=== PATIENT | female | born 1945 | race Caucasian/White ===

== ENCOUNTER → 2016-10-08 | Outpatient (CLI) | payer MEDICARE, BC, OTHER ==
[~2016-10-08] MED LIST: ALEV220C2 PO; CALC600T21 PO; HYDR25TAB PO; TRAM50TA2 PO
[2016-10-08 10:45] LABS: MEAN CORPUSCULAR HEMOGLOBIN 29.4 pg (27.0-33.0); MEAN CORPUSCULAR HGB CONC 33.4 g/dl (32.0-36.5); MEAN CORPUSCULAR VOLUME 88.1 fl (80.0-96.0); WHITE BLOOD COUNT 6.8 K/mm3 (4.0-10.0)
[2016-10-08 10:51] LABS: INR 0.98
[2016-10-08 11:16] LABS: ALBUMIN 4.1 GM/DL (3.2-5.2); ALBUMIN/GLOBULIN RATIO 1.41 (1.00-1.93); ALKALINE PHOSPHATASE 97 U/L (45-117); ALT/SGPT 26 U/L (12-78); ANION GAP 10 MEQ/L (8-16); AST/SGOT 20 U/L (15-37); BILIRUBIN,TOTAL 0.6 MG/DL (0.2-1.0); BLOOD UREA NITROGEN 15 MG/DL (7-18); CALCIUM LEVEL 8.7 MG/DL (8.8-10.2); CARBON DIOXIDE LEVEL 29 MEQ/L (21-32); CHLORIDE LEVEL 101 MEQ/L (98-107); CREATININE FOR GFR 0.82 MG/DL (0.55-1.02); GLOMERULAR FILTRATION RATE > 60.0 (>45); GLUCOSE, FASTING 112 MG/DL (80-110); POTASSIUM SERUM 4.1 MEQ/L (3.5-5.1); SODIUM LEVEL 140 MEQ/L (136-145)
--- NOTE | 2016-10-08 12:27 | REP ---
Chest two views HISTORY: Preop Comparison: None The lungs are clear. The heart is normal in size. The pulmonary vasculature is normal in appearance. The bony structure is intact. IMPRESSION: No acute disease. Signed by Shaun Khoury MD 10/08/2016 12:18 P
--- NOTE | 2016-10-08 22:31 | ECGEPIP ---
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
== END ==
LOC: M ADMPAT 09:24
PROVIDERS: ATTEND Orthopaedic Surgery
DX: Z01.818 Encounter for other preprocedural examination (principal); M17.9 Osteoarthritis of knee, unspecified; I48.91 Unspecified atrial fibrillation; Z79.01 Long term (current) use of anticoagulants; Z79.899 Other long term (current) drug therapy

== ENCOUNTER 2016-10-22 10:00 | Inpatient (IN) | payer MEDICARE, BC, OTHER ==
--- NOTE | 2016-10-15 17:56 | HPE ---
DATE OF ADMISSION: 10/22/2016 CHIEF COMPLAINT: Left knee pain. HISTORY OF PRESENT ILLNESS: This is a pleasant 71-year-old female with progressively worsening left knee pain and stiffness. She has failed to improve with conservative treatment. She has elected for surgery for her continued symptoms. She has pain with weightbearing activities and her activities of daily living. X-rays of her knee are notable for advanced osteoarthritis of the left knee joint. She has consented for a left total knee arthroplasty by Dr. Krzysztof Jones. Medical optimization was performed by Dr. Rodriguez. ALLERGIES: TETRACYCLINE. CURRENT MEDICATIONS: - Hydrochlorothiazide 25 mg a day - Aleve 220 mg as needed - calcium 600 mg every day - tramadol HCl 50 mg one every 4-6 hours as needed PAST MEDICAL HISTORY: Includes hypertension. PAST SURGICAL HISTORY: Includes cataract removal, both eyes, tubal ligation and a lump biopsy. 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 Quit smoking two years ago and does not drink alcohol. FAMILY HISTORY: Noncontributory. REVIEW OF SYSTEMS: This patient denies chest pain, heart palpitations, cough, wheezing, difficulty breathing and shortness of breath. She denies abdominal pain, nausea, vomiting, diarrhea or constipation. She denies recent upper respiratory infection or urinary tract infection symptoms. She does complain of persistent pain in the left knee and pain with weightbearing activities of her left knee. PHYSICAL EXAMINATION: GENERAL: She is well-nourished, well-developed in no acute distress, alert female patient. She walks with a moderate limp favoring her left lower extremity. She does not use assistive devices. VITAL SIGNS: She is 5 feet 3-1/2 inches, weighs 228.4 pounds with a temperature of 96.5, blood pressure 126/88, pulse of 68, respirations of 12. NECK: Supple without adenopathy or jugular venous distension. There were no carotid bruits appreciated upon auscultation. LUNGS: Clear to auscultation without rales or wheeze throughout. HEART: Irregular rate and rhythm. ABDOMEN: Bowel sounds were present. EXTREMITIES: Examination of the knee revealed intact skin. She had decreased range of motion secondary to pain and stiffness and the limb was neurovascularly intact. LABORATORY DATA: EKG showed atrial fibrillation at 68 beats per minute. Chest x-ray showed no acute cardiopulmonary disease processes. Nasal and sinus culture showed normal yves. UA showed 1+ bacteria, otherwise within normal limits with a specific gravity of 1.006. Urine culture showed no growth. Protime was 13.1, INR 0.98. CBC was within normal limits. Sed rate was 15, glucose 112, BUN 15, creatinine 0.82, sodium 140, potassium 4.1. IMPRESSION: 1. Symptomatic osteoarthritis of the left knee joint. 2. Previously undiagnosed atrial fibrillation. PLAN: She is consented for a left total knee arthroplasty by Dr. Krzysztof Jones. That being said, she does have a final clearance appointment with cardiology today with Dr. Alvarez due to her atrial fibrillation. I do not anticipate any issues with that. I believe we will be able to proceed as planned on October 22 for her left total knee arthroplasty.
[~2016-10-22] VITALS: Ht 162.6 cm; Wt 101.0 kg
[~2016-10-22 10:00] MED LIST changes: +BUPIVACAINE HCL 0.5% 10 ML VIAL As Ordered ONE; +EPINEPHrine INJ 1 MG/ML 1ML VIAL/AMP As Ordered ONE; +ROPIvacaine 0.5% 30 ML INJECTION (J2795) As Ordered ONE; +TRANEXAMIC ACID 100 MG/ML 10ML VIAL As Ordered ONE; +ceFAZolin 1GM INJ (J0690) As Ordered ONE
[2016-10-22] MEDS ORDERED: LR 1,000 ML IV SCH ×3 (11:00→16:30)
[2016-10-22] MEDS ORDERED: ACETAMINOPHEN 500 MG TAB PO ONE (11:15)
[2016-10-22] MEDS ORDERED: COUM1TAB17 PO (11:34)
[2016-10-22] MEDS ORDERED: LIDOCAINE 2% INJ 100 MG/5 ML SDV (FOR ANES.) As Ordered ONE (12:24)
[2016-10-22] MEDS ORDERED: MIDAZOLAM INJ 2 MG/2 ML VIAL (J2250) As Ordered ONE ×2 (12:24→12:25)
[2016-10-22] MEDS ORDERED: fentaNYL 100 MCG/2 ML INJECTION (J3010) As Ordered ONE ×3 (12:24→13:27)
[2016-10-22] MEDS ORDERED: PROPOFOL 200 MG/20 ML VIAL As Ordered ONE ×2 (12:24→14:48)
[2016-10-22] MEDS ORDERED: MIDAZOLAM INJ 5 MG/ML VIAL (J2250) IV ONE (13:30)
[2016-10-22] MEDS ORDERED: fentaNYL 100 MCG/2 ML INJECTION (J3010) IV ONE (13:30)
[2016-10-22] MEDS ORDERED: PHENYLephrine HCL 500 MCG/5 ML (100MCG/ML) SYRINGE (J2370) As Ordered ONE (14:27)
[2016-10-22] MEDS ORDERED: ePHEDrine SULFATE 25 MG/5 ML(5MG/ML) SYRINGE As Ordered ONE (14:27)
[2016-10-22] MEDS ORDERED: ONDANSETRON 4MG/2ML VIAL (J2405) As Ordered ONE (15:07)
[2016-10-22] MEDS ORDERED: MORPHINE PCA 1MG/ML 100ML CADD As Ordered ONE (15:42)
[2016-10-22] MEDS ORDERED: EPIDURAL/PCA KEYS XX PRN (16:30)
[2016-10-22] MEDS ORDERED: PATIENT IS CURRENTLY ON AN ON-Q PAIN BUSTER PAIN RELIEF SYSTEM XX SCH (16:30)
[2016-10-22] MEDS ORDERED: ACETAMINOPHEN TAB 650MG DOSE (2X325MG) PO PRN (16:30)
[2016-10-22] MEDS ORDERED: HYDROmorphone HCL 1 MG/ML SYRINGE (J1170) IV PRN (16:30)
[2016-10-22] MEDS ORDERED: NALOXONE INJ 0.4 MG/1 ML VIAL (J2310) IV PRN (16:30)
[2016-10-22] MEDS ORDERED: NALBUPHINE HCL 10 MG/ML AMP (J2300) IV PRN (16:30)
[2016-10-22] MEDS ORDERED: PERCOCET 5MG/325MG TAB PO PRN (16:30)
[2016-10-22] MEDS ORDERED: FLEET ENEMA PR PRN (16:30)
[2016-10-22] MEDS ORDERED: ONDANSETRON 4MG/2ML VIAL (J2405) IV PRN ×2 (16:30)
[2016-10-22] MEDS ORDERED: fentaNYL 100 MCG/2 ML INJECTION (J3010) IV PRN (16:30)
[2016-10-22] MEDS ORDERED: MORPHINE PCA 1MG/ML 100ML CADD IV PRN (16:30)
[2016-10-22] MEDS ORDERED: diphenhydrAMINE INJ 50MG/ML VIAL (J1200) IV PRN (16:30)
[2016-10-22 17:00] VITALS: BP 172/82
[2016-10-22] MEDS ORDERED: WARFARIN SOD 5 MG TAB PO ONE (17:00)
[2016-10-22 17:30] VITALS: BP 147/67
[2016-10-22 18:30] VITALS: BP 132/61
[2016-10-22] MEDS: hydroCHLOROthiazide 25 MG TAB PO SCH (18:44)
[2016-10-22] MEDS: LR 1,000 ML IV SCH (18:44)
--- NOTE | 2016-10-22 20:10 | CR ---
DATE OF CONSULTATION: 10/23/2015 REFERRING PHYSICIAN: Dr. Jones REASON FOR CONSULTATION: Medical management. HOSPITALIZATION COURSE: The patient is a 71-year-old female with a past medical history significant for osteoarthritis, bilateral lower extremity venous stasis, who presented to [facility] on 10/22/2016 for a total left knee replacement by Dr. Jones. The patient has been having chronic left knee pain due to osteoarthritis and the pain has been getting severe and starting to interfere with her activities of daily function. The patient visited Dr. Pan Rodriguez for preoperative clearance on 10/11/2016. Due to the history of abnormal EKG, the patient was referred to see Dr. Bentley on 10/15/2016. The patient was determined not to have any significant cardiac abnormalities and the patient was cleared and optimized for the surgery. PAST MEDICAL HISTORY: 1. Bilateral venous stasis changes of the bilateral lower extremities. 2. Osteoarthritis. PAST SURGICAL HISTORY: 1. Left breast biopsy in 2005 for benign mass. 2. Bilateral cataract surgery in 2004. 3. Tubal ligation in 1976. 4. Tonsillectomy. ALLERGIES: No known drug allergies. CURRENT HOME MEDICATIONS: - hydrochlorothiazide 12.5 mg by mouth daily - Tramadol 50 mg by mouth one daily as needed SOCIAL HISTORY: The patient used to smoke 1-1/2 packs daily for 50 years. She quit 2 years ago. Denies alcohol use. Denies recreational drug use. REVIEW OF SYSTEMS: GENERAL: No fever. No chills. HEENT: No vision changes. No auditory changes. No headaches. LUNGS: No shortness of breath. No cough. No sputum production. CARDIOVASCULAR: No chest pain. No palpitations. GASTROINTESTINAL: No nausea. No vomiting. No abdominal pain. MUSCULOSKELETAL: History of osteoarthritis. Just had a left knee replacement. Otherwise, denies any muscle pain or joint pain. NEUROLOGIC: No numbness or tingling. OBJECTIVE: VITAL SIGNS: Temperature is 97, pulse is 65, respiration rate 18, blood pressure is 103/56, pulse oximetry is 96% with 2 liters nasal cannula. GENERAL: Morbidly obese. No sign of acute distress. Alert and oriented times three. HEENT: Normocephalic, atraumatic. Extraocular motors grossly intact. CARDIOVASCULAR: Positive S1, S2. Regular rate with a heart rate running between 50s to 60s. LUNGS: Clear to auscultation bilaterally. ABDOMEN: Soft, nontender, nondistended. Bowel sounds present. No rebound. No guarding. EXTREMITIES: Wrapped with compression stockings. Bilateral lower extremity swelling. NEUROLOGIC: Sensation to fine touch is grossly intact. LABORATORY DATA: On 10/08/2016 showed WBC of 6.8, hemoglobin 14.3, hematocrit is 42.8, platelet count is 220. Sodium is 140, potassium 4.1, chloride 101, carbon dioxide 25, BUN 15, creatinine 0.82, GFR greater than 60, fasting glucose 112. ASSESSMENT AND PLAN: 1. Total left knee replacement. We will refer to pain management. Activity level, diet and anticoagulation per the primary team. 2. Bilateral lower extremity venous stasis changes. The patient will continue on hydrochlorothiazide. We will follow the patient's progression. 3. History of osteoarthritis. 4. History of glucose impairment. The patient had an A1/c of 6.5 on 04/08/2008; however, the patient's A1/c returned to normal range in 2008 and 2009. We will follow with A1/c tomorrow morning. 5. Deep vein thrombosis (DVT) prophylaxis. The patient has thromboembolic compression stockings (TEDS) and sequential compression device (SCD). We will defer anticoagulation to the primary team.
[2016-10-22 20:30] VITALS: BP 144/62
[2016-10-22 22:00] VITALS: BP 148/64
[2016-10-23 02:00] VITALS: BP 144/62
[2016-10-23] MEDS: LR 1,000 ML IV SCH (04:24)
[2016-10-23 06:00] VITALS: BP 138/72
[2016-10-23 07:09] LABS: MEAN CORPUSCULAR HEMOGLOBIN 27.9 pg (27.0-33.0); MEAN CORPUSCULAR HGB CONC 31.8 g/dl (32.0-36.5); MEAN CORPUSCULAR VOLUME 87.8 fl (80.0-96.0); RED CELL DISTRIBUTION WIDTH 12.8 % (11.5-14.5)
[2016-10-23 07:11] LABS: INR 1.28
[2016-10-23 07:35] LABS: ANION GAP 10 MEQ/L (8-16); BLOOD UREA NITROGEN 14 MG/DL (7-18); CALCIUM LEVEL 8.5 MG/DL (8.8-10.2); CARBON DIOXIDE LEVEL 30 MEQ/L (21-32); CHLORIDE LEVEL 99 MEQ/L (98-107); CREATININE FOR GFR 0.77 MG/DL (0.55-1.02); GLOMERULAR FILTRATION RATE > 60.0 (>45); GLUCOSE, FASTING 132 MG/DL (80-110); SODIUM LEVEL 139 MEQ/L (136-145)
--- NOTE | 2016-10-23 08:59 | RO ---
DATE OF PROCEDURE: 10/22/2016 PREOPERATIVE DIAGNOSIS: Severe varus arthritis left knee. POSTOPERATIVE DIAGNOSIS: Severe varus arthritis left knee. PROCEDURE: Left total knee arthroplasty using a size 4 cruciate retaining femoral component with a size 3 tibial tray with a 15 mm rotating platform polyethylene insert and a 38 mm polyethylene button. All components were cements. Prosthesis made by [employer]. It was a PFC knee. SURGEON: Dre Jones MD OIL HEATERMAN: Timbo Gibbs PA-C ANESTHESIA: Spinal. COMPLICATIONS: None. SPECIMENS: Joint surfaces. ESTIMATED BLOOD LOSS: 20 mL. DRAINS: There was a postoperative PainBuster catheter. DESCRIPTION OF PROCEDURE: Antibiotics were given intravenously preoperatively and a successful spinal anesthetic was induced. Tourniquet was placed left upper thigh and not inflated. Left lower extremity was prepped and draped in the usual sterile fashion and the leg was elevated. After appropriate time out, the tourniquet was inflated to 275 mm of mercury. A longitudinal incision was made for a medial parapatellar approach to the knee. Bovie cautery was used to coagulate crossing vessels. Subperiosteal dissection around the proximal medial portion of the tibia was performed as well as a posteromedial release, given the severe varus deformity using a umaña elevator. Subperiosteal dissection around the proximal portion of the lateral tibial plateau was performed just at the edge for visualization, then we everted the patella and flexed the knee. There was significant wear noted in the medial compartment. The drill was placed down the center of the femoral canal followed by the intramedullary avery and the distal femoral cutting jig set for a 5 degree valgus cut for a left knee at 10 mm resection level. It was pinned in position, then the distal femoral cut performed. The AP sizing jig measured for a size 4 prosthesis and the 30 degree external rotation block was pinned in position followed by the 4-in-1 block. Then we performed the anterior posterior chamfer cuts taking great care to protect the surrounding soft tissues. We then exposed the proximal tibia and used the extramedullary alignment jig to be sure we were parallel to the mechanical axis of the tibia. We referenced off the medial tibial condyle at 4 mm resection level. I did check on the lateral side and it looks as if we were taking 10 mm off the good side, so it seemed to be the appropriate placement. The block was pinned into position and then a secondary check with extramedullary avery confirmed that we appeared to be parallel to the mechanical axis. A proximal tibial osteotomy was then performed. We then placed a lamina dulite machine bluer laterally and performed a completion medial meniscectomy and debridement of the posteromedial osteophytes. We then placed the lamina dulite machine bluer medially and performed a completion lateral meniscectomy with debridement of the posterolateral osteophytes. The spacer block showed that size 15 fit the best. The 12.5 would fit, but she still had a bit of laxity to varus stress testing and a little laxity laterally, this I felt the 15 would be best with a bit of additional medial release. By digital release I performed some more medial release posteromedially and I also decided to size the tibial tray down to a 3 and move it laterally and take off an additional bit of bone along the medial aspect of the proximal tibial for better medial release. Thus the size 3 tibial tray was positioned and then the reamer and broach was applied followed by the trial polyethylene. The saw was used to remove the medial bone. We then placed the number 4 femoral component and brought the knee into extension and she had excellent stability to varus valgus stress testing in both flexion and extension with a 15 mm rotating platform polyethylene trial. The knee was then brought into extension and the patella everted. Patellar osteotomy performed, sized for a 38 button. The lug holes were drilled, patellofemoral tracking was anatomic. We then drilled the lug holes for the femur and removed all the trial components and then prepared the bony surfaces for cementing with pulsatile lavage irrigant solution and drying them thoroughly. As I did this, my veterinary technician assistant, Mr. Timbo Gibbs mixed the cement on the back table. He was also critical to the success of the procedure by helping to manipulate the knee, apply appropriate soft tissue retraction so I could perform the operation smoothly and efficiently, help to close the wound and prepare the patient for surgery as well as many other tasks to help the operation go smoothly and efficiently. I then cemented the tibial tray, removed excess cement and placed the polyethylene. I then cemented the femoral component, removed all the excess cement then brought the knee into extension and then cemented the patellar button, held it with a clamp until the cement hardened, and while I was waiting for that I copiously pulsatile lavage irrigated out the knee once again and then applied the tranexamic acid. I then began closing the arthrotomy at the apex with two #1 PDS sutures, then we closed the medial parapatellar arthrotomy with a single PDS suture, then we used a double armed STRATAFIX to close the capsule, and then allowed the tourniquet to be released. We copiously irrigated between layers, closed the deep subdermal tissues with interrupted #2-0 PDS sutures. Skin was closed with brionna, covered by Adaptic dry sterile bulky dressing. Prior to closing the skin I did place a PainBuster catheter. She was then transferred to the recovery room in stable condition. There were no intraoperative complications.
[2016-10-23] MEDS: hydroCHLOROthiazide 25 MG TAB PO SCH (09:54)
[2016-10-23] MEDS: MOM 30ML SUSPENSION UDC PO SCH (09:54)
[2016-10-23] MEDS: MIRALAX *UNIT DOSE* 17GM PACKET PO SCH (09:54)
[2016-10-23] MEDS: ONDANSETRON 4 MG TAB (S0181) PO PRN ×3 (09:54→18:40)
[2016-10-23] MEDS: SENOKOT S TAB PO SCH ×2 (09:54→21:27)
[2016-10-23] MEDS: PERCOCET 5MG/325MG TAB PO PRN ×4 (09:55→23:06)
--- NOTE | 2016-10-23 10:17 | REP ---
Left knee two views, post operative study: There is a total knee arthroplasty with the components tightly applied and in satisfactory positions alignment both projections. Skin brionna are incidentally noted. Signed by Grant Douglas MD 10/23/2016 10:08 A
[2016-10-23 14:00] VITALS: BP 133/69
[2016-10-23] MEDS ORDERED: GLUCAGON FOR INJ 1 MG VIAL (J1610) SC PRN (15:30)
[2016-10-23] MEDS ORDERED: GLUCOSE 4 GM CHEW TABLET PO PRN (15:30)
[2016-10-23] MEDS ORDERED: DEXTROSE 50% 50 ML SYRINGE IV PRN (15:30)
--- NOTE | 2016-10-23 15:39 | IPN ---
DATE: 10/23/2016 SUBJECTIVE: Patient seen and examined in the room today. Patient does not have any acute complaint or acute changes. No events overnight. Patient tolerated oral diet well. OBJECTIVE: VITAL SIGNS: Temperature 97.5, pulse 54, respirations 18, blood pressure 138/72, pulse ox 99% with 2 liters nasal cannula. GENERAL: No sign of acute distress. Alert and oriented times three. HEENT: Normocephalic, atraumatic. Extraocular motors grossly intact. CARDIOVASCULAR: Positive S1, S2. Regular rate. LUNGS: Clear to auscultation bilaterally. ABDOMEN: Soft, nontender, nondistended. Bowel sounds present. No rebound. No guarding. EXTREMITIES: Bilateral lower extremity edema. Compression stocking in place. LABORATORY DATA: WBC 14, hemoglobin 12.4, hematocrit 39, platelet count 199. Sodium 139, potassium 4, chloride 99, carbon dioxide 30, BUN 14, creatinine 0.77. Glomerular filtration rate (GFR) greater than 60. Fasting glucose is 132 A1c is 6.7, calcium 8.5. ASSESSMENT AND PLAN: 1. Newly diagnosed diabetes. Patient will be on consistent carbohydrate diet. Patient may benefit from starting oral diabetic medication. For now we will cover patient with sliding scale. 2. Bilateral venous stasis of bilateral lower extremities. Patient is taking hydrochlorothiazide. 3. History of osteoarthritis. 4. Total left knee replacement. Today is postoperative day #1. 5. Deep vein thrombosis prophylaxis per orthopedic surgical team.
[2016-10-23] MEDS ORDERED: WARFARIN SOD 5 MG TAB PO ONE (17:00)
[2016-10-23] MEDS: HumaLOG INSULIN (NovoLOG) PER UNIT SC SCH ×2 (17:30→21:00)
[2016-10-23 22:00] VITALS: BP 123/59
[2016-10-24] MEDS: PERCOCET 5MG/325MG TAB PO PRN ×4 (03:06→21:29)
[2016-10-24 06:00] VITALS: BP 137/69
[2016-10-24 07:23] LABS: MEAN CORPUSCULAR HEMOGLOBIN 28.6 pg (27.0-33.0); MEAN CORPUSCULAR HGB CONC 33.2 g/dl (32.0-36.5); MEAN CORPUSCULAR VOLUME 86.2 fl (80.0-96.0)
[2016-10-24 07:37] LABS: INR 1.67
[2016-10-24 07:38] LABS: ANION GAP 9 MEQ/L (8-16); BLOOD UREA NITROGEN 15 MG/DL (7-18); CALCIUM LEVEL 8.4 MG/DL (8.8-10.2); CARBON DIOXIDE LEVEL 29 MEQ/L (21-32); CHLORIDE LEVEL 97 MEQ/L (98-107); GLOMERULAR FILTRATION RATE > 60.0 (>45); GLUCOSE, FASTING 117 MG/DL (80-110); POTASSIUM SERUM 3.7 MEQ/L (3.5-5.1); SODIUM LEVEL 135 MEQ/L (136-145)
[2016-10-24] MEDS: HumaLOG INSULIN (NovoLOG) PER UNIT SC SCH ×4 (08:15→20:07)
[2016-10-24] MEDS: hydroCHLOROthiazide 25 MG TAB PO SCH (08:16)
[2016-10-24] MEDS: SENOKOT S TAB PO SCH ×2 (08:16→20:06)
[2016-10-24] MEDS: MIRALAX *UNIT DOSE* 17GM PACKET PO SCH (08:16)
[2016-10-24] MEDS: MOM 30ML SUSPENSION UDC PO SCH (08:16)
[2016-10-24 14:00] VITALS: BP 125/77
[2016-10-24] MEDS ORDERED: WARFARIN SOD 5 MG TAB PO ONE (17:00)
--- NOTE | 2016-10-24 17:12 | IPN ---
DATE: 10/24/2016 SUBJECTIVE: Patient is seen and examined in the room today. Patient has questions regarding her new diagnosis of diabetes. All of her questions were answered. No overnight events reported. Denies any acute complaints or changes. OBJECTIVE: VITAL SIGNS: Temperature is 98.5, pulse is 79, respirations 18, blood pressure is 137/69, pulse oximetry is 97% in room air. GENERAL: No sign of acute distress, alert and oriented times three, morbidly obese. HEENT: Normocephalic, atraumatic. Extraocular motor grossly intact. CARDIOVASCULAR: Positive S1, S2, regular rate. LUNGS: Clear to auscultation bilaterally. ABDOMEN: Soft, nontender, nondistended. Bowel sounds present. No rebound. No guarding. EXTREMITIES: Mild bilateral lower extremity edema. Compression stocking in place. LABORATORY DATA: WBC 11, hemoglobin 11.5, hematocrit is 34.6, platelet count is 163. Sodium is 135, potassium 3,7, chloride is 97, carbon dioxide 29, BUN is 15, creatinine 0.7. GFR greater than 60. Fasting glucose is 117, calcium is 8.4. PT is 19.8, INR is 1.67. ASSESSMENT AND PLAN: 1. Newly diagnosed diabetes. Patient's A1c is 6.7. Patient will be on consistent-carbohydrate diet. Patient will be on insulin sliding scale. 2. Bilateral venous stasis of lower extremities. Patient is taking hydrochlorothiazide. 3. History of osteoarthritis. 4. Total left knee replacement. Today is postoperative day number two. We will refer the exercise level, diet, pain control, and anticoagulation per the primary orthopedic team. 5. Deep vein thrombosis prophylaxis, per orthopedic surgical team.
[2016-10-24 22:00] VITALS: BP 138/69
[2016-10-25 06:00] VITALS: BP 133/63
[2016-10-25] MEDS: PERCOCET 5MG/325MG TAB PO PRN (06:40)
[2016-10-25 07:18] LABS: MEAN CORPUSCULAR HEMOGLOBIN 28.1 pg (27.0-33.0); MEAN CORPUSCULAR HGB CONC 32.3 g/dl (32.0-36.5); MEAN CORPUSCULAR VOLUME 86.7 fl (80.0-96.0); RED CELL DISTRIBUTION WIDTH 12.9 % (11.5-14.5); WHITE BLOOD COUNT 11.1 K/mm3 (4.0-10.0)
[2016-10-25 07:20] LABS: INR 1.7
[2016-10-25 07:30] LABS: ANION GAP 10 MEQ/L (8-16); BLOOD UREA NITROGEN 16 MG/DL (7-18); CALCIUM LEVEL 8.8 MG/DL (8.8-10.2); CARBON DIOXIDE LEVEL 29 MEQ/L (21-32); CHLORIDE LEVEL 97 MEQ/L (98-107); CREATININE FOR GFR 0.65 MG/DL (0.55-1.02); GLOMERULAR FILTRATION RATE > 60.0 (>45); GLUCOSE, FASTING 126 MG/DL (80-110); POTASSIUM SERUM 3.5 MEQ/L (3.5-5.1); SODIUM LEVEL 136 MEQ/L (136-145)
[2016-10-25] MEDS: HumaLOG INSULIN (NovoLOG) PER UNIT SC SCH ×2 (07:43→12:07)
[2016-10-25] MEDS ORDERED: MAGNESIUM CITRATE 300 ML BTL PO ONE (08:00)
[2016-10-25] MEDS: hydroCHLOROthiazide 25 MG TAB PO SCH (08:30)
[2016-10-25] MEDS: MOM 30ML SUSPENSION UDC PO SCH (08:31)
[2016-10-25] MEDS: MIRALAX *UNIT DOSE* 17GM PACKET PO SCH (08:31)
[2016-10-25] MEDS: SENOKOT S TAB PO SCH (08:31)
[2016-10-25] MEDS ORDERED: PERC5TAB6 PO (08:38)
[2016-10-25] MEDS ORDERED: COUM2.5T11 PO (08:38)
--- NOTE | 2016-10-25 15:55 | IPN ---
DATE: 10/25/2016 SUBJECTIVE: Patient seen and examined in the room today. Patient is determined medically stable for discharge by the primary orthopedic team. Before patient was discharged, I had a length talk about the patient's new diagnosis of diabetes. Patient has a hemoglobin A1c of 6.7. Repeat of morning lab showing patient has a persistent hyperglycemia. I offered patient to start oral diabetes medication; however, patient refused. She would like to discuss the issue with the primary care provider. She will decide whether she wants to start on any type of diabetes medications at that time. OBJECTIVE: VITAL SIGNS: Temperature 97.2, pulse is 101, respirations 16, blood pressure is 133/63, pulse oximetry 91% in room air. GENERAL: No sign of acute distress, alert and oriented times three. HEENT: Normocephalic, atraumatic. Extraocular motor grossly intact. CARDIOVASCULAR: Positive S1, S2, regular rate. LUNGS: Clear to auscultation bilaterally. ABDOMEN: Soft, nontender, nondistended. Bowel sounds present. No rebound. No guarding. EXTREMITIES: Mild bilateral lower extremity swelling. Compression stockings daily in place. No sign of cyanosis. LABORATORY DATA: WBC 11.1, hemoglobin 11.5, hematocrit 35.4, platelet count is 187. Sodium is 136, potassium 3.5, chloride is 97, carbon dioxide 29, BUN is 16, creatinine 0.65, GFR greater than 60, fasting glucose 126, calcium 8.8. ASSESSMENT AND PLAN: 1. Newly diagnosed diabetes. Unfortunately, patient does not want to start on any type of oral diabetic medication. While patient is in the hospital the patient has been covered with sliding scale, and patient has been on consistent-carbohydrate diet. I have discussed with the patient, and patient will discuss the issue with primary care provider in the outpatient followup. 2. Bilateral venostasis of the lower extremities, on hydrochlorothiazide. 3. Total left hip replacement. Today patient is postoperative day 3. Patient determined medically stable for discharge by the orthopedic team. 4. Deep vein thrombosis (DVT) prophylaxis. Patient has thromboembolic deterrents (TEDs) and sequential compression devices.
--- NOTE | 2016-10-28 15:20 | DSES ---
DATE OF ADMISSION: 10/22/2016 DATE OF DISCHARGE: 10/25/2016 ATTENDING PHYSICIAN: Dre Jones MD ADMISSION DIAGNOSIS: Osteoarthritis left knee. OTHER DIAGNOSIS: Bilateral lower extremity venous stasis. DISCHARGE DIAGNOSIS: Osteoarthritis left knee, status post left total knee arthroplasty. HISTORY: This is a pleasant 71-year-old female with progressively worsening left knee pain and stiffness. She failed to improve with conservative management. She was admitted for elective knee replacement on the left side. OPERATION PERFORMED: Left total knee arthroplasty. HOSPITAL COURSE: The patient was admitted on day of surgery and underwent a left total knee arthroplasty which was uneventful. She did well in the postoperative period and her hospital course. She was diagnosed with type 2 diabetes due to her persistent elevated glucose, and elevated A1c. She was treated with sliding scale insulin while in the hospital and was recommended to start oral diabetic medications, but declined that and preferred to see her primary director of primary care on discharge to discuss the newly diagnosed diabetes. On day of discharge she was doing well, weightbearing as tolerated on the left lower extremity. She will move her left knee to prevent stiffness. She will use adjusted dose of Coumadin and TRUONG stockings for 30 days postoperative for deep venous thrombosis (DVT) prophylaxis. She will resume her preoperative medications and diet. She was given instructions to include but not limited to wound monitoring activity limitations. She will use oral pain medications for pain control. She will follow up in our office in 10-14 days for surgical followup. Also encouraged the patient to followup with their primary for a new diagnosis of diabetes. She did once again decline medications while in the hospital. Please refer to the medical record for further details.
== END 2016-10-25 13:19 | disposition home health service (06) | DRG 470 ==
LOC: M OR 10:53 → M MS5PR 17:05
PROVIDERS: ADMIT Orthopaedic Surgery; ATTEND Orthopaedic Surgery
PROC: 0SRD0J9 Replacement of Left Knee Joint with Synthetic Substitute, Cemented, Open Approach (ICD-10-PCS; principal; 2016-10-22 12:20)
DX: M17.12 Unilateral primary osteoarthritis, left knee (principal); R26.89 Other abnormalities of gait and mobility; E11.9 Type 2 diabetes mellitus without complications; I87.2 Venous insufficiency (chronic) (peripheral); Z87.891 Personal history of nicotine dependence; Z79.1 Long term (current) use of non-steroidal anti-inflammatories (NSAID); Z79.891 Long term (current) use of opiate analgesic; Z79.899 Other long term (current) drug therapy

== ENCOUNTER → 2016-10-29 | Outpatient (REF) | payer MEDICARE, OTHER ==
[~2016-10-29] MED LIST changes: -BUPIVACAINE HCL 0.5% 10 ML VIAL As Ordered ONE; +COUM1TAB17 PO; +COUM2.5T11 PO; -EPINEPHrine INJ 1 MG/ML 1ML VIAL/AMP As Ordered ONE; +PERC5TAB6 PO; -ROPIvacaine 0.5% 30 ML INJECTION (J2795) As Ordered ONE; -TRANEXAMIC ACID 100 MG/ML 10ML VIAL As Ordered ONE; -ceFAZolin 1GM INJ (J0690) As Ordered ONE
[2016-10-29 14:58] LABS: INR 1.88
== END ==
LOC: M LAB REF 14:29
PROVIDERS: ATTEND Nurse Practitioner Family
DX: Z79.01 Long term (current) use of anticoagulants (principal)

== ENCOUNTER → 2016-10-31 | Outpatient (REF) | payer MEDICARE, OTHER ==
[2016-10-31 10:24] LABS: INR 1.88
== END ==
LOC: M LAB REF 10:04
PROVIDERS: ATTEND Nurse Practitioner Family
DX: Z51.81 Encounter for therapeutic drug level monitoring (principal); Z79.01 Long term (current) use of anticoagulants

== ENCOUNTER → 2016-11-04 | Outpatient (REF) | payer MEDICARE, OTHER ==
[2016-11-04 12:40] LABS: INR 2.13
== END ==
LOC: M LAB REF 11:44 → M SHH 11:44
PROVIDERS: ATTEND Nurse Practitioner Family
DX: Z79.01 Long term (current) use of anticoagulants (principal)

== ENCOUNTER → 2016-11-07 | Outpatient (REF) | payer MEDICARE, OTHER ==
[2016-11-07 12:33] LABS: INR 1.67
== END ==
LOC: M LAB REF 11:56
PROVIDERS: ATTEND Nurse Practitioner Family
DX: Z79.01 Long term (current) use of anticoagulants (principal); Z47.1 Aftercare following joint replacement surgery

== ENCOUNTER → 2016-11-11 | Outpatient (REF) | payer MEDICARE, OTHER ==
[2016-11-11 15:52] LABS: INR 1.2
== END ==
LOC: M SHH 14:52
PROVIDERS: ATTEND Nurse Practitioner Family
DX: Z79.01 Long term (current) use of anticoagulants (principal)

== ENCOUNTER → 2016-11-14 | Outpatient (REF) | payer MEDICARE, OTHER | LOC: M SHH 13:03 | PROVIDERS: ATTEND Nurse Practitioner Family | DX: Z79.01 Long term (current) use of anticoagulants (principal) ==

== ENCOUNTER → 2016-11-18 | Outpatient (REF) | payer MEDICARE, OTHER ==
[2016-11-18 12:26] LABS: INR 1.77
== END ==
LOC: M LAB REF 11:51 → M SHH 11:51
PROVIDERS: ATTEND Internal Medicine
DX: Z79.01 Long term (current) use of anticoagulants (principal)

== ENCOUNTER → 2017-07-01 | Outpatient (CLI) | payer MEDICARE, BC, OTHER ==
[~2017-07-01] MED LIST changes: -CALC600T21 PO; +CALC600T60 PO; -COUM2.5T11 PO; +COUM2.5T17 PO; +PERC5TAB12 PO; -PERC5TAB6 PO
[2017-07-01 11:51] LABS: MEAN CORPUSCULAR HEMOGLOBIN 27.7 pg (27.0-33.0); MEAN CORPUSCULAR HGB CONC 31.8 g/dl (32.0-36.5); MEAN CORPUSCULAR VOLUME 87.1 fl (80.0-96.0); PLATELET COUNT, AUTOMATED 217 10^3/uL (150-450); RED CELL DISTRIBUTION WIDTH 13.5 % (11.5-14.5); WHITE BLOOD COUNT 5.8 10^3/uL (4.0-10.0)
[2017-07-01 12:00] LABS: INR 0.97
[2017-07-01 12:01] LABS: ALBUMIN 4.3 GM/DL (3.2-5.2); ALBUMIN/GLOBULIN RATIO 1.39 (1.00-1.93); ALKALINE PHOSPHATASE 96 U/L (45-117); ALT/SGPT 28 U/L (12-78); ANION GAP 6 MEQ/L (8-16); AST/SGOT 18 U/L (7-37); BILIRUBIN,TOTAL 0.7 MG/DL (0.2-1.0); BLOOD UREA NITROGEN 18 MG/DL (7-18); CALCIUM LEVEL 9.8 MG/DL (8.8-10.2); CARBON DIOXIDE LEVEL 33 MEQ/L (21-32); CHLORIDE LEVEL 102 MEQ/L (98-107); CREATININE FOR GFR 0.71 MG/DL (0.55-1.02); GLOMERULAR FILTRATION RATE > 60.0 (>39); GLUCOSE, FASTING 118 MG/DL (83-110); POTASSIUM SERUM 4.6 MEQ/L (3.5-5.1); SODIUM LEVEL 141 MEQ/L (136-145); TOTAL PROTEIN 7.4 GM/DL (6.4-8.2)
[2017-07-01 12:17] LABS: ERYTHROCYTE SEDIMENTATION RATE 8 mm/hr (0-30)
--- NOTE | 2017-07-01 13:49 | REP ---
CHEST, TWO VIEWS: COMPARISON: 10/08/2016. There is no evidence of acute infiltrate. No pleural effusion is seen. The heart is normal in size. The mediastinal silhouette is unremarkable. The visualized osseous structures are intact. IMPRESSION: No acute pulmonary disease. Signed by Grant Lowery MD 07/01/2017 04:57 P
--- NOTE | 2017-07-01 21:58 | ECGEPIP ---
Stationary ECG Study [facility] Test Date: 2017-07-01 Pat Name: JOAQUIM BERG Department: Room: - Gender: F Plate Conditioner: : 1945 Requested By: Dre Blankenship Order Number: [id number] Reading MD: Jason Patel Measurements Intervals [place] Rate: 80 P: 85 [place]: 160 QRS: 12 QRSD: 90 T: 67 QT: 368 QTc: 425 Interpretive Statements Normal sinus rhythm Right atrial enlargement Low QRS complex voltage in the limb leads Nonspecific T wave abnormality Probable pulmonary disease No significant change when compared to prior tracing of 10/08/2016 Electronically Signed On 07-01-2017 21:57:46 EST by Jason Patel
== END ==
LOC: M ADMPAT 09:28
PROVIDERS: ATTEND Orthopaedic Surgery
DX: Z01.818 Encounter for other preprocedural examination (principal); M17.11 Unilateral primary osteoarthritis, right knee; Z79.899 Other long term (current) drug therapy

== ENCOUNTER 2017-07-15 07:27 | Inpatient (IN) | payer MEDICARE, BC, OTHER ==
[2017-07-01 10:20] VITALS: BP 140/84
--- NOTE | 2017-07-11 10:45 | HPE ---
DATE OF ADMISSION: 07/15/2017 ATTENDING PHYSICIAN: Dre Jones MD CHIEF COMPLAINT: Right knee pain and stiffness. HISTORY: Patient is a pleasant 72-year-old female with progressively worsening right knee pain and stiffness. She failed to improve with conservative measures. She continues to have symptoms with weightbearing activities and activities of daily living (ADL). The patient has consented for an elective right total knee arthroplasty with Dr. Jones. Medical optimization received from Dr. Rodriguez's office and was reviewed at the time of visit. CURRENT MEDICATIONS: - hydrochlorothiazide 12.5 mg daily - calcium 600 mg daily - Aleve 220 mg twice daily as needed ALLERGIES: 1. BACTRIM. PAST MEDICAL HISTORY: Peripheral edema with venous stasis. Diastolic dysfunction. Impaired fasting glucose. PAST SURGICAL HISTORY: Left breast biopsy. Bilateral cataract removal. Tubal ligation. Tonsillectomy. Left total knee arthroplasty. TOBACCO USE: Patient is a former smoker and quit within the past year. ALCOHOL USE: Rarely. REVIEW OF SYSTEMS: Patient denies fevers, chills, nausea, vomiting or diarrhea. She denies chest pain, shortness of breath, headache, cough or abdominal pain. She does have right knee pain with weightbearing activities and activities of daily living (ADL). PHYSICAL EXAMINATION: VITAL SIGNS: Height 64.5 inches, weight 228 pounds, temperature 97.8, blood pressure 112/62, heart rate 70, respirations 16. NECK: Supple without lymphadenopathy. HEART: Regular rate and rhythm. LUNGS: Clear to auscultation bilaterally. ABDOMEN: Bowel sounds present. Soft, nontender to palpation. MUSCULOSKELETAL: Inspection of the right knee does show a mild amount of diffuse edema. There was tenderness along the medial and lateral joint lines. There is a significant amount of venous stasis, but that is compatible with that on the left lower extremity. The patient can extend knee to almost 0 degrees and flex to approximately 100 degrees. Right lower extremity strength is normal. There was no hip irritability elicited with range of motion. Her calf is soft, nontender to palpation with no palpable cords noted. LABORATORY DATA: Chest x-ray shows no acute cardiopulmonary disease. EKG normal sinus rhythm. Right atrial enlargement. Low QRS complex voltage in the limb leads. Nonspecific T wave abnormality. Probable pulmonary disease. Urinalysis positive for 1+ blood. Urine culture positive for Streptococcus agalactiae group B. Nasal and sinus culture heavy growth of staphylococcus Aureus. Prothrombin time 13, INR 0.97. Comprehensive metabolic profile: Fasting glucose elevated at 118, BUN 18, creatinine for GFR 0.71, GFR greater than 60, sodium 141, potassium 4.6, chloride 102, carbon dioxide decreased at 33, anion gap decreased at 6, calcium 9.8, AST 18, ALT 28, alkaline phosphatase 96, total bilirubin 0.7, total protein 7.4, albumin 4.3, albumin globulin ration 1.39. Complete blood count: WBC is 5.8, RBC 5.17, hemoglobin 14.2, hematocrit 44.6, platelets 217, erythrocyte sedimentation rate 8. IMPRESSION: 1. Right knee osteoarthritis (OA). 2. Nasal and sinus culture positive for heavy growth of Staphylococcus Aureus. 3. Urinary tract infection. PLAN: 1. Patient has consented for an elective right total knee arthroplasty with Dr. Jones. Medical optimization complete with Dr. Rodriguez and was available for review. 2. Treated per protocol with Hibiclens and Bactroban. 3. Patient treated with ciprofloxacin 500 mg twice daily. MTDD
[2017-07-15] VITALS (8 sets, daily range): BP systolic 138–191; BP diastolic 73–87
[~2017-07-15] VITALS: Ht 162.6 cm; Wt 102.5 kg
[~2017-07-15 07:27] MED LIST changes: +BUPIVACAINE HCL 0.25% 30 ML VIAL As Ordered ONE; +BUPIVACAINE LIPOSOME/PF 1.3% 20 ML VIAL (13.3MG/ML)(EXPAREL) As Ordered ONE; +EPINEPHrine INJ 1 MG/ML 1ML AMP As Ordered ONE; +TRANEXAMIC ACID 100 MG/ML 10ML VIAL As Ordered ONE; +ceFAZolin 1GM INJ (J0690 PER 500MG) As Ordered ONE
[2017-07-15] MEDS ORDERED: LR 1,000 ML IV ONE (07:30)
[2017-07-15] MEDS ORDERED: ACETAMINOPHEN 500 MG TAB PO ONE (07:45)
[2017-07-15] MEDS ORDERED: LIDOCAINE 1% MDV 20ML VIAL SQ PRN (07:45)
[2017-07-15] MEDS ORDERED: fentaNYL 100 MCG/2 ML INJECTION (J3010) As Ordered ONE (08:07)
[2017-07-15] MEDS ORDERED: MIDAZOLAM INJ 2 MG/2 ML VIAL (J2250) As Ordered ONE ×3 (08:07→10:49)
[2017-07-15] MEDS ORDERED: MIDAZOLAM INJ 2 MG/2 ML VIAL (J2250) IV ONE (09:15)
[2017-07-15] MEDS ORDERED: fentaNYL 100 MCG/2 ML INJECTION (J3010) IV ONE (09:15)
[2017-07-15] MEDS ORDERED: ONDANSETRON 4MG/2ML VIAL (J2405) As Ordered ONE (09:46)
[2017-07-15] MEDS ORDERED: PROPOFOL 200 MG/20 ML VIAL As Ordered ONE (09:46)
[2017-07-15] MEDS ORDERED: LIDOCAINE 2% INJ 100 MG/5 ML SDV (FOR ANES.) As Ordered ONE (09:46)
[2017-07-15] MEDS ORDERED: levETIRAcetam 250MG TABLET (KEPPRA) PO ONE (10:00)
[2017-07-15] MEDS ORDERED: ePHEDrine SULFATE 25 MG/5 ML(5MG/ML) SYRINGE As Ordered ONE (10:22)
[2017-07-15] MEDS ORDERED: MORPHINE 1MG/ML IN 0.9% NACL 100ML IV BAG As Ordered ONE (10:59)
[2017-07-15] MEDS ORDERED: DEXTROSE 50% 50 ML SYRINGE IV PRN (11:45)
[2017-07-15] MEDS ORDERED: GLUCOSE 4 GM CHEW TABLET PO PRN (11:45)
[2017-07-15] MEDS ORDERED: GLUCAGON FOR INJ 1 MG VIAL (J1610) SC PRN (11:45)
[2017-07-15] MEDS ORDERED: fentaNYL 100 MCG/2 ML INJECTION (J3010) IV PRN (12:00)
[2017-07-15] MEDS ORDERED: NALOXONE INJ 0.4 MG/1 ML VIAL (J2310) IV PRN (12:00)
[2017-07-15] MEDS ORDERED: FLEET ENEMA PR PRN (12:00)
[2017-07-15] MEDS ORDERED: ONDANSETRON 4MG/2ML VIAL (J2405) IV PRN ×2 (12:00)
[2017-07-15] MEDS ORDERED: diphenhydrAMINE INJ 50MG/ML VIAL (J1200) IV PRN (12:00)
[2017-07-15] MEDS ORDERED: EPIDURAL/PCA KEYS XX PRN (12:00)
[2017-07-15] MEDS ORDERED: MORPHINE 1MG/ML IN 0.9% NACL 100ML IV BAG IV PRN (12:00)
[2017-07-15] MEDS ORDERED: NALBUPHINE HCL 10 MG/ML AMP (J2300) IV PRN (12:00)
[2017-07-15] MEDS ORDERED: PERCOCET 5MG/325MG TAB PO PRN (12:00)
[2017-07-15] MEDS ORDERED: LR 1,000 ML IV SCH (12:00)
[2017-07-15] MEDS ORDERED: ACETAMINOPHEN TAB 650MG DOSE (2X325MG) PO PRN (12:00)
[2017-07-15] MEDS: HumaLOG INSULIN (NovoLOG) PER UNIT SC SCH ×3 (12:00→20:25)
--- NOTE | 2017-07-15 12:38 | RO ---
DATE OF PROCEDURE: 07/15/2017 PREOPERATIVE DIAGNOSIS: Valgus tricompartmental degenerative arthritis of the right knee. POSTOPERATIVE DIAGNOSIS: Valgus tricompartmental degenerative arthritis of the right knee. PROCEDURE: Right total knee arthroplasty using a size 4 cruciate retaining narrow femoral component with a size 4 tibial tray with a 15 mm rotating platform polyethylene insert and a 35 mm polyethylene button. All components were cemented. Prosthesis was made by [employer]. It was a PFC knee. SURGEON: Dre Jones MD DIAGNOSTICS SALES DEVELOPER: ELIOT Prado ANESTHESIA: Spinal with right femoral nerve block. COMPLICATIONS: None. ESTIMATED BLOOD LOSS: Less than 20 mL. SPECIMENS: Joint surface. PROCEDURE: Antibiotics were given intravenously preoperatively. Then a successful right femoral nerve block then spinal anesthetic was induced. Tourniquet placed right thigh, not inflated. A Luu catheter was placed. The right lower extremity was then carefully prepped and draped in the usual sterile fashion, then the leg was elevated. Then, after appropriate time out, the tourniquet was inflated then a longitudinal incision was made for a medial parapatellar approach to the knee. Bovie cautery was used to coagulate the crossing vessels. There were several large varicose veins noted in the crossing down to the deep fascia. The arthrotomy was performed, limited subperiosteal dissection from the proximal medial tibia was performed because of the valgus knee. Then we released along the proximal lateral tibial plateau. Then we everted the patella and flexed the knee. Some of the bony prominences medially were flattened with the saw. Then the drill was placed down the center of the femoral canal. Then an intramedullary avery placed followed by distal femoral cutting jig set at 5 degree valgus cut for a right knee at 10 mm resection level. Block was pinned into position and distal femoral cut was then performed. AP sizing jig measured for a size 4. The 3 degree external rotation block was pinned into position followed by the 4-in-1 block, then attached to the distal femur. Then taking great care to protect the surrounding soft tissues, the anterior/posterior chamfer cuts were performed. We then exposed the proximal tibia and we used the extramedullary alignment jig to estimate being parallel to the mechanical axis of the tibia referencing off the lateral tibial condyle. We set the jig at about the 4 mm level and it corresponded to about 8 mm on the good side. The block was then pinned into position and the extramedullary avery was used as a secondary check to be sure that we appear to be parallel to the mechanical axis. The proximal tibial osteotomy was then performed and then placed the lamina television schedule coordinator medially and performed a completion lateral meniscectomy and debridement of the posterolateral osteophytes. She had a very large posterior osteophyte that was unable to be removed in one piece and thus I had to basically shell it out with a combination of the small and large rongeurs and curettes. Just a thin remnant of some bony membrane remained on the posterolateral capsule. Large osteophytes laterally were also debrided with a rongeur all the way back to the posterior aspect of the femoral condyle. The lamina television schedule coordinator was then placed laterally and we performed a completion medial meniscectomy and debridement of the posterior medial osteophytes. Spacer blocks were then trialed starting with a 10. There was some asymmetric tightness both in flexion and extension laterally, and thus I went all the way up tot he 12.5 and it was still a bit snug laterally and a little bit loose medially. I thought a 15 would fit best if we could loosen it up a bit laterally. Thus with the knee in extension and using the lamina television schedule coordinator, I did a piecrust technique to the lateral collateral ligament nicely opening it up laterally and this allowed the 15 mm space block to fit allowing good stability to varus valgus stress testing both in flexion and in extension and she had full extension and flexion. I then removed the spacer block, exposed the proximal tibia, sized for a #4 tray, which was pinned into position followed by the reamer and broach. Trial polyethylene was then placed followed by the trial femoral component, brought the knee into extension, everted the patellar, performed patellar osteotomy, sized for a 35 button. The lug holes were drilled. The trial patellar component was placed and the patellofemoral tracking was anatomic. We then drilled the lug holes for the femur, removed all the trial components, copiously pulsatile lavage irrigated out the knee and instilled Exparel into the periosteum with the femur and the tibia and the posterior capsule as well as along the capsular edges. Then my assistant passenger locomotive engineer Mr. Anthony mixed the cement on the back table as I prepared the bony surfaces for cementing with a copious amount of pulsatile lavage irrigant solution. Mr. Anthony was also critical to the success of the procedure by helping to manipulate the knee, help apply appropriate soft tissue retraction, help to mix the cement, help to close the wound, and help prepare the patient otherwise so I could perform the operation smoothly and efficiently. Once all the bony surfaces were thoroughly dried, I cemented the tibial tray, removed excess cement, placed the polyethylene, cemented the femoral component, removed excess cement and then brought the knee into extension and cemented the patellar button and held it with a clamp in extension until the cement had hardened and as we were waiting for that, we copiously irrigated out the knee joint once again throughout and then instilled tranexamic acid. We then closed the apex of the wound with interrupted #2-0 PDS suture and then the medial parapatellar area was closed with a single #1 PDS suture and then a running #1 double arm STRATAFIX was used the close the capsule, then we released the tourniquet and irrigated again, and then closed the deep subdermal tissues with interrupted #2-0 PDS sutures. Skin was closed with brionna, covered by Adaptic dry sterile bulky dressing. She was then transferred to the recovery room in stable condition. There were no intraoperative complications.
[2017-07-15] MEDS ORDERED: dexameTHASONE 10 MG/1 ML VIAL PRES.FREE (J1100) ONE (14:15)
[2017-07-15] MEDS ORDERED: ROPIvacaine 0.5% 30 ML INJECTION (J2795 PER 1MG) ONE (14:15)
--- NOTE | 2017-07-15 14:32 | CR.PDOC ---
[facility] Consultation Consultation DATE OF CONSULTATION: 07/15/2017 PRIMARY CARE PHYSICIAN: Shelbi Harrington REFERRING PROVIDER: Krzysztof Fischer ATTENDING PHYSICIAN: Krzysztof Fischer REASON FOR CONSULTATION/CHIEF COMPLAINT: Presented to [facility] for an elective total right knee arthroplasty. HISTORY OF PRESENT ILLNESS: Patient is a 72-year-old female with a PMHx of Peripheral edema, Chronic venous stasis ulcers, Diastolic Dysfunction (No ECHO report), Impaired fasting glucose who presented to [facility] for an elective total right knee arthroplasty with Dr. Krzysztof Fischer. Patient received medical clearance as an outpatient with Dr. Shaun Rodriguez who evaluated the patient on June 08. Patient failed to improve with physical therapy or medications and was experiencing persistent right knee pain. She was having difficulty with ambulation and difficulty with her activities of daily living. She received joint injections that have provided her temporary relief. She had received a total left knee arthroplasty October 2016 has been tolerating that procedure well. Patient is currently seen postoperatively. She denies any nausea, vomiting, chest pain, shortness of breath, palpitations, cough, abdominal pain, constipation, diarrhea or dysuria. Patient was that she was recently treated for a urinary tract infection and received 5 day course of ciprofloxacin ALLERGIES: Please see below. HOME MEDICATIONS: Please see below. PAST MEDICAL HISTORY: Peripheral edema, Chronic venous stasis ulcers, Diastolic Dysfunction (No ECHO report), Impaired fasting glucose PAST SURGICAL HISTORY: Left breast biopsy greater than 10 years ago before to be benign Bilateral cataract removal Tubal ligation Tonsillectomy Left knee total arthroplasty October 2016 FAMILY HISTORY: - Mother with history of diabetes type 2 - Father with history of Alzheimers dementia - No history of malignancies SOCIAL HISTORY: - Denies the use of alcohol or illicit drugs; quit smoking 3 years prior, but a smoker of 60 years at one [facility] - Denies recent travel or sick contacts - Lives with - Occupation; currently works at [employer] REVIEW OF SYSTEMS: 10 point review of systems negative; otherwise stated in HPI PHYSICAL EXAMINATION: - Vitals: BP 129/63, HR 72, RR 16, Sat 100%NC2L, Temp 98.3F - General: Lying in bed, No acute distress, Speaking in full sentences, AAOx3 - HEENT: NC, AT, PERRLA, EOMI - CVS: RRR, +S1S2, - Lungs: Fair air entry bilaterally, Clear to auscultation, No wheezing / rales / rhonchi - Abdomen: Soft, Non-distended, Non-tender - Extremities: No lower extremity edema, No calf tenderness - Neuro: No focal motor or sensory deficit - Skin: Chronic venous skin changes noted bilaterally LABORATORY DATA: Please see below. ASSESSMENT/PLAN: Right knee pain, likely 2/2 osteoarthritis - s/p total right knee arthroplasty ( POD#0) - Presented for an elective procedure by Dr. Krzysztof Fischer - Pain management and anticoagulation as per primary team Peripheral edema with chronic venous stasis ulcers - No evidence of lurks from edema noted - Has been on hydrochlorothiazide as an outpatient - Will hold that medication at this point until lab work is available tomorrow morning Diastolic Dysfunction - No ECHO report Impaired fasting glucose - Will check A1c tomorrow morning - Continue with insulin sliding scale and before meals at bedtime glucose monitoring DVT prophylaxis - As per primary team Vital Signs/I&O Vital Signs Date Time Temp Pulse Resp B/P (MAP) Pulse Ox O2 Delivery O2 Flow Rate FiO2 07/15/17 13:34 82 16 144/61 (88) 99 Nasal Cannula 2 07/15/17 13:19 98.2 I&O- Last 24 Hours up to 6 AM 07/16/17 06:00 Intake Total 1900 ml Output Total 175 ml Balance 1725 ml Allergies Coded Allergies: Sulfamethoxazole w/Trimethoprim (Unverified Allergy, Intermediate, rash hives, 07/15/17) Tetracycline (Verified Allergy, Intermediate, HIVES/ITCHING, 07/15/17) Home Medications Scheduled (Aleve) 220 Mg Cap, 440 MG PO QAM, (Reported) Hydrochlorothiazide (Hydrochlorothiazide) 25 Mg Tab, 12.5 MG PO DAILY, (Reported ) ROSAS DHILLON MD Jul 15, 2017 14:32
[2017-07-15] MEDS: LR 1,000 ML IV SCH (14:49)
[2017-07-15] MEDS ORDERED: WARFARIN SOD 5 MG TAB PO ONE (17:00)
[2017-07-16] MEDS: LR 1,000 ML IV SCH (00:16)
[2017-07-16 02:00] VITALS: BP 142/74
[2017-07-16 06:00] VITALS: BP_SYST 130; BP_SYST 132; BP_DIAS 61; BP_DIAS 65
[2017-07-16] MEDS ORDERED: PERCOCET 5MG/325MG TAB PO PRN (07:15)
[2017-07-16] MEDS ORDERED: ONDANSETRON 4 MG TAB (S0181) PO PRN (07:15)
[2017-07-16 07:29] LABS: BASO % 0.2 % (0.0-1.0); EOS % 0.1 % (0.0-3.0); IMMATURE GRANULOCYTE % 0.3 % (0-0); LYMPH # 1.6 10^3/uL (1.5-4.5); LYMPH % 13.7 % (24.0-44.0); MEAN CORPUSCULAR HEMOGLOBIN 27.6 pg (27.0-33.0); MEAN CORPUSCULAR VOLUME 86.2 fl (80.0-96.0); MONO # 1.4 10^3/uL (0.0-0.8); MONO % 12.3 % (0.0-5.0); NEUTROPHILS # 8.3 10^3/uL (1.8-7.7); NEUTROPHILS % 73.4 % (36.0-66.0); PLATELET COUNT, AUTOMATED 187 10^3/uL (150-450); RED CELL DISTRIBUTION WIDTH 13.8 % (11.5-14.5); WHITE BLOOD COUNT 11.3 10^3/uL (4.0-10.0)
[2017-07-16] MEDS: HumaLOG INSULIN (NovoLOG) PER UNIT SC SCH ×4 (07:30→21:00)
[2017-07-16 07:43] LABS: INR 1.25
[2017-07-16 07:47] LABS: ALBUMIN 3.2 GM/DL (3.2-5.2); ALBUMIN/GLOBULIN RATIO 1.07 (1.00-1.93); ALKALINE PHOSPHATASE 73 U/L (45-117); ALT/SGPT 21 U/L (12-78); ANION GAP 8 MEQ/L (8-16); AST/SGOT 11 U/L (7-37); BILIRUBIN,TOTAL 0.6 MG/DL (0.2-1.0); BLOOD UREA NITROGEN 18 MG/DL (7-18); CALCIUM LEVEL 8.4 MG/DL (8.8-10.2); CARBON DIOXIDE LEVEL 30 MEQ/L (21-32); CHLORIDE LEVEL 101 MEQ/L (98-107); CREATININE FOR GFR 0.71 MG/DL (0.55-1.02); GLOMERULAR FILTRATION RATE > 60.0 (>39); GLUCOSE, FASTING 134 MG/DL (83-110); MAGNESIUM LEVEL 1.8 MG/DL (1.8-2.4); POTASSIUM SERUM 4.2 MEQ/L (3.5-5.1); SODIUM LEVEL 139 MEQ/L (136-145); TOTAL PROTEIN 6.2 GM/DL (6.4-8.2)
[2017-07-16] MEDS: MIRALAX *UNIT DOSE* 17GM PACKET PO SCH (08:21)
[2017-07-16] MEDS: MOM 30ML SUSPENSION UDC PO SCH (08:27)
[2017-07-16] MEDS: SENOKOT S TAB PO SCH ×2 (08:27→19:50)
[2017-07-16] MEDS ORDERED: ENOXAPARIN 40 MG/0.4 ML SYRINGE (J1650) SC ONE (09:30)
[2017-07-16] MEDS ORDERED: PERC5TAB12 PO (09:52)
[2017-07-16] MEDS ORDERED: COUM2.5T17 PO (09:52)
[2017-07-16] MEDS: PERCOCET 5MG/325MG TAB PO PRN ×3 (10:40→19:49)
--- NOTE | 2017-07-16 10:46 | REP ---
RIGHT KNEE, TWO VIEWS: HISTORY: Knee replacement. The patient is status post right total knee replacement. There is no acute fracture or dislocation. Subcutaneous air and surgical brionna are present in the overlying soft tissue. IMPRESSION: The patient is status post right total knee replacement. There is anatomic alignment. Signed by Shaun Khoury MD 07/16/2017 10:53 A
--- NOTE | 2017-07-16 12:06 | IPNPDOC ---
Text Note Date of Service The patient was seen on 07/16/17. NOTE Subjective: Patient is a 72-year-old female with a PMHx of Peripheral edema, Chronic venous stasis ulcers, Diastolic Dysfunction (No ECHO report), Impaired fasting glucose who presented to [facility] for an elective total right knee arthroplasty with Dr. Krzysztof Fischer. Patient was seen and examined at the bedside. She denies any acute events overnight. Currently, he is not reporting any pain. Will continue physical therapy today likely will be discharged tomorrow. Objective: Vitals (See below) General: Lying in bed, no acute distress, comfortable, AAOx3 HEENT: NC, AT CVS: RRR, +S1S2 Lungs: Fair air entry b/l, -w/r/r Abdomen: Soft, ND, NT Extremities: - Edema, - Calf tenderness Assessment and plan: Right knee pain, likely 2/2 osteoarthritis - s/p total right knee arthroplasty ( POD#1) - Presented for an elective procedure by Dr. Krzysztof Fischer - Pain management and anticoagulation as per primary team Peripheral edema with chronic venous stasis ulcers - No evidence of lower extremity edema noted - Will restart HCTZ today Diastolic Dysfunction - No ECHO report DM2 - A1c of 7.0; patient does meet criteria for diagnosis (A1c >=6.5) - c/w insulin sliding scale and before meals at bedtime glucose monitoring - Will advise the patient about life style changes; possible consider starting metformin DVT prophylaxis - As per primary team VSCindy, I+O VS, Cindy, I+O Laboratory Tests 07/16/17 06:55 Red Blood Count 4.28, Mean Corpuscular Volume 86.2, Mean Corpuscular Hemoglobin 27.6, Mean Corpuscular Hemoglobin Concent 32.0, Red Cell Distribution Width 13.8 , Neutrophils (%) (Auto) 73.4 H, Lymphocytes (%) (Auto) 13.7 L, Monocytes (%) ( Auto) 12.3 H, Eosinophils (%) (Auto) 0.1, Basophils (%) (Auto) 0.2, Neutrophils # (Auto) 8.3 H, Lymphocytes # (Auto) 1.6, Monocytes # (Auto) 1.4 H, Eosinophils # (Auto) 0.0, Basophils # (Auto) 0.0, Calcium Level 8.4 L, Aspartate Amino Transf (AST/SGOT) 11, Alanine Aminotransferase (ALT/SGPT) 21, Alkaline Phosphatase 73, Total Bilirubin 0.6, Total Protein 6.2 L, Albumin 3.2 Vital Signs Date Time Temp Pulse Resp B/P (MAP) Pulse Ox O2 Delivery O2 Flow Rate FiO2 07/16/17 10:40 20 07/16/17 06:00 97.6 87 130/61 (84) 92 Room Air 07/15/17 21:00 2.0 I&O- Last 24 Hours up to 6 AM 07/17/17 06:00 Intake Total 960 ml Balance 960 ml ROSAS DHILLON MD Jul 16, 2017 12:06
[2017-07-16 12:51] VITALS: BP 140/70
[2017-07-16] MEDS: hydroCHLOROthiazide 12.5 MG CAPSULE PO SCH (12:51)
[2017-07-16] MEDS ORDERED: WARFARIN SOD 7.5 MG TAB PO ONE (17:00)
[2017-07-16] MEDS ORDERED: WARFARIN SOD 5 MG TAB PO ONE (17:00)
[2017-07-16 21:00] VITALS: O2SAT 95
[2017-07-16 22:00] VITALS: BP 141/65
[2017-07-17] MEDS: PERCOCET 5MG/325MG TAB PO PRN ×2 (03:30→08:40)
[2017-07-17 06:00] VITALS: BP 143/62
[2017-07-17 07:11] LABS: BASO % 0.3 % (0.0-1.0); EOS # 0.1 10^3/uL (0.0-0.50); EOS % 0.7 % (0.0-3.0); IMMATURE GRANULOCYTE % 0.5 % (0-0); LYMPH # 1.6 10^3/uL (1.5-4.5); LYMPH % 14.9 % (24.0-44.0); MEAN CORPUSCULAR HEMOGLOBIN 27.9 pg (27.0-33.0); MEAN CORPUSCULAR HGB CONC 32.4 g/dl (32.0-36.5); MONO # 1.3 10^3/uL (0.0-0.8); MONO % 12.5 % (0.0-5.0); NEUTROPHILS # 7.5 10^3/uL (1.8-7.7); NEUTROPHILS % 71.1 % (36.0-66.0); PLATELET COUNT, AUTOMATED 161 10^3/uL (150-450); RED CELL DISTRIBUTION WIDTH 13.8 % (11.5-14.5); WHITE BLOOD COUNT 10.5 10^3/uL (4.0-10.0)
[2017-07-17 07:22] LABS: INR 1.59
[2017-07-17] MEDS: HumaLOG INSULIN (NovoLOG) PER UNIT SC SCH (07:30)
[2017-07-17 07:36] LABS: ALBUMIN/GLOBULIN RATIO 0.81 (1.00-1.93); ALKALINE PHOSPHATASE 65 U/L (45-117); ALT/SGPT 16 U/L (12-78); ANION GAP 7 MEQ/L (8-16); AST/SGOT 8 U/L (7-37); BILIRUBIN,TOTAL 0.7 MG/DL (0.2-1.0); BLOOD UREA NITROGEN 17 MG/DL (7-18); CALCIUM LEVEL 8.3 MG/DL (8.8-10.2); CARBON DIOXIDE LEVEL 30 MEQ/L (21-32); CHLORIDE LEVEL 99 MEQ/L (98-107); CREATININE FOR GFR 0.67 MG/DL (0.55-1.02); GLOMERULAR FILTRATION RATE > 60.0 (>39); GLUCOSE, FASTING 136 MG/DL (83-110); MAGNESIUM LEVEL 1.8 MG/DL (1.8-2.4); POTASSIUM SERUM 3.8 MEQ/L (3.5-5.1); SODIUM LEVEL 136 MEQ/L (136-145); TOTAL PROTEIN 6.7 GM/DL (6.4-8.2)
[2017-07-17] MEDS: SENOKOT S TAB PO SCH (08:39)
[2017-07-17] MEDS: hydroCHLOROthiazide 12.5 MG CAPSULE PO SCH (08:39)
[2017-07-17 08:40] VITALS: O2SAT 96
[2017-07-17] MEDS: MOM 30ML SUSPENSION UDC PO SCH (08:42)
[2017-07-17] MEDS: MIRALAX *UNIT DOSE* 17GM PACKET PO SCH (08:43)
[2017-07-17] MEDS ORDERED: dexameTHASONE 10 MG/1 ML VIAL PRES.FREE (J1100) ONE (09:54)
[2017-07-17] MEDS ORDERED: ROPIvacaine 0.5% 30 ML INJECTION (J2795 PER 1MG) ONE (09:54)
--- NOTE | 2017-07-17 12:41 | IPNPDOC ---
Text Note Date of Service The patient was seen on 07/17/17. NOTE Subjective: Patient is a 72-year-old female with a PMHx of Peripheral edema, Chronic venous stasis ulcers, Diastolic Dysfunction (No ECHO report), Impaired fasting glucose who presented to [facility] for an elective total right knee arthroplasty with Dr. Krzysztof Fischer. Patient was seen and examined at the bedside. Reports she is working with physical therapy without any issues; is tolerating the pain. No events overnight. Objective: Vitals (See below) General: Lying in bed, no acute distress, comfortable, AAOx3 HEENT: NC, AT CVS: RRR, +S1S2 Lungs: Fair air entry b/l, -w/r/r Abdomen: Soft, ND, NT Extremities: - Edema, - Calf tenderness Assessment and plan: Right knee pain, likely 2/2 osteoarthritis - s/p total right knee arthroplasty ( POD#1) - Presented for an elective procedure by Dr. Krzysztof Fischer - Pain management and anticoagulation as per primary team - c/w Physical therapy Peripheral edema with chronic venous stasis ulcers - No visible signs of fluid overload - c/w HCTZ today Diastolic Dysfunction - No ECHO report DM2 - A1c of 7.0; patient does meet criteria for diagnosis (A1c >=6.5) - c/w insulin sliding scale and before meals at bedtime glucose monitoring - Patient does not want to be started on medications; advised lifestyle modifications and follow up with PCP DVT prophylaxis - As per primary team Cindy LEI, I+O VSCindy, I+O Laboratory Tests 07/17/17 06:50 Red Blood Count 3.87 L, Mean Corpuscular Volume 86.0, Mean Corpuscular Hemoglobin 27.9, Mean Corpuscular Hemoglobin Concent 32.4, Red Cell Distribution Width 13.8, Neutrophils (%) (Auto) 71.1 H, Lymphocytes (%) (Auto) 14.9 L, Monocytes (%) (Auto) 12.5 H, Eosinophils (%) (Auto) 0.7, Basophils (%) ( Auto) 0.3, Neutrophils # (Auto) 7.5, Lymphocytes # (Auto) 1.6, Monocytes # (Auto ) 1.3 H, Eosinophils # (Auto) 0.1, Basophils # (Auto) 0.0 07/17/17 06:51 Calcium Level 8.3 L, Aspartate Amino Transf (AST/SGOT) 8, Alanine Aminotransferase (ALT/SGPT) 16, Alkaline Phosphatase 65, Total Bilirubin 0.7, Total Protein 6.7, Albumin 3.0 L Vital Signs Date Time Temp Pulse Resp B/P (MAP) Pulse Ox O2 Delivery O2 Flow Rate FiO2 07/17/17 09:40 16 Room Air 07/17/17 08:40 96 07/17/17 06:00 96.7 86 143/62 (89) 07/15/17 21:00 2.0 ROSAS DHILLON MD Jul 17, 2017 12:41
--- NOTE | 2017-07-21 19:12 | DSES ---
DATE OF ADMISSION: 07/15/2017 DATE OF DISCHARGE: 07/17/2017 ATTENDING PHYSICIAN: Dr. Jones ADMITTING DIAGNOSIS: Right knee degenerative arthritis. OTHER DIAGNOSES: Peripheral edema with venous stasis. Diastolic dysfunction. Impaired fasting glucose. DISCHARGE DIAGNOSES: Right knee degenerative arthritis status post right total knee arthroplasty. HISTORY: The patient is a 72-year-old female with progressively worsening right knee pain and stiffness. She failed to improve with conservative measures, so she consented for an elective right total knee arthroplasty with Dr. Jones. OPERATION PERFORMED: Right total knee arthroplasty. HOSPITAL COURSE: The patient underwent a right total knee arthroplasty under spinal anesthesia with right femoral nerve block. Surgery was uneventful and her hospital course was without complication. She was up with physical therapy per their protocol, weightbearing as tolerated on the right lower extremity. She was discharged on oral pain medications and will resume her preoperative medications and diet. She will take her Coumadin and use her thromboembolic deterrent stockings for 30 days postoperatively to prevent deep venous thrombosis. The patient will followup in our office in 12-14 days for wound check and staple removal. She was encouraged to contact our office sooner if there is any increased pain, redness, drainage, numbness or tingling in the extremity, fever greater than 101 degrees or any other concerns. Please see medical record for additional details.
== END 2017-07-17 11:48 | disposition home health service (06) | DRG 470 ==
LOC: M OR 07:27 → M MS5PR 13:50
PROVIDERS: ADMIT Orthopaedic Surgery; ATTEND Orthopaedic Surgery
PROC: 0SRC0J9 Replacement of Right Knee Joint with Synthetic Substitute, Cemented, Open Approach (ICD-10-PCS; principal; 2017-07-15 09:30)
DX: M17.11 Unilateral primary osteoarthritis, right knee (principal); I87.2 Venous insufficiency (chronic) (peripheral); R60.0 Localized edema; E11.9 Type 2 diabetes mellitus without complications; Z96.652 Presence of left artificial knee joint; Z87.891 Personal history of nicotine dependence; Z79.899 Other long term (current) drug therapy

== ENCOUNTER → 2017-07-21 | Outpatient (REF) | payer MEDICARE, OTHER ==
[~2017-07-21] MED LIST changes: -BUPIVACAINE HCL 0.25% 30 ML VIAL As Ordered ONE; -BUPIVACAINE LIPOSOME/PF 1.3% 20 ML VIAL (13.3MG/ML)(EXPAREL) As Ordered ONE; -EPINEPHrine INJ 1 MG/ML 1ML AMP As Ordered ONE; -TRANEXAMIC ACID 100 MG/ML 10ML VIAL As Ordered ONE; -ceFAZolin 1GM INJ (J0690 PER 500MG) As Ordered ONE
[2017-07-21 14:57] LABS: INR 1.81
== END ==
LOC: M SHH 14:30
PROVIDERS: ATTEND Nurse Practitioner Family
DX: Z79.01 Long term (current) use of anticoagulants (principal)

== ENCOUNTER → 2017-07-24 | Outpatient (REF) | payer MEDICARE, OTHER ==
[2017-07-24 14:33] LABS: INR 2.57
== END ==
LOC: M SHH 13:38
PROVIDERS: ATTEND Nurse Practitioner Family
DX: Z79.01 Long term (current) use of anticoagulants (principal)

== ENCOUNTER → 2017-07-28 | Outpatient (REF) | payer MEDICARE, OTHER ==
[2017-07-28 15:43] LABS: INR 1.51
== END ==
LOC: M SHH 15:14
PROVIDERS: ATTEND Nurse Practitioner Family
DX: Z79.01 Long term (current) use of anticoagulants (principal)

== ENCOUNTER → 2017-07-31 | Outpatient (REF) | payer MEDICARE, OTHER ==
[2017-07-31 14:06] LABS: INR 1.35
== END ==
LOC: M SHH 13:25
PROVIDERS: ATTEND Nurse Practitioner Family
DX: Z79.01 Long term (current) use of anticoagulants (principal)

== ENCOUNTER → 2017-08-05 | Outpatient (REF) | payer MEDICARE, OTHER ==
[2017-08-05 14:23] LABS: INR 1.6
== END ==
LOC: M SHH 13:42
PROVIDERS: ATTEND Nurse Practitioner Family
DX: Z79.01 Long term (current) use of anticoagulants (principal)

== ENCOUNTER → 2017-08-07 | Outpatient (REF) | payer MEDICARE, OTHER ==
[2017-08-07 13:53] LABS: INR 1.86
== END ==
LOC: M SHH 13:14
DX: Z79.01 Long term (current) use of anticoagulants (principal)
CPT/HCPCS: 85610

== ENCOUNTER → 2017-08-12 | Outpatient (REF) | payer MEDICARE, OTHER ==
[2017-08-12 13:11] LABS: INR 2.45; PROTHROMBIN TIME 27.6 SECONDS (12.4-14.5)
== END ==
LOC: M SHH 12:36
DX: Z51.81 Encounter for therapeutic drug level monitoring (principal); Z79.01 Long term (current) use of anticoagulants
CPT/HCPCS: 85610

== ENCOUNTER → 2018-08-06 | Outpatient (CLI) | payer MEDICARE, BC, OTHER ==
--- NOTE | 2018-08-06 17:36 | REP ---
Duplex extremity venous ultrasound: The right lower extremity. History: Rule out DVT. Localized swelling. The patient is status post greater saphenous vein ablation in 2014. Findings: The deep veins are anechoic and fully compressible from the groin to the popliteal fossa in the right lower extremity. Color flow imaging is homogeneous. Spectral Doppler interrogation demonstrates intact respiratory variation in flow and normal manual augmentation of flow. There is no evidence of deep vein thrombosis. Incidental note is made of a large necrotic appearing hyperemic lymph node in the right groin measuring 7.3 x 3.9 x 4.5 cm. There is also a second enlarged lymph node measuring 5.0 x 2.0 x 2.2 cm in the right groin. Impression: Negative right lower extremity duplex venous ultrasound. No evidence of deep vein thrombosis. There is a right inguinal lymphadenopathy with two rather large inguinal lymph nodes the largest of which measures 7.3 x 4.5 x 3.9 cm. Reactive adenopathy versus neoplastic adenopathy. Electronically Signed by Bonifacio Hernandez MD 08/06/2018 05:27 P
== END ==
LOC: M RAD 16:37
PROVIDERS: ATTEND Family Medicine
DX: R59.0 Localized enlarged lymph nodes (principal); R60.0 Localized edema

== ENCOUNTER 2018-09-18 08:18 | Day surgery (SDC) | payer MEDICARE, BC, OTHER ==
[~2018-09-18] VITALS: Ht 160 cm; Wt 106.1 kg
[~2018-09-18 08:18] MED LIST changes: +ALEV220T26 PO; +LR 1,000 ML IV ONE; +ceFAZolin SOD 1 GM in D5W MINI-BAG PLUS 50 ML IV ONE
[2018-09-18] MEDS ORDERED: BUPIVACAINE/EPIN 0.25% 30 ML VIAL As Ordered ONE ×2 (09:32→10:11)
[2018-09-18] MEDS ORDERED: ISOSULFAN BLUE(LYMPHAZURIN) 1% 50MG/5ML VIAL (Q9968) As Ordered ONE (09:33)
[2018-09-18] MEDS ORDERED: fentaNYL 100 MCG/2 ML INJECTION (J3010) As Ordered ONE ×2 (09:37→10:38)
[2018-09-18] MEDS ORDERED: MIDAZOLAM INJ 2 MG/2 ML VIAL (J2250) As Ordered ONE (09:37)
[2018-09-18] MEDS ORDERED: PROPOFOL 200 MG/20 ML VIAL As Ordered ONE ×2 (09:37→10:33)
[2018-09-18] MEDS ORDERED: ONDANSETRON 4MG/2ML VIAL (J2405) As Ordered ONE (09:37)
[2018-09-18] MEDS ORDERED: LIDOCAINE 2% INJ 100 MG/5 ML SDV (FOR ANES.) As Ordered ONE (09:37)
[2018-09-18] MEDS ORDERED: KETOROLAC 60 MG/2 ML VIAL (J1885) As Ordered ONE (10:20)
--- NOTE | 2018-09-18 11:19 | RO ---
DATE OF PROCEDURE: 09/18/2018 PREOPERATIVE DIAGNOSIS: Enlarged right groin lymph node. POSTOPERATIVE DIAGNOSIS: Enlarged right groin lymph node. PROCEDURE: Excision of right groin lymph node. SURGEON: Dk Rosas MD CORPORATE TRAINER: ANESTHESIA: IV sedation plus local. ESTIMATED BLOOD LOSS (EBL): 25 mL. FLUIDS: Crystalloid. BRIEF PROCEDURE SUMMARY: The patient was brought to the operating room, was given general anesthesia. After adequate anesthesia and preoperative antibiotics were given, the patient was prepped and draped in the usual sterile fashion. Next, a right groin incision was made with skin knife overlying the palpable enlarged lymph node in the right side. Lateral to this there was a deeper but smaller lymph node. Preoperatively, I felt that possibly removing the smaller lymph node may be a reasonable option. However, it felt much deeper and I was not able to move it as well as the medial larger lymph node and I felt that it was much more attached to underlying structures, i.e., possibly vascular structures underlying this area. In any case, at this point, the larger lymph node was exposed with electrocautery over the top of this and once the enlarged lymph node was evaluated it was obvious that I needed to increase the incision to adequately mobilize around this. There were some enlarged lymphatics, very thickened lymphatics going into the lymph node, which were clipped, multiple clips going around it staying on the lymph node itself circumferentially is what I then performed. However, there was some thickened fascia on the lateral side and I was concerned that this may actually be nerves attached to the lymph node itself. Carefully dissecting this off I got to the top of the lymph node where clips were placed across the attachments and cutting on the lymph node itself. Once this was transected, there was some minimal oozing from a small vessel that was clipped with medium clip. Prior to this, hemostasis was achieved with just minimal pressure. Orlando was left in the bed of the dissection given the amount of dissection performed. No evidence of lymphatic leak was appreciated. No bleeding was appreciated. The Orlando was white revealing no active bleeding issues. Then, the specimen sent to the pathology. The area was reevaluated. Revealed no active bleeding, no evidence of abnormality and the deep subcutaneous tissue was closed with #2-0 Vicryl. #3-0 Vicryl was used to close the superficial subcutaneous tissue and running #4-0 Vicryl was used to approximate the skin. Steri-Strips and a dry sterile dressing was applied. The patient was awakened from her sedation, brought to the recovery room awake, alert and hemodynamically stable. Sponge and needle counts correct times two.
[2018-09-18 11:40] VITALS: BP 122/59
[2018-09-18] MEDS ORDERED: ONDANSETRON 4MG/2ML VIAL (J2405) IV PRN ×2 (11:45)
[2018-09-18] MEDS ORDERED: LR 1,000 ML IV SCH ×2 (11:45)
[2018-09-18] MEDS ORDERED: fentaNYL 100 MCG/2 ML INJECTION (J3010) IV PRN (11:45)
[2018-09-18] MEDS ORDERED: PERCOCET 5MG/325MG TAB PO PRN (11:45)
[2018-09-18] MEDS ORDERED: NORCO, ANEXSIA 5/325MG TABLET (HYDROcodone/ACETAMINOPHEN) PO PRN (11:45)
== END 2018-09-18 11:56 | disposition home or self-care (01) ==
LOC: M SDC 08:18
PROVIDERS: ATTEND Surgery
DX: C82.55 Diffuse follicle center lymphoma, lymph nodes of inguinal region and lower limb (principal); I48.91 Unspecified atrial fibrillation; I10 Essential (primary) hypertension; K21.9 Gastro-esophageal reflux disease without esophagitis; Z86.718 Personal history of other venous thrombosis and embolism; Z88.2 Allergy status to sulfonamides; Z79.899 Other long term (current) drug therapy; Z87.891 Personal history of nicotine dependence
CPT/HCPCS: 38500; 88305; J0690; J1885; J2250; J2405; J3010

== ENCOUNTER → 2018-09-29 | Outpatient (CLI) | payer MEDICARE, BC, OTHER ==
[~2018-09-29] MED LIST changes: +ACYC200C8 PO; +DAPS25TA PO; +ENOX40IN3 SC; +HYDR12CA PO; -LR 1,000 ML IV ONE; +ONDA8TAB8 PO; +PROC10TA4 PO; +VITA10002 PO; +ZYLO300T6 PO; -ceFAZolin SOD 1 GM in D5W MINI-BAG PLUS 50 ML IV ONE
--- NOTE | 2018-09-30 18:08 | RADONC ---
RADIATION ONCOLOGY NEW PATIENT CONSULTATION DATE OF CONSULTATION: 09/29/2018 REFERRING PHYSICIAN: Dr. Shaikh CHART NUMBER: [id number]. 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 STAGE: Clinical IIA. (Staging is underway but not yet entirely complete.) ECOG PERFORMANCE STATUS: 0. ICD-10 CODE: C77.5. HISTORY OF THE PRESENT ILLNESS: The patient is 73 years old and is referred by Dr. Shaikh for evaluation of a fairly large pelvic mass, which has been histopathologically diagnosed as a follicular lymphoma. She has significant swelling of her right lower extremity. Her staging is now being performed. Her history began shortly after she had a knee replacement on the right. Approximately 2 months ago, she developed swelling of her right lower extremity. The swelling was fairly slow and evolving, and the patient saw her primary care physician. A CT scan was obtained of the abdomen and pelvis, which revealed a large soft tissue mass in the right pelvis representing bulky lymphadenopathy. There was right inguinal lymphadenopathy, as well as a dominant soft tissue mass in the most inferior image portion of the right inguinal region. There was a mildly enlarged left inguinal lymph node, as well. The necrotic mass measured 7.3 x 3.9 x 4.5 cm with a second lymph node also measuring 5.0 x 2.0 x 2.2 cm in the right groin. Dr. 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 The patient saw Dr. Shaikh, who reviewed her situation and felt that she might benefit initially from local regional radiotherapy because of her rapidly swelling right lower extremity but that eventually chemotherapy would be her mainstay of treatment. She is yet to undergo a PET scan, which incidentally is scheduled for 10/06/2018 and perhaps a bone marrow biopsy and comes today to discuss the logistics of external beam radiotherapy. 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 The left was replaced approximately 1 year before the right knee, which may have been in July of 2017. She has also had bilateral cataractectomies and bilateral tubal ligation in 1976. She has had dental extractions. SOCIAL HISTORY She is with two children. WORK HISTORY: She has worked at [employer] for many years. FAMILY HISTORY: Of cancer. She has a grandmother and an uncle with mesothelioma. ALLERGIES: SULFAMETHOXAZOLE TRIMETHOPRIM CURRENT MEDICATIONS: - hydrochlorothiazide 12.5 mg - Aleve - allopurinol - vitamin B12 REVIEW OF SYSTEMS Head and neck. She denies any visual disturbances, nausea, vomiting, headaches, difficulty with speech, swallowing, or throat or mouth pain. She is edentulous. Neck: Denies any lymphadenopathy in the head and neck area. Lungs: Has no difficulty breathing, coughing, sputum production, or hemoptysis. Heart: Denies any rhythmic irregularities or previous heart murmurs or coronary artery disease that she is aware of. Abdomen: No evidence of intra-abdominal pain or difficulty with BMs. Pelvic area: She has not a great deal of pelvic pain but does have swelling in the pubic area, along with swelling of her right lower extremity, which is somewhat uncomfortable and certainly interferes with her ambulation. Neurological review of systems reveals no focal motor or neurologic history, seizures, headaches, or decrease in strength. EXAMINATION FINDINGS: BP 140/70, temperature 98, pulse 66, respirations 20, height feet 2-1/2 inches, weight 234, O2 saturation 98% on room air. HEENT: Normocephalic. EOMs intact. PERRLA. Fundi benign. Lymphatics: No palpable peripheral lymphadenopathy is appreciated. There is a right inguinal scar and some induration is located where the previous inguinal lymph node was surgically excised. Some fullness can be palpated in the lower pelvic region. The right lower extremity is grossly edematous. There is no hepatomegaly or deep abdominal tenderness. Neurological examination: Limited because of her right-sided lower extremity edema. Otherwise nonfocal. IMPRESSION: Most likely follicular lymphoma with involvement of the right pelvis and right inguinal lymph node, which has been surgically excised and shown to be consistent at this point with a follicular lymphoma. She has a PET scan to follow on 10/06/2018 and a bone marrow to follow, as well as other studies as per Dr. Shaikh. PLAN OF RADIOTHERAPY: Dr. Shaikh has referred this patient for evaluation of local regional radiotherapy because she has a significant amount of swelling which is bothersome to the patient located in the right lower extremity. I believe it is certainly reasonable to administer radiotherapy at this time to the right-sided pelvic mass to control the pressure this mass is placing upon her venous structures within the pelvis, such as the femoral vein. Hopefully, this will decrease the propensity to cause right lower extremity swelling and potential blood clots. We are planning a course of approximately 4000 cGy and reevaluate as to the overall response and tolerance. Prior to treatment delivery, localization will be accomplished upon our CT simulator and treatment portals defined by the use of multiple leaf collimators. We may utilize IMRT as our primary technique of radiotherapy delivery in order to minimize exposure of normal structures to radiotherapy and thereby minimize potential side effects. This becomes especially important in this particular case, as the patient will be receiving chemotherapy in the future. The indications, possible side effects, and alternatives to radiotherapy have been explained in detail to the patient. She understands and is willing to proceed as outlined. Thank you for allowing us the opportunity of participation in the management of this very rudi lady. cc: MD Chato Box MD
== END ==
LOC: M ONCR 10:31
PROVIDERS: ATTEND Radiology Radiation Oncology
DX: C82.96 Follicular lymphoma, unspecified, intrapelvic lymph nodes (principal)

== ENCOUNTER 2018-09-30 11:18 | Outpatient (RCR) | payer MEDICARE, BC, OTHER ==
[~2018-09-30 11:18] MED LIST changes: -ACYC200C8 PO; -DAPS25TA PO; -ENOX40IN3 SC; -ONDA8TAB8 PO; -PROC10TA4 PO; -VITA10002 PO
[2018-10-09] MEDS ORDERED: VITA10002 PO (13:08)
[2018-10-09] MEDS ORDERED: ENOX40IN3 SC (19:45)
[2018-10-15] MEDS ORDERED: ACYC200C8 PO (11:30)
[2018-10-15] MEDS ORDERED: ONDA8TAB8 PO (11:30)
[2018-10-15] MEDS ORDERED: PROC10TA4 PO (11:30)
[2018-10-15] MEDS ORDERED: DAPS25TA PO (12:02)
[2018-10-22] MEDS ORDERED: KLOR20TA42 PO (15:43)
== END 2018-10-08 ==
LOC: M ONCR 11:18
PROVIDERS: ATTEND Radiology Radiation Oncology
DX: C77.5 Secondary and unspecified malignant neoplasm of intrapelvic lymph nodes (principal)

== ENCOUNTER → 2018-10-06 | Outpatient (CLI) | payer MEDICARE, BC, OTHER ==
[~2018-10-06] MED LIST changes: +ENOX40IN3 SC; +VITA10002 PO
--- NOTE | 2018-10-06 16:56 | REP ---
PET/CT: History: Staging follicular lymphoma. Right pelvic and inguinal adenopathy. Status post excisional lymph node biopsy right groin September 18, 2018. Comparisons: Comparison CT study abdomen and pelvis September 01, 2018 from [facility]. TECHNIQUE: 72 minutes following the intravenous injection of a 8.0 mCi dose of F-18 FDG, three-dimensional PET scintigraphy is acquired from the skull base to the proximal thighs. Triplanar noncontrast CT scanning is acquired through the same anatomic range for attenuation correction, and image registration with scan parameters optimized to minimize radiation exposure to the patient. PET scintigraphy and CT datasets were fused and displayed on a workstation with multiplanar and projection display capability. PET/CT Findings: There are postoperative changes in the right inguinal and proximal thighs soft tissues anteriorly including multi locular fluid collection consistent with seroma, hematoma, or lymphocele. In the aggregate, this measures up to 12 cm in transverse dimension. There is some mildly hypermetabolic uptake along the medial aspect of this which may be postsurgical. Above the surgical site, there is hypermetabolic gordon uptake in a small lymph node in the right inguinal soft tissues anteriorly. Maximum standard uptake value 8.98. The large confluent gordon mass in the right pelvic sidewall and external iliac lymph node chain is hypermetabolic as well with maximum standard uptake value 11.9. There is a second small right inguinal lymph node with maximum standard uptake value of 4.5. Right common iliac artery hypermetabolic adenopathy is seen maximum standard uptake value 6.9. Above the diaphragm there are is a small mildly hypermetabolic epicardial lymph node with maximum standard uptake value 2.3. There is a larger right anterior mediastinal focus consistent with an epicardial gordon focus with maximum standard uptake value of 8.4. There is hypermetabolic subcarinal adenopathy with maximum standard uptake value 8.1. There is right hilar hypermetabolic adenopathy maximum standard uptake value 7.25. There is a right internal mammary hypermetabolic adenopathy with maximum standard uptake value 7.05. There is right superior mediastinal adenopathy and a small node with maximum standard uptake value 7.63. There are small single subclavicular lymph nodes which are hypermetabolic, on the left 4.5 and on the right 3.5 in maximum standard uptake value. Lastly in the neck there is an intraparotid lymph node on the right which is hypermetabolic. This has maximum standard uptake value 8.71. The spleen is not enlarged. No other abnormal hypermetabolic uptake is seen. Impression: Multiple gordon foci of hypermetabolic uptake in the inguinal, pelvic, retroperitoneal, epicardial, internal mammary, right hilar and subcarinal and superior mediastinal, bilateral sub- clavicular, and right intraparotid lymph node locations. Electronically Signed by Bonifacio Hernandez MD 10/06/2018 07:30 P
== END ==
LOC: M PLARAD 12:33
PROVIDERS: ATTEND Internal Medicine Hematology & Oncology
DX: C82.95 Follicular lymphoma, unspecified, lymph nodes of inguinal region and lower limb (principal)
CPT/HCPCS: 78815; A9552

== ENCOUNTER → 2018-10-12 | Outpatient (CLI) | payer MEDICARE, BC, OTHER ==
[~2018-10-12] MED LIST changes: +ACYC200C8 PO; +DAPS25TA PO; +ISOVUE-300 61% 50ML VIAL (Q9967) As Ordered ONE; +KLOR20TA42 PO; +LIDOCAINE 2% MDV 20 ML VIAL As Ordered ONE; +MAGO400T PO; +MAGO400T2 PO; +MIDAZOLAM INJ 2 MG/2 ML VIAL (J2250) As Ordered ONE; +ONDA8TAB8 PO; +PROC10TA4 PO; +SLOW160T8 PO; +VITA500C24 PO; +ceFAZolin 1GM INJ (J0690 PER 500MG) As Ordered ONE; +fentaNYL 100 MCG/2 ML INJECTION (J3010) As Ordered ONE
--- NOTE | 2018-11-11 07:08 | REPIR ---
DATE OF PROCEDURE: 10/12/2018 ATTENDING PHYSICIAN: Dr. Janusz Munoz LABORER [employer]ING: Elif Stone and Crystal Garza PREOPERATIVE DIAGNOSES: Follicular lymphoma. Pulmonary mass. Right lower extremity swelling. Right groin lymphadenopathy. POSTOPERATIVE DIAGNOSES: Follicular lymphoma. Pulmonary mass. Right lower extremity swelling. Right groin lymphadenopathy. PROCEDURE: Ultrasound-guided right internal jugular vein cannulation. Fluoroscopic guided right internal jugular vein 27 cm tunneled central venous catheter with subcutaneous port placement using a PowerPort. INDICATION: Patient is a 73-year-old female with follicular lymphoma who requires access for chemotherapy and blood draws and will undergo placement of a tunneled central venous catheter with subcutaneous port. Risks, benefits and alternative treatment options were discussed with the patient. ANESTHESIA: Local sedation with 2 mg Versed, 100 mcg of fentanyl and 20 mL of 2% lidocaine. FLUORO TIME: 0.1 minutes. CONTRAST: None. COMPLICATIONS: None. DRAINS: None. SPECIMENS: None. IMPLANTS: Tunneled central venous catheter with subcutaneous port using a Bard PowerPort with 23 cm length catheter. SEDATION TIME: Was from 8:37 a.m. to 8:59 a.m. for a total of 22 minutes. Sedation with and cardiopulmonary monitoring was performed under my direct supervision and I was present for and directed the entire case. PROCEDURE: The patient was taken to the angiography suite, placed supine on the angiography room table and prepped and draped in a standard surgical fashion. The right internal jugular vein was cannulated using ultrasound guidance with real-time concurrent visualization of the entry of the needle into the right internal jugular vein using a micropuncture needle after anesthetizing overlying skin with 2% lidocaine. A micropuncture wire was advanced through the micropuncture needle which was upsized to a micropuncture sheath. A wire was advanced through the micropuncture sheath which was upsized to an introducer sheath. An incision was made in the chest after anesthetizing the overlying skin with 2% lidocaine. The port was placed in a pocket which was created bluntly. The catheter was attached to the port, tunneled subcutaneously and then advanced through the introducer sheath. The introducer sheath was removed. The port was aspirated and noted to aspirate easily and then flushed with heparinized saline. The incisions in the chest and the right neck were closed using #3-0 Monocryl in an inverted interrupted fashion. Steri-Strips and dressings were applied. The patient tolerated the procedure well. All instrument, sponge and needle counts were correct at the end of the case. There were no complications. Dr. Munoz was present for and directed the entire case. The patient was transferred to holding area and subsequently discharged in stable condition. The tunneled central venous catheter with subcutaneous port was stable for use for access. RADIOLOGIC SUPERVISION INTERPRETATION: The ultrasound showed the right internal jugular vein to be widely patent, easily compressible and free of thrombus and ultrasound was used guide cannulation with real-time concurrent visualization of the entry of the needle into the right internal jugular vein with a hard copy image preserved. Fluoroscopy was used to guide dilatation of the right internal jugular vein with placement of the introducer sheath in the right internal jugular vein with the tip in the superior vena cava/right atrial junction. Final fluoroscopic image showed the catheter be in stable position with the tip in the superior vena cava/right atrial junction with no pneumothorax or hemothorax noted.
== END | disposition home or self-care (01) ==
LOC: M IRPRO 07:04
PROVIDERS: ATTEND Internal Medicine Hematology & Oncology
DX: C82.90 Follicular lymphoma, unspecified, unspecified site (principal); R91.8 Other nonspecific abnormal finding of lung field
CPT/HCPCS: 36561; 76937; 77001; 99152; C1788; C1894; J0690; J2250; J3010; Q9967

== ENCOUNTER → 2019-02-09 | Outpatient (CLI) | payer MEDICARE, BC, OTHER ==
[~2019-02-09] MED LIST changes: +CYAN100049 PO; +DAPS25TA2 PO; -ISOVUE-300 61% 50ML VIAL (Q9967) As Ordered ONE; -LIDOCAINE 2% MDV 20 ML VIAL As Ordered ONE; +MAGN400T PO; -MIDAZOLAM INJ 2 MG/2 ML VIAL (J2250) As Ordered ONE; +POTA1TAB14 PO; -VITA10002 PO; -ceFAZolin 1GM INJ (J0690 PER 500MG) As Ordered ONE; -fentaNYL 100 MCG/2 ML INJECTION (J3010) As Ordered ONE
--- NOTE | 2019-02-10 15:16 | REP ---
HISTORY: Non-Hodgkin lymphoma. COMPARISON: Prior PET/CT 10/06/2018 reviewed. After the intravenous administration of 8.04 mCi of FDG-18, triplane whole body PET/CT was performed from the skull base to the mid thigh. There is a focus of abnormal hypermetabolic activity seen in the right neck in a retromandibular location bordering the right parapharyngeal space and the parotid space. This has SUV values of 3.3. The marked right hemipelvic sidewall hypermetabolic lymphadenopathy seen on the prior examination has markedly improved. Lymphadenopathy persists, however, there is only one focal area of hypermetabolic activity seen with SUV values of 3.05, all other hypermetabolic activity has abated. The patient has undergone right inguinal lymph node biopsy and the CT component of today's examination shows surgical clips in the region with a persistent oval shaped 4.5 cm size cystic structure, possibly a postoperative seroma. This is not hypermetabolic. There is an additional 3.7 cm sized low density mass in the inner right thigh which is also nonhypermetabolic. This area was not imaged on prior CT scans, however, this area was present on the prior PET/CT and has decreased in size. IMPRESSION: Significant and rather marked improvement in findings as described above. Continued surveillance is recommended. Electronically Signed by Kristian Martines DO 02/10/2019 03:43 P
== END ==
LOC: M PLARAD 14:16
PROVIDERS: ATTEND Internal Medicine Hematology & Oncology
DX: C82.2 Follicular lymphoma grade III, unspecified (principal)
CPT/HCPCS: 78815; A9552

== ENCOUNTER → 2019-03-16 | Outpatient (CLI) | payer MEDICARE, BC, OTHER ==
[~2019-03-16] MED LIST changes: +DAPS10TA PO; +LEVA1TAB2 PO; +MAGN400T2 PO; +POTA20TA6 PO
--- NOTE | 2019-03-17 04:40 | REP ---
CHEST, TWO VIEWS: HISTORY: Pneumonia. COMPARISON: 03/09/2019 A minimal increase in interstitial markings is present in the lungs, consistent with chronic interstitial change. The heart is normal in size. The pulmonary vasculature is normal in appearance. The bony structure is intact. An Infusaport catheter is present. IMPRESSION: Chronic interstitial change. Electronically Signed by Shaun Khoury MD 03/17/2019 08:19 A
== END ==
LOC: M RAD 08:52
PROVIDERS: ATTEND Internal Medicine
DX: R91.8 Other nonspecific abnormal finding of lung field (principal); Z87.01 Personal history of pneumonia (recurrent)

== ENCOUNTER → 2019-03-23 | Outpatient (CLI) | payer MEDICARE, BC, OTHER ==
[~2019-03-23] MED LIST changes: -MAGN400T PO; +MAGN400T3 PO
--- NOTE | 2019-03-24 10:10 | REP ---
PET/CT: HISTORY: Staging follicular lymphoma. COMPARISONS: Comparison PET-CT studies are from February 09, 2019 and October 06, 2018. TECHNIQUE: 52 minutes following the intravenous injection of a 9.21 mCi dose of F-18 FDG, three-dimensional PET scintigraphy is acquired from the skull base to the proximal thighs. Triplanar noncontrast CT scanning is acquired through the same anatomic range for attenuation correction, and image registration with scan parameters optimized to minimize radiation exposure to the patient. PET scintigraphy and CT datasets were fused and displayed on a workstation with multiplanar and projection display capability. PET/CT FINDINGS: Hypermetabolic uptake persists in a small intraparotid gordon focus on the right with maximum standard uptake value 9.29. This intraparotid soft tissue nodule or lymph node measures 13 mm in greatest diameter. Previous maximum SUV value is 8.71 on October 06, 2018. On February 09, 2019, this focus was also present and maximum standard uptake value 7.92. It is felt to be unchanged in size and avidity. No other abnormal hypermetabolic uptake is currently visible in the head and neck region. There is a right-sided [id number] catheter. No abnormal hypermetabolic uptake is appreciated within the chest. There is a diffuse marrow stimulation pattern consistent with chemotherapy effect. There is no abnormal hypermetabolic uptake in the abdomen or pelvis. No abnormal hypermetabolic uptake is seen in either inguinal region. Previously noted hematoma seroma changes in the right groin and proximal thigh are again seen decreased in size since the original PET-CT study of September 2018. IMPRESSION: Persistent hypermetabolic uptake in an intraparotid lymph node in the right neck, unchanged from most recent prior PET-CT study. Diffuse chemo stimulation pattern in the marrow throughout the axial skeleton. Otherwise negative PET scintigraphy. Electronically Signed by Bonifacio Hernandez MD 03/24/2019 08:53 P
== END ==
LOC: M PLARAD 14:16
PROVIDERS: ATTEND Internal Medicine
DX: C82.95 Follicular lymphoma, unspecified, lymph nodes of inguinal region and lower limb (principal)
CPT/HCPCS: 78815; A9552

== ENCOUNTER → 2019-04-08 | Outpatient (CLI) | payer MEDICARE, BC, OTHER ==
[~2019-04-08] MED LIST changes: +MAGN400T PO; -MAGN400T3 PO
--- NOTE | 2019-04-10 08:25 | RADONC ---
RADIATION ONCOLOGY CONSULTATION NOTE DATE: 04/08/2019 CHART #: [id number] DIAGNOSIS: Follicular lymphoma. STAGE: III A. ECOG PERFORMANCE STATUS: 0. CONSULTATION NOTE: Ms. Davis is a very pleasant 74-year-old white female with the diagnosis of a grade 1 to 2 follicular lymphoma who has completed a course of systemic therapy with six cycles of Bendamustine and Rituximab. Following completion of therapy, a repeat PET scan was done on 03/23/2019 which revealed residual hypermetabolic uptake in the right intraparotid lymph node. The PET scan was otherwise negative for malignancy. The patient is now presenting for discussion of external beam radiation therapy to her residual site of disease. REVIEW OF SYSTEMS: The patient's review of systems is noncontributory. Denies nausea, vomiting, fevers, chills, night sweats, diplopia, headaches, anxiety or depression, anorexia, weight loss, visual disturbances, chest pain, urinary or bowel difficulties, bone pain, or neurological problems. PHYSICAL EXAMINATION: The patient is a well-developed, well-nourished, 74-year-old female in no acute distress. HEENT exam is normocephalic, atraumatic. Extraocular movements are intact. There is no palpable cervical, supraclavicular, infraclavicular, axillary, or inguinal lymphadenopathy present. Lungs are clear to auscultation and percussion. Heart has a regular rate and rhythm. Abdomen is benign with no hepatosplenomegaly, masses, or tenderness. Skeletal examination reveals no tenderness to pressure or percussion of the bony skeleton. Extremities reveal no clubbing, cyanosis, or edema. Neurologic exam is grossly intact, as is the remainder of the physical examination. ASSESSMENT: Clearly, the patient is a candidate for external beam radiation therapy and I have so informed her. I have discussed with the patient in detail the logistics of treatment planning, simulation and subsequent fractionated daily radiation treatment. I have scheduled the patient for the next available simulation slot and radiation treatments will begin subsequently. Thank you for allowing us to participate in the care of this very pleasant woman. If I could be of any further assistance or provide you with any information, please feel free to contact me at anytime. As always warm regards. cc: MD Pan Askew MD
== END ==
LOC: M ONCR 13:00
PROVIDERS: ATTEND Radiology Radiation Oncology
DX: C85.80 Other specified types of non-Hodgkin lymphoma, unspecified site (principal)

== ENCOUNTER 2019-04-15 13:42 | Outpatient (RCR) | payer MEDICARE, BC, OTHER ==
--- NOTE | 2019-04-15 22:45 | RADONC ---
RADIATION ONCOLOGY SIMULATION NOTE DATE: 04/15/2019. CHART NUMBER: [id number] Mrs. Davis with a diagnosis of a follicular lymphoma involving the lymph nodes of the head, face and neck, stage IIIA, was simulated today. She was placed in a supine position and an immobilization device was constructed to immobilize the patient for accurate day-to-day set up during her treatments. She tolerated the immobilization device construction quite well, and she was then scanned at [address] simulator. The images were captured and will be utilized to contour both planned treatment volume and surrounding structures which we wish to avoid utilizing IMRT/IGRT. I was present during the entire time of the simulation. She tolerated the entire process quite well with no significant untoward side effects. She will have contours of involved structures and immediate surrounding structures, and these contours will be utilized for the treatment planning process. She was discharged to her home in excellent condition awaiting our treatment plan.
== END 2019-05-10 ==
LOC: M ONCR 13:42
PROVIDERS: ATTEND Radiology Radiation Oncology
DX: C82.91 Follicular lymphoma, unspecified, lymph nodes of head, face, and neck (principal)

== ENCOUNTER → 2019-05-04 | Outpatient (CLI) | payer MEDICARE, BC, OTHER ==
[~2019-05-04] MED LIST changes: +LIDOCAINE 1% MDV 20ML VIAL As Ordered ONE
[2019-05-04 11:08] VITALS: BP 175/90
--- NOTE | 2019-05-04 16:04 | REP ---
Ultrasound-guided right parotid biopsy This procedure was performed by CHELSIE Alberto, under the direct supervision of Dr. Lowery. The patient has a history of persistent hypermetabolic intraparotid lymph node in the right neck on a PET CT dated 03/23/2019. The risks and the benefits of the procedure were explained to the patient and informed consent was obtained both verbally and written. Directly prior to the start of the procedure, a formal time out was completed in the procedure room. The right parotid lymph node was localized using ultrasound guidance. The skin was prepped and draped in a sterile fashion. 7 ml of 1% lidocaine was used as a local anesthetic. Using ultrasound guidance 8 fine-needle aspirations were obtained using 22 gauge needles of the right parotid lymph node. The patient tolerated the procedure well and there were no immediate complications. After the appropriate amount of monitored convalescence the patient was discharged from the department. Reviewed by CHELSIE Alberto 05/04/2019 12:33 P Electronically Signed by Grant Lowery MD 05/04/2019 03:56 P
== END ==
LOC: M IRPRO 09:11
PROVIDERS: ATTEND Internal Medicine Hematology & Oncology
DX: C82.90 Follicular lymphoma, unspecified, unspecified site (principal); K11.8 Other diseases of salivary glands

== ENCOUNTER 2019-06-02 14:04 | Outpatient (RCR) | payer MEDICARE, BC, OTHER ==
--- NOTE | 2019-05-18 12:05 | RADONC ---
RADIATION ONCOLOGY PROGRESS NOTE DATE: 05/17/2019 CHART #: [id number] Ms. Davis is presently at a dose of 600 cGy to her right parotid and is tolerating treatments quite well with no complaints related to her radiation therapy. She is having no difficulty swallowing at this point. She is complaining of a low grade fever and cough which is productive of sputum. She reports that she has had bronchitis on multiple occasions in the past and has an appointment to be seen by Dr. Rodriguez right after this visit. REVIEW OF SYSTEMS: The patient's review of systems is positive for productive cough and low grade fever, but is otherwise noncontributory. Denies nausea, vomiting, fevers, chills, night sweats, diplopia, headaches, anxiety or depression, anorexia, weight loss, visual disturbances, chest pain, urinary or bowel difficulties, bone pain, or neurological problems. PHYSICAL EXAMINATION: The patient's skin is in excellent condition with no evidence of radiation change present. There is no moist or dry desquamation. The remainder of her physical exam remains unchanged. Ms. Davis is tolerating treatments quite well and radiation will continue as scheduled.
--- NOTE | 2019-05-24 15:30 | RADONC ---
RADIATION ONCOLOGY PROGRESS NOTE DATE: 05/24/2019 CHART NUMBER: [id number] PROGRESS NOTE: Ms. Davis is presently at a dose of 1600 cGy to her right parotid gland and is tolerating treatments quite well at this point with no complaints related to her radiation therapy. She is having no skin or cheek pain. REVIEW OF SYSTEMS: The patient's review of systems is noncontributory. Denies nausea, vomiting, fevers, chills, night sweats, diplopia, headaches, anxiety or depression, anorexia, weight loss, visual disturbances, chest pain, urinary or bowel difficulties, bone pain, or neurological problems. PHYSICAL EXAMINATION: The patient's skin is in excellent condition with no evidence of radiation change present. There is no moist or dry desquamation. There is no evidence of mucositis present in the oral cavity. The remainder of her physical exam remains unchanged. Ms. Davis is tolerating treatments quite well and radiation will continue as scheduled.
--- NOTE | 2019-06-01 09:13 | RADONC ---
RADIATION ONCOLOGY PROGRESS NOTE DATE: 05/31/2019 CHART #: [id number] Birdie Davis with a diagnosis of follicular lymphoma, unspecified, lymph nodes involving the face, head and neck is currently undergoing radiotherapy. She is experiencing some irritation in the internal right buccal mucosa. REVIEW OF SYSTEMS: As stated, pain upon swallowing located in the right buccal mucosa. She has been using some Cepacol lozenges for this pain and I have instructed her to stop using this product as some Cepacol products have alcohol and phenol and it would be probably more beneficial to use a swish and swallow with Xylocaine viscous. We also instructed her to start eating fairly bland foods and fluids with a soft texture. Otherwise, she has no real complaints and no skin irritation. She denies any nausea, vomiting, coughing, sputum production or hemoptysis. EXAMINATION FINDINGS: The skin within the irradiated volume looks normal. There is no palpable peripheral lymphadenopathy. Lungs are clear. Heart regular. Abdomen negative. IMPRESSION: Tolerating therapy well. PLAN: Treatments to continue. MTDD
[~2019-06-02 14:04] MED LIST changes: -LIDOCAINE 1% MDV 20ML VIAL As Ordered ONE; -MAGN400T PO; +MAGN400T3 PO
--- NOTE | 2019-06-05 08:12 | RADONC ---
RADIATION ONCOLOGY TREATMENT SUMMARY DATE OF SERVICE: 06/04/2019 CHART NUMBER [id number] DIAGNOSIS: Follicular lymphoma. STAGE III A. ECOG performance status zero. PLAN OF RADIOTHERAPY: Local regional radiotherapy following systemic therapy for consolidation. DATE RADIOTHERAPY STARTED: 05/13/2019 DATE RADIOTHERAPY COMPLETED: 06/02/2019 DOSE: The patient received a total of 3000 cGy administered in 15 fractions over 20 elapsed days. Prior to treatment delivery, localization was accomplished upon our CT simulator and treatment portals were defined by the use of multiple leaf collimators. A 6MV photon beam was employed for treatment delivery via IMRT/IGRT. Again prior to treatment delivery, localization was accomplished upon our CT simulator and treatment portals defined by the use of multiple leaf collimators. STATUS OF TUMOR: There was no more palpable tumor at the conclusion of her external beam radiotherapy. No new areas of suspicious physical abnormalities were noted to suggest further distant metastatic spread of the tumor. TOLERANCE: In general, treatments were well tolerated, although she did experience some minimal bit of discomfort within the buccal mucosa but no significant mucositis. DISPOSITION: Return to clinic in approximately 1 month or p.r.n. and she was instructed to return to her referring physicians as per their directions and instructions. Thank you for allowing us the opportunity of participation in the management of this very rudi lady. Most sincerely, cc: MD Pan Askew MD
== END 2019-06-10 ==
LOC: M ONCR 14:04
PROVIDERS: ATTEND Radiology Radiation Oncology
DX: C77.5 Secondary and unspecified malignant neoplasm of intrapelvic lymph nodes (principal)

== ENCOUNTER → 2019-06-30 | Outpatient (CLI) | payer MEDICARE, BC, OTHER ==
--- NOTE | 2019-07-02 13:10 | RADONC ---
RADIATION ONCOLOGY FOLLOWUP NOTE DATE: 06/30/2019 CHART NUMBER: [id number] DIAGNOSIS: Follicular lymphoma. STAGE: III A. ECOG PERFORMANCE STATUS: 0 FOLLOWUP NOTE: Ms. Davis is a very pleasant 74-year-old white female with the diagnosis of a grade 1-2 follicular lymphoma who is presenting to us today for routine followup visit 1 month post completion of external beam radiation therapy to her head and neck region. The patient presents today reporting that she is doing quite well with no complaints at this time related to her radiation therapy or disease. She has no pain or discomfort. REVIEW OF SYSTEMS: The patient's review of systems is noncontributory. Denies nausea, vomiting, fevers, chills, night sweats, diplopia, headaches, anxiety or depression, anorexia, weight loss, visual disturbances, chest pain, urinary or bowel difficulties, bone pain, or neurological problems. PHYSICAL EXAMINATION: The patient is a well-developed, well-nourished 74-year-old white female in no acute distress. HEENT exam is normocephalic, atraumatic. Extraocular movements are intact. There is no palpable cervical, supraclavicular, infraclavicular, axillary, or inguinal lymphadenopathy present. Lungs are clear to auscultation and percussion. Heart has a regular rate and rhythm. Abdomen is benign with no hepatosplenomegaly, masses, or tenderness. Skeletal examination reveals no tenderness to pressure or percussion of the bony skeleton. Extremities reveal no clubbing, cyanosis, or edema. Neurologic exam is grossly intact, as is the remainder of the physical examination. ASSESSMENT: The patient is clinically ALVARO at this time. She is continuing her close followup and management with her medical oncologist doctor Swapnil Rangel MD and therefore is being discharged from my followup except on a p.r.n. basis. cc: MD Swapnil Box MD
== END ==
LOC: M ONCR 13:53
PROVIDERS: ATTEND Radiology Radiation Oncology
DX: C77.5 Secondary and unspecified malignant neoplasm of intrapelvic lymph nodes (principal)

== ENCOUNTER → 2019-08-31 | Outpatient (CLI) | payer MEDICARE, BC, OTHER ==
--- NOTE | 2019-09-01 08:55 | REP ---
PET/CT: History: Restaging follicular lymphoma of the lower limb. Right groin lymph node. The patient status post radiation therapy to the head and neck for a right parotid gland lesion Comparisons: Comparison is made with prior PET/CTs the most recent which is from March 23, 2019. February 09, 2019 and October 06, 2018 prior PET/CTs are also reviewed. TECHNIQUE: 64 minutes following the intravenous injection of a 8.45 mCi dose of F-18 FDG, three-dimensional PET scintigraphy is acquired from the skull base to the proximal thighs. Triplanar noncontrast CT scanning is acquired through the same anatomic range for attenuation correction, and image registration with scan parameters optimized to minimize radiation exposure to the patient. PET scintigraphy and CT datasets were fused and displayed on a workstation with multiplanar and projection display capability. PET/CT Findings: The previously noted right parotid lesion has a low density center today and much improved radiotracer uptake. Maximum standard uptake value today is 2.63. Previously 8.71. There is some prevertebral skeletal muscle uptake right greater than left consistent with normal variant/post radiation change. There is no hypermetabolic adenopathy in the neck. No new mass lesion is seen. Right-sided Cglumw-U-Epkf catheter is observed. There are stable normal-sized non hypermetabolic lymph nodes in the pretracheal region. There is no abnormal hypermetabolic uptake in the thorax on today's PET/CT. There is no abnormal pulmonary parenchymal hypermetabolic uptake. In the abdomen and pelvis, there is normal radiotracer distribution to the liver, spleen, gastrointestinal, and genitourinary systems. There is a residual cystic seroma at the lymphadenectomy site in the right groin. There is a 18 x 10 mm lymph node adjacent to the seroma in the right inguinal soft tissues which shows visible but non-hypermetabolic uptake. This is unchanged. Maximum SUV value 2.04. Cholelithiasis is noted. The previously noted marrow stimulation pattern has abated. Impression: No new focus of hypermetabolic uptake. Improvement in the morphologic appearance and uptake avidity in the right parotid node post radiation. Electronically Signed by Bonifacio Hernandez MD 09/01/2019 01:14 P
== END ==
LOC: M PLARAD 10:22
PROVIDERS: ATTEND Internal Medicine Hematology & Oncology
DX: C82.95 Follicular lymphoma, unspecified, lymph nodes of inguinal region and lower limb (principal)
CPT/HCPCS: 78815; A9552

== ENCOUNTER → 2020-01-07 | Outpatient (CLI) | payer MEDICARE, BC, OTHER ==
[~2020-01-07] MED LIST changes: +ISOVUE-370 76% 100ML VIAL As Ordered ONE; +PURE500C5 PO; +SLOWTAB2 PO
--- NOTE | 2020-01-07 11:23 | REP ---
REASON FOR EXAM: Dyspnea. PRIORS: None. CONTRAST: 100 mL Isovue 370. There is excellent visualization of the pulmonary arterial vasculature. There are no focal filling defects present that would be considered consistent with acute pulmonary emboli. The thoracic aorta is within normal limits. There are no pleural or pericardial effusions. The imaged upper abdomen shows cholelithiasis. There is a nodular surface to the hepatic parenchyma. The is no free fluid in the abdomen. The imaged osseous structures are within normal limits for the patient's age. There are spinal degenerative changes noted. Evaluation of the lung espinosa shows an asymmetric ground-glass opacity in the right lung apex measuring 1.6 cm. No other abnormal nodules, masses, or opacities are present. There is incidental tiny calcified granuloma of the left lower lobe. IMPRESSION: 1. There is no evidence of a pulmonary embolus. 2. There is a ground-glass opacity in the right lung apex as described above. According to the revised Fleischner Society criteria, a 3-month followup is recommended. This lesion represents category 4A lesion. Since there is no solid component to this opacity which measures greater than or equal to 8 mm, PET/CT is not warranted at this time as per that criteria. 3. There is cholelithiasis. 4. Mild modular hepatic surface possibly indicating early cirrhotic features. This should be correlated clinically with appropriate followup. 5. Other findings as described above. Electronically Signed by Kristian Martines DO 01/07/2020 11:52 A
== END ==
LOC: M RAD 09:38
PROVIDERS: ATTEND Family Medicine
DX: R06.02 Shortness of breath (principal); R91.8 Other nonspecific abnormal finding of lung field; K80.20 Calculus of gallbladder without cholecystitis without obstruction
CPT/HCPCS: 71275; Q9967

== ENCOUNTER → 2020-01-10 | Outpatient (CLI) | payer MEDICARE, BC, OTHER ==
[~2020-01-10] MED LIST changes: +ALBU8.5H INH; +ANOR1AER PO; +ASCO500T PO; +FURO20TA2 PO; +FURO40TA2 PO; -ISOVUE-370 76% 100ML VIAL As Ordered ONE; +LASI40TA9 PO; +LEVO750T13 PO; +PRED10PA PO; +VITA100018 PO
== END ==
LOC: M LABSMTC 12:39
PROVIDERS: ATTEND Family Medicine
DX: Z11.59 Encounter for screening for other viral diseases (principal); Z03.818 Encounter for observation for suspected exposure to other biological agents ruled out
CPT/HCPCS: C9803; U0003

== ENCOUNTER 2020-01-18 14:22 | Inpatient (IN) | payer MEDICARE, BC, OTHER ==
[~2020-01-18] VITALS: Ht 160 cm; Wt 89.7 kg
[~2020-01-18 14:22] MED LIST changes: -ALBU8.5H INH; -ANOR1AER PO; -ASCO500T PO; -FURO20TA2 PO; -FURO40TA2 PO; -LASI40TA9 PO; -LEVO750T13 PO; -PRED10PA PO; -VITA100018 PO
[2020-01-18] MEDS ORDERED: FURO40TA2 PO (14:29)
[2020-01-18] MEDS ORDERED: ALBU8.5H INH (14:51)
[2020-01-18 15:21] LABS: BASO % 0.5 % (0.0-1.0); EOS # 0.3 10^3/uL (0.0-0.5); HEMATOCRIT 38.6 % (36.0-47.0); HEMOGLOBIN 12.2 g/dl (12.0-15.5); LYMPH # 1.2 10^3/uL (1.5-5.0); LYMPH % 18.4 % (24.0-44.0); MEAN CORPUSCULAR HEMOGLOBIN 27.9 pg (27.0-33.0); MEAN CORPUSCULAR HGB CONC 31.6 g/dl (32.0-36.5); MEAN CORPUSCULAR VOLUME 88.3 fl (80.0-96.0); MONO # 0.8 10^3/uL (0.0-0.8); MONO % 12.6 % (0.0-5.0); NEUTROPHILS % 62.9 % (36.0-66.0); PLATELET COUNT, AUTOMATED 243 10^3/uL (150-450); RED BLOOD COUNT 4.37 10^6/uL (4.00-5.40); WHITE BLOOD COUNT 6.4 10^3/uL (4.0-10.0)
[2020-01-18] MEDS ORDERED: VITA100018 PO (15:50)
[2020-01-18] MEDS ORDERED: FURO20TA2 PO (15:50)
[2020-01-18] MEDS ORDERED: ASCO500T PO (15:50)
[2020-01-18 15:54] LABS: BLOOD UREA NITROGEN 11 MG/DL (7-18); CALCIUM LEVEL 8.7 MG/DL (8.8-10.2); CARBON DIOXIDE LEVEL 35 MEQ/L (21-32); CHLORIDE LEVEL 100 MEQ/L (98-107); CK-MB VALUE MASS 4.4 NG/ML (<3.6); CPK CREATINE PHOSPHOKINASE 282 U/L (26-192); GLOMERULAR FILTRATION RATE > 60.0 (>39); GLUCOSE, FASTING 109 MG/DL (70-100); MB/CK RELATIVE INDEX 1.56 (< OR =4); NT-PRO BNP 1647 PG/ML (<125); POTASSIUM SERUM 3.4 MEQ/L (3.5-5.1); SODIUM LEVEL 140 MEQ/L (136-145); TROPONIN I < 0.02 NG/ML (< 0.10)
--- NOTE | 2020-01-18 16:13 | REP ---
CHEST: Single view. There is no evidence of acute infiltrate. No pleural effusion is seen. The heart is normal in size. The mediastinal silhouette is unremarkable. The visualized osseous structures are intact. Right central venous catheter is seen with the tip in the superior vena cava. IMPRESSION: No acute pulmonary disease. Electronically Signed by Grant Lowery MD 01/20/2020 12:52 A
[2020-01-18] MEDS ORDERED: FUROSEMIDE 40MG/4ML VIAL (J1940) IV ONE (16:15)
--- NOTE | 2020-01-18 16:19 | IPNPDOC ---
Text Note Date of Service The patient was seen on 01/18/20. NOTE Time of service 4:50 PM is a 74 yr old with a past medical history of folicular LN in remission,Tubal ligation, Hypogammaglobulinemia, HTN, OA, BLE venous insufficie ncy, & B12 def who presented w c/o of dyspnea for several weeks. Her PCP had started her on albuterol for possible bronchitis and she's had testing for Covid which was negative, nevertheless, her dyspnea has persisted, therefore, she decided to come to the hospital for evaluation PE: Obese/ has difficulty speaking full sentences without having to stop to take a breath / breath sounds are diminished/she has +1 bilateral lower extremity pitting edema and stasis dermatitis changes on the legs 1. Dyspnea -possibly 2/2 unknown type of CHF will r/o silent TN as well - no need for d-dimer bc her well's score for PE is 1.5 points, which is low risk -. Her BNP is high in the chest x-ray shows cardiomegaly - Admit to medical floor/ f/u Is and Os, daily weights / IV Lasix/ trend troponins /follow-up Echo 2 . Hypokalemia w hypomagnesemia - replete lytes & f/u blood work in AM 3. Obesity with BMI of 36.4, complicates care -Follow-up A1c to rule out coexisting diabetes - Her PCP can refer her for sleep study and outpatient basis to rule out coexisting sleep apnea rest per 's H&P VS,Fishbone, I+O VS, Fishbone, I+O Laboratory Tests 01/18/20 15:11 Vital Signs Date Time Temp Pulse Resp B/P (MAP) Pulse Ox O2 Delivery O2 Flow Rate FiO2 01/18/20 14:42 Room Air 01/18/20 14:42 01/18/20 14:22 99.3 109 32 92 EUNICE TRAORE MD Jan 18, 2020 16:19
[2020-01-18] MEDS ORDERED: ACETAMINOPHEN TAB 650MG DOSE (2X325MG) PO PRN (16:45)
[2020-01-18] MEDS ORDERED: ALBUTEROL 90 MCG/ACT 8GM HFA INHALER INH PRN (17:00)
[2020-01-18] MEDS ORDERED: SPIRONOLACTONE 25 MG TAB PO SCH (17:00)
--- NOTE | 2020-01-18 17:01 | HPEPDOC ---
General Date of Admission Jan 18, 2020 at 16:20 Date of Service: Jan 18, 2020 Chief Complaint The patient is a 74-year-old female admitted with a reason for visit of CHF. Source: Patient Exam Limitations: No limitations Timing/Duration: Week(s) (2) Severity: Mild Associated Symptoms: Shortness of breath History of Present Illness Pt is a 74 yo female with PMH of stage 3A follicular lymphoma in remission presented to [facility] ER due to 2 weeks of worsening exertional dyspnea that started gradually. She reported that there is also orthopnea and that last night she needed to sleep with 4 pillows. Denies any cough, pleuritic pain, fever, chills, weight changes, diet changes. She reported that she does not limit her fluid or salt intake, and reported that recently there was a change of her med from HCTZ to lasix for breathing problem. She had chronic b/l leg swelling for 10-15 years with hyperpigmentation, and she reported currently the legs are her baseline. Denies any sick contact, travel hx, exposure to birds or reptiles. Last echo was done 2 yrs ago outpt in Dr. Bentley's office which pt reported she was told there was mild thickening of the heart but no major issue. Reported that her lymphoma is in remission with last tx in Apr 2019, s/p chemo and biological agents with radiation in right parotid gland Home Medications Scheduled Ascorbic Acid (Ascorbic Acid) 500 Mg Tablet, 500 MG PO DAILY, (Reported) Cyanocobalamin (Vitamin B-12) (Vitamin B-12) 1,000 Mcg Tablet, 1,000 MCG PO DAILY, (Reported) Furosemide (Furosemide) 20 Mg Tablet, 20 MG PO DAILY, (Reported) Scheduled PRN Albuterol Sulfate (Albuterol Sulfate Hfa) 8.5 Gm Hfa.aer.ad, 2 PUFFS INH Q6H PRN for SOB/WHEEZING, (Reported) Allergies Coded Allergies: sulfamethoxazole (Verified Allergy, Intermediate, rash/ hives, 11/04/18) tetracycline (Verified Allergy, Intermediate, hives/itching, 11/04/18) trimethoprim (Verified Allergy, Intermediate, rash/ hives, 11/04/18) Past Medical History Medical History Bilateral knee osteoarthritis s/p b/l knee arthroplasty Peripheral Edema with chronic Venous stasis Ulcers Diastolic dysfunction(without echo report) Impaired fasting glucose Bilateral cataract Stage IIIa Follicular lymphoma.both and below the diaphragm involving inguinal, pelvic, retroperitoneum, pericardial area, internal mammary, right hilum, subcarinal,superior mediastinum, bilateral supraclavicular and right intraparotid LN locations,s/p chemo with bendamustine and rituximab therapy 6 cycles from October to April 2019 followed by consolidative radiotherapy to her right parotid gland Surgical History Left breast biopsy greater than 10 years ago before to be benign Bilateral cataract removal Tubal ligation Tonsillectomy Left knee total arthroplasty October 2016 Right knee arthroplasty Jul 2017 Right groin lymph node excision Sep 2018 Right parotid biopsy Apr 2019 Family History Mother with history of diabetes type 2 Father with history of Alzheimers dementia Social History * Smoker: Denies Denies recent travel or sick contacts A-FIB/CHADSVASC A-FIB History Current/History of A-Fib/PAF?: No Review of Systems Constitutional: Denies: Chills, Fever, Fatigue Pulmonary: Reports: Dyspnea; Denies: Cough, Pleuritic Chest Pain Cardiovascular: Reports: Orthopnea, Edema (chronic); Denies: Chest Pain, Palpitations Gastrointestinal: Denies: Nausea, Vomiting, Abdominal Pain, Diarrhea, Constipation, Melena, Hematochezia Genitourinary: Denies: Retention Musculoskeletal: Denies: Leg Pain Neurological: Denies: Change in speech, Confusion Physical Examination General Exam: Positive: Alert, Cooperative, No Acute Distress Eye Exam: Positive: Conjunctiva & lids normal; Negative: Sclera icteric ENT Exam: Positive: Atraumatic, Mucous membr. moist/pink Neck Exam: Positive: Supple; Negative: JVD Chest Exam: Positive: Normal air movement, Rales (b/l, mild to mod), Wheezing (mild), Diminished; Negative: Rhonchi Heart Exam: Positive: Tachycardic, Regular Rhythm, Normal S1, Normal S2; Negative: Murmurs Abdomen Exam: Positive: Normal bowel sounds, Soft; Negative: Tenderness Extremity Exam: Positive: Edema; Negative: Tenderness Skin Exam: Positive: Nl turgor and temperature, Other skin issue (chronic hyperpigmentation changes); Negative: Breakdown Neuro Exam: Positive: Normal Speech, Normal Tone Psych Exam: Positive: Mental status NL, Mood NL, Memory Intact, Oriented x 3 Vital Signs Vital Signs Date Time Temp Pulse Resp B/P (MAP) Pulse Ox O2 Delivery O2 Flow Rate FiO2 01/18/20 14:42 Room Air 01/18/20 14:42 01/18/20 14:22 99.3 109 32 92 Laboratory Data Labs 24H Laboratory Tests 2 01/18/20 15:11: Immature Granulocyte % (Auto) 0.6, Neutrophils (%) (Auto) 62.9, Lymphocytes (%) (Auto) 18.4L, Monocytes (%) (Auto) 12.6H, Eosinophils (%) (Auto) 5.0H, Basophils (%) (Auto) 0.5, Neutrophils # (Auto) 4.0, Lymphocytes # (Auto) 1.2L, Monocytes # (Auto) 0.8, Eosinophils # (Auto) 0.3, Basophils # (Auto) 0.0, Nucleated Red Blood Cells % (auto) 0.0, Anion Gap 5L, Glomerular Filtration Rate > 60.0, Calcium Level 8.7L, Total Creatine Kinase 282H, Creatine Kinase MB 4.4H, Creatine Kinase MB Relative Index 1.56, Troponin I < 0.02, EU-Oou-J-Type Natriuretic Peptide 1647H, Thyroid Stimulating Hormone (TSH) 1.150 CBC/BMP Laboratory Tests 01/18/20 15:11 Assessment/Plan 1. Dyspnea likely 2/2 acute on chronic diastolic heart failure. Treat CHF exacerbation with diuresing. Oxygen therapy with resp treatment PRN. 2. Acute on chronic diastolic heart failure, uncompensated. Exertional dyspnea with orthopnea. BNP elevated. prior PMH of diastolic dysfunction documented without echo on file. Repeat echo. Pt repeat lasix 40mg IV in ER. As she is hypokalemic, will start her on spironolactone for diuresis. Repeat BMP, vitals, I&O, weigh daily. Elevated head of bed. 3. HTN. PMH of HTN on home med lasix. Hold home med lasix as pt will be started on spironolactone now. Vital signs standard of care. 4. Hypokalemia, mild, likely 2/2 home lasix use, r/o hypomagnesia. K 3.4 in ER. Pt received 40mg lasix IV after that, anticipate K to decrease after that thus will start pt on spironolactone for diuresis. Repeat BMP. Mg level ordered. May switch to lasix afterwards 5. Vitamin B12 deficiency. Hx of Vitamin B12 deficiency. Cont home med B12 6. 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 Pt reported to be in remission. Per oncology note 12/16/2019, recommend continued close ob with CT chest, abd/pelvis in 3 months with blood work and follow up in [address] Gifford. DVT prophylaxis: Heparin GI prophylaxis: not indicated. Plan / VTE VTE Prophylaxis Ordered?: Yes Plan Diagnostics: Check Labs Anticipated Discharge: Home GME ATTESTATION GME ATTESTATION My faculty preceptor for this patient encounter was physically present during the encounter and was fully available. All aspects of the patient interview, examination, medical decision making process, and medical care plan development were reviewed and approved by the faculty preceptor. The faculty preceptor is aware and concurs with the plan as stated in the body of this note and will attest to such by his/her cosignature. ATTENDING NOTE I agree with the findings as documented. Pls see my addendum. MAURY MELCHOR DO Jan 18, 2020 17:01 EUNICE TRAORE MD Jan 22, 2020 22:30
[2020-01-18 18:10] VITALS: BP 152/88
[2020-01-18 19:00] LABS: CK-MB VALUE MASS 5.4 NG/ML (<3.6); CPK CREATINE PHOSPHOKINASE 310 U/L (26-192); MB/CK RELATIVE INDEX 1.74 (< OR =4); TROPONIN I < 0.02 NG/ML (< 0.10)
--- NOTE | 2020-01-18 20:34 | ECHO ---
DATE OF PROCEDURE: 01/18/2020 INDICATION: Dyspnea. REFERRING PHYSICIAN: Dr. Tovar Height 160 cm, weight 93 kg. DIMENSIONS: IVS: 1.0 LV: 4.5 LVPW: 1.0 LA: 3.5 Aorta: 2.8 IVC: 2.5 Mitral E wave velocity: 85 A wave: 112 E prime septal: 3.5 E prime lateral: 10.1 FINDINGS: The study is of rather difficult technical quality with suboptimal visualization. The patient is in sinus rhythm with occasional atrial ectopy. Left ventricle is normal size and probably normal systolic function based on limited views. Subtle wall motion abnormalities cannot certainly be ruled out. Right ventricle was poorly seen. Left atrium is at least moderately enlarged, right atrium was poorly visualized. Aortic valve has three cusps, it is mildly sclerotic but mobility is preserved. There are very prominent degenerative abnormalities of mitral valve with very prominent mitral annular calcifications and thickening of mitral leaflets. Mobility is preserved. Tricuspid valve appears normal. Pulmonic valve was not well seen. No pericardial effusion is present. Inferior vena cava is dilated but appropriately collapses with inspiration indicative of likely mildly elevated central venous pressure. Aortic root is normal. Aortic arch and abdominal aorta were not visualized. Doppler interrogation of aortic valve reveals no stenosis or insufficiency. Surprisingly, there is also no significant mitral stenosis or insufficiency. Same applies for tricuspid valve. Mitral inflow pattern and tissue Doppler imaging of mitral annulus revealed grade 1 diastolic dysfunction. CONCLUSIONS: 1. Study is of markedly limited technical quality, the patient is in sinus rhythm. 2. Normal LV size with grossly preserved LV systolic function and grade 1 diastolic dysfunction. 3. Right ventricle was poorly visualized. 4. No significant aortic valvular disease. 5. Prominent degenerative abnormalities of mitral valve but without significant stenosis or insufficiency. 6. Likely at least mildly elevated central venous pressure. 7. Unable to estimate pulmonary artery pressure. COMMENT: Subacute bacterial endocarditis (SBE) prophylaxis is not recommended.
[2020-01-18] MEDS: POTASSIUM CHLORIDE 10% LIQ 20 MEQ/15 ML UDC PO SCH (20:43)
[2020-01-18] MEDS: HEPARIN SOD (PORCINE) 5000UNITS/ML VIAL (J1644 PER 1000UNITS) SC SCH (20:43)
[2020-01-18] MEDS: MAGNESIUM OXIDE 400 MG TAB (MAG-OX) PO SCH (20:43)
[2020-01-18] MEDS: FUROSEMIDE 40MG/4ML VIAL (J1940) IV SCH (20:46)
[2020-01-18 21:42] LABS: HEMOGLOBIN A1c 7.1 %
[2020-01-18 21:57] LABS: CK-MB VALUE MASS 5.7 NG/ML (<3.6); CPK CREATINE PHOSPHOKINASE 290 U/L (26-192); MB/CK RELATIVE INDEX 1.97 (< OR =4); TROPONIN I < 0.02 NG/ML (< 0.10)
[2020-01-18 22:00] VITALS: BP 132/59
[2020-01-19] MEDS: POTASSIUM CHLORIDE 10% LIQ 20 MEQ/15 ML UDC PO SCH ×3 (00:29→08:05)
[2020-01-19] MEDS: MAGNESIUM OXIDE 400 MG TAB (MAG-OX) PO SCH (00:29)
[2020-01-19] MEDS: FUROSEMIDE 40MG/4ML VIAL (J1940) IV SCH ×7 (00:30→20:00)
[2020-01-19] MEDS: HEPARIN SOD (PORCINE) 5000UNITS/ML VIAL (J1644 PER 1000UNITS) SC SCH ×3 (05:46→21:15)
[2020-01-19 06:00] VITALS: BP 105/54
[2020-01-19 07:26] LABS: HEMATOCRIT 41.5 % (36.0-47.0); HEMOGLOBIN 13.1 g/dl (12.0-15.5); MEAN CORPUSCULAR HEMOGLOBIN 27.8 pg (27.0-33.0); MEAN CORPUSCULAR HGB CONC 31.6 g/dl (32.0-36.5); MEAN CORPUSCULAR VOLUME 88.1 fl (80.0-96.0); PLATELET COUNT, AUTOMATED 265 10^3/uL (150-450); RED BLOOD COUNT 4.71 10^6/uL (4.00-5.40); WHITE BLOOD COUNT 6.2 10^3/uL (4.0-10.0)
--- NOTE | 2020-01-19 07:37 | ECGEPIP ---
[facility] - ED Test Date: 2020-01-18 Pat Name: JOAQUIM BERG Department: Room: - Gender: Female [employer]: andrew : 1945 Requested By: Santiago Atkins Order Number: [id number] Reading MD: Santiago Tovar Measurements Intervals Sneads Rate: 78 P: FL: 0 QRS: -50 QRSD: 95 T: 76 QT: 389 QTc: 446 Interpretive Statements SINUS RHYTHM WITH MULTIFOCAL PREMATURE ATRIAL COMPLEXES LEFT AXIS DEVIATION PATTERN CONSISTENT WITH PULMONARY DISEASE MINIMAL ST DEPRESSION SIMILAR TO 10/08/16 Electronically Signed on 01-19-2020 7:37:25 EDT by Santiago Tovar
[2020-01-19 07:53] LABS: BLOOD UREA NITROGEN 12 MG/DL (7-18); CALCIUM LEVEL 8.4 MG/DL (8.8-10.2); CARBON DIOXIDE LEVEL 37 MEQ/L (21-32); CHLORIDE LEVEL 101 MEQ/L (98-107); CREATININE FOR GFR 0.69 MG/DL (0.55-1.30); GLOMERULAR FILTRATION RATE > 60.0 (>39); GLUCOSE, FASTING 127 MG/DL (70-100); POTASSIUM SERUM 4.9 MEQ/L (3.5-5.1); SODIUM LEVEL 142 MEQ/L (136-145)
[2020-01-19] MEDS ORDERED: ALBUTEROL SULFATE 2.5 MG/0.5 ML INH NEB SOLN NEB SCH (08:00)
[2020-01-19] MEDS: ASCORBIC ACID 500 MG TAB PO SCH (08:05)
[2020-01-19] MEDS: CYANOCOBALAMIN 500 MCG TAB PO SCH (08:05)
[2020-01-19] MEDS ORDERED: ALBUTEROL 90 MCG/ACT 8GM HFA INHALER INH PRN (09:00)
[2020-01-19 14:00] VITALS: BP 107/58
--- NOTE | 2020-01-19 16:36 | IPNPDOC ---
Subjective Date Seen The patient was seen on 01/19/20. Subjective Chief Complaint/HPI Patient was examined at bedside. She reported mild improvement of exertional dyspnea. Denies dyspnea at rest, cough, fever, chills, chest pain, or chest congestion; reported b/l LE swelling still at baseline for the past decades. General: Denies: Chills Constitutional: Denies: Chills, Fever Pulmonary: Reports: Dyspnea (exertional); Denies: Cough Cardiovascular: Denies: Chest Pain, Palpitations Gastrointestinal: Denies: Nausea, Vomiting, Abdominal Pain, Diarrhea, Constipation, Hematochezia Genitourinary: Denies: Retention Objective Physical Examination General Exam: Positive: Alert, Cooperative, No Acute Distress Eye Exam: Positive: Conjunctiva & lids normal; Negative: Sclera icteric ENT Exam: Positive: Atraumatic, Mucous membr. moist/pink Neck Exam: Positive: Supple; Negative: JVD Chest Exam: Positive: Normal air movement, Wheezing (mild b/l, more prominent in upper lung espinosa), Diminished; Negative: Rhonchi Heart Exam: Positive: Rate Normal, Regular Rhythm, Normal S1, Normal S2; Negative: Murmurs Abdomen Exam: Positive: Normal bowel sounds, Soft; Negative: Tenderness Extremity Exam: Positive: Edema; Negative: Tenderness Skin Exam: Positive: Nl turgor and temperature, Other skin issue (chronic hyperpigmentation changes); Negative: Breakdown Neuro Exam: Positive: Normal Speech, Normal Tone Psych Exam: Positive: Mental status NL, Mood NL, Memory Intact, Oriented x 3; Negative: Anxiety Assessment /Plan Assessment 1. Dyspnea likely 2/2 acute on chronic diastolic heart failure. Treat CHF exacerbation with diuresing with IV lasix. Oxygen therapy with resp treatment PRN. Resume home albuterol PRN 2. Acute on chronic diastolic heart failure, uncompensated. Exertional dyspnea with orthopnea. BNP elevated. prior PMH of diastolic dysfunction documented without echo on file. Repeat echo showed grade I diastolic dysfunction. Pt repeat lasix 40mg IV in ER. Currently on IV lasix 40mg Q4H. Vitals, I&O, weigh daily. Elevate head of bed. 3. HTN. PMH of HTN on home med lasix. Pt now on IV lasix 40mg Q4H. Vital signs standard of care. 4. Hypokalemia, mild, likely 2/2 home lasix use and/or hypomagnesia, resolved. K 3.4 in ER upon admission; repeat BMP showed K of 4.9 with K ordered. Repeat BMP in AM 5. Hypomagnesemia, mild, likely 2/2 home lasix use. Mg 1.6 upon admission, received [id number] Mg repletion. Recheck Mg level. 5. Vitamin B12 deficiency. Hx of Vitamin B12 deficiency. Cont home med B12 6. 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 Pt reported to be in remission. Per oncology note 12/16/2019, recommend continued close ob with CT chest, abd/pelvis in 3 months with blood work and follow up in [address] Gifford. DVT prophylaxis: Heparin GI prophylaxis: not indicated. Plan/VTE VTE Prophylaxis Ordered?: Yes Plan Diet: Continue Current Activity: Continue Current Respiratory: Wean Oxygen Diagnostics: Check Labs, Repeat Labs in AM Anticipated Discharge: Home VS, I&O, 24H, [facility] Vital Signs/I&O Vital Signs Date Time Temp Pulse Resp B/P (MAP) Pulse Ox O2 Delivery O2 Flow Rate FiO2 01/19/20 14:00 98.1 80 15 107/58 (74) 95 Nasal Cannula 2.0 I&O- Last 24 Hours up to 6 AM 01/19/20 06:00 Intake Total 1170 ml Output Total 3450 ml Balance -2280 ml Laboratory Data 24H LABS Laboratory Tests 2 01/18/20 17:04: Magnesium Level 1.6L 01/18/20 18:20: Total Creatine Kinase 310H, Creatine Kinase MB 5.4H, Creatine Kinase MB Relative Index 1.74, Troponin I < 0.02 01/18/20 21:11: Total Creatine Kinase 290H, Creatine Kinase MB 5.7H, Creatine Kinase MB Relative Index 1.97, Troponin I < 0.02, Estimated Mean Plasma Glucose 157H, Hemoglobin A1c 7.1 01/19/20 06:51: Nucleated Red Blood Cells % (auto) 0.0, Anion Gap 4L, Glomerular Filtration Rate > 60.0, Calcium Level 8.4L CBC/BMP Laboratory Tests 01/19/20 06:51 GME ATTESTATION GME ATTESTATION My faculty preceptor for this patient encounter was physically present during the encounter and was fully available. All aspects of the patient interview, examination, medical decision making process, and medical care plan development were reviewed and approved by the faculty preceptor. The faculty preceptor is aware and concurs with the plan as stated in the body of this note and will attest to such by his/her cosignature. ATTENDING NOTE I have seen and examined the patient. I agree with the findings and plan or care as documented in the residents note. MAURY MELCHOR DO Jan 19, 2020 16:35 ALEJANDRO WOODY MD Jan 24, 2020 20:42
[2020-01-19 22:00] VITALS: BP 110/54
[2020-01-20] MEDS: FUROSEMIDE 40MG/4ML VIAL (J1940) IV SCH ×2 (00:52→04:51)
[2020-01-20 06:00] VITALS: BP 113/69
[2020-01-20] MEDS: HEPARIN SOD (PORCINE) 5000UNITS/ML VIAL (J1644 PER 1000UNITS) SC SCH ×3 (06:22→21:31)
[2020-01-20 07:13] LABS: HEMATOCRIT 43.7 % (36.0-47.0); HEMOGLOBIN 13.5 g/dl (12.0-15.5); MEAN CORPUSCULAR HEMOGLOBIN 27.6 pg (27.0-33.0); MEAN CORPUSCULAR HGB CONC 30.9 g/dl (32.0-36.5); MEAN CORPUSCULAR VOLUME 89.4 fl (80.0-96.0); PLATELET COUNT, AUTOMATED 288 10^3/uL (150-450); RED BLOOD COUNT 4.89 10^6/uL (4.00-5.40); WHITE BLOOD COUNT 7.1 10^3/uL (4.0-10.0)
[2020-01-20 07:42] LABS: BLOOD UREA NITROGEN 18 MG/DL (7-18); CALCIUM LEVEL 8.6 MG/DL (8.8-10.2); CARBON DIOXIDE LEVEL 38 MEQ/L (21-32); CHLORIDE LEVEL 96 MEQ/L (98-107); GLOMERULAR FILTRATION RATE > 60.0 (>39); GLUCOSE, FASTING 131 MG/DL (70-100); MAGNESIUM LEVEL 1.5 MG/DL (1.8-2.4); POTASSIUM SERUM 4.4 MEQ/L (3.5-5.1); SODIUM LEVEL 140 MEQ/L (136-145)
[2020-01-20] MEDS ORDERED: MAG SULF 1GM/100ML (MAG RUN) 1 GM in IV 1 EA IV ONE (09:30)
[2020-01-20] MEDS ORDERED: MAGNESIUM OXIDE 400 MG TAB (MAG-OX) PO ONE ×2 (09:30→15:00)
--- NOTE | 2020-01-20 10:32 | IPNPDOC ---
Subjective Date Seen The patient was seen on 01/20/20. Subjective Chief Complaint/HPI Pt is examined at bedside. She reported no dyspnea or exertional dyspnea. Still reported orthopnea with the need to sleep with 4 pillows. She was sat around 96% 2L NC in the exam room. Pt denies any chest pain, palpitation, fever, chills, abdominal pain. General: Denies: Chills Constitutional: Denies: Chills, Fever Pulmonary: Denies: Dyspnea Cardiovascular: Reports: Orthopnea; Denies: Chest Pain, Palpitations Gastrointestinal: Denies: Nausea, Vomiting, Abdominal Pain, Diarrhea, Hematochezia Objective Physical Examination General Exam: Positive: Alert, Cooperative, No Acute Distress Eye Exam: Positive: Conjunctiva & lids normal; Negative: Sclera icteric ENT Exam: Positive: Atraumatic, Mucous membr. moist/pink Neck Exam: Positive: Supple; Negative: JVD Chest Exam: Positive: Clear to auscultation, Normal air movement; Negative: Rales, Rhonchi, Wheezing Heart Exam: Positive: Rate Normal, Regular Rhythm, Normal S1, Normal S2; Negative: Murmurs Abdomen Exam: Positive: Normal bowel sounds, Soft; Negative: Tenderness Extremity Exam: Positive: Edema (improved); Negative: Tenderness Skin Exam: Positive: Nl turgor and temperature, Other skin issue (chronic hyperpigmentation changes); Negative: Breakdown Neuro Exam: Positive: Normal Speech, Normal Tone Psych Exam: Positive: Mental status NL, Mood NL, Memory Intact, Oriented x 3; Negative: Anxiety Assessment /Plan Assessment 1. Dyspnea likely 2/2 acute on chronic diastolic heart failure, resolved. Switch IV lasix to PO lasix. Oxygen therapy with resp treatment PRN. Resume home albuterol PRN 2. Acute on chronic diastolic heart failure, uncompensated, improving. Exertional dyspnea resolved; orthopnea still present. BNP elevated upon admission. prior PMH of diastolic dysfunction documented without echo on file. Repeat echo showed grade I diastolic dysfunction. Pt has been on IV lasix 40mg Q4H; and she received about 40mgX2 on 01/19/2020 with others held due to blood pressure. Vitals, I&O, weigh daily. Elevate head of bed. Switch to PO 40mg Lasix BID. 3. HTN. PMH of HTN on home med lasix 20mg daily. Pt now on PO 40mg lasix BID Vital signs standard of care. 5. Hypomagnesemia, mild, likely 2/2 home lasix use. Mg 1.5 on 01/20/2020, 1 Mg run with Mg Ox 400mg ordered. Recheck Mg in the afternoon 5. Vitamin B12 deficiency. Hx of Vitamin B12 deficiency. Cont home med B12 6. 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 Pt reported to be in remission. Per oncology note 12/16/2019, recommend continued close ob with CT chest, abd/pelvis in 3 months with blood work and follow up in [address] Gifford. DVT prophylaxis: Heparin GI prophylaxis: not indicated. As preceptor for this patient I was fully available. All aspects of the patient interview, examination, medical decision making process, and medical care plan development were reviewed and approved. Aware and concur with the plan as stated in the body of this note and will attest to such by my cosignature. Plan/VTE VTE Prophylaxis Ordered?: Yes Plan Diet: Continue Current Activity: Continue Current Medications: Change to PO Respiratory: Wean Oxygen Diagnostics: Check Labs, Repeat Labs in AM Anticipated Discharge: Home Disposition Diastolic CHF dyspnea resolved; orthopnea; switch to PO lasix VS, I&O, 24H, Fishbone Vital Signs/I&O Vital Signs Date Time Temp Pulse Resp B/P (MAP) Pulse Ox O2 Delivery O2 Flow Rate FiO2 01/20/20 06:00 98.7 75 20 113/69 (84) 92 Nasal Cannula 2.0 I&O- Last 24 Hours up to 6 AM 01/20/20 06:00 Intake Total 1430 ml Output Total 2525 ml Balance -1095 ml Laboratory Data 24H LABS Laboratory Tests 2 01/19/20 17:08: Magnesium Level 1.9 01/20/20 05:57: Magnesium Level 1.5L, Nucleated Red Blood Cells % (auto) 0.0, Anion Gap 6L, Glomerular Filtration Rate > 60.0, Calcium Level 8.6L CBC/BMP Laboratory Tests 01/20/20 05:57 MAURY MELCHOR DO Jan 20, 2020 10:32 STEFFI JJ MD Jan 24, 2020 14:11
[2020-01-20] MEDS: ASCORBIC ACID 500 MG TAB PO SCH (10:56)
[2020-01-20] MEDS: CYANOCOBALAMIN 500 MCG TAB PO SCH (10:57)
[2020-01-20 14:00] VITALS: BP 109/58
[2020-01-20] MEDS: FUROSEMIDE 40 MG TAB PO SCH (17:29)
[2020-01-20 22:00] VITALS: BP 121/57
[2020-01-21] MEDS: HEPARIN SOD (PORCINE) 5000UNITS/ML VIAL (J1644 PER 1000UNITS) SC SCH ×3 (05:30→21:37)
[2020-01-21 05:59] LABS: MEAN CORPUSCULAR HEMOGLOBIN 27.6 pg (27.0-33.0); MEAN CORPUSCULAR VOLUME 89.2 fl (80.0-96.0); PLATELET COUNT, AUTOMATED 248 10^3/uL (150-450); RED BLOOD COUNT 4.71 10^6/uL (4.00-5.40); WHITE BLOOD COUNT 6.7 10^3/uL (4.0-10.0)
[2020-01-21 06:00] VITALS: BP 128/61
[2020-01-21 06:12] LABS: BLOOD UREA NITROGEN 26 MG/DL (7-18); CALCIUM LEVEL 8.4 MG/DL (8.8-10.2); CARBON DIOXIDE LEVEL 39 MEQ/L (21-32); CHLORIDE LEVEL 97 MEQ/L (98-107); CREATININE FOR GFR 0.74 MG/DL (0.55-1.30); GLOMERULAR FILTRATION RATE > 60.0 (>39); GLUCOSE, FASTING 132 MG/DL (70-100); MAGNESIUM LEVEL 1.8 MG/DL (1.8-2.4); POTASSIUM SERUM 4.2 MEQ/L (3.5-5.1); SODIUM LEVEL 138 MEQ/L (136-145)
[2020-01-21] MEDS ORDERED: SALMETEROL DISKUS 50MCG INHALER (SEREVENT) INH SCH (08:00)
[2020-01-21 09:28] LABS: ALBUMIN 3.1 GM/DL (3.2-5.2); NT-PRO BNP 363 PG/ML (<125)
[2020-01-21] MEDS ORDERED: IPRATROPIUM 0.5MG/ALBUTEROL 2.5MG INH SOL UD 3ML (DUONEB) NEB PRN (10:30)
[2020-01-21] MEDS: CYANOCOBALAMIN 500 MCG TAB PO SCH (10:48)
[2020-01-21] MEDS: FUROSEMIDE 40 MG TAB PO SCH ×2 (10:48→17:35)
[2020-01-21] MEDS: ASCORBIC ACID 500 MG TAB PO SCH (10:48)
--- NOTE | 2020-01-21 10:50 | IPNPDOC ---
Subjective Date Seen The patient was seen on 01/21/20. Subjective Chief Complaint/HPI Pt is examined at bedside. She reported no dyspnea or exertional dyspnea. Still reported orthopnea. Pt reported that she is coughing with some mucous; denies fever or chills. COVID reported by pt prior to admission was neg. She was sat around 79% on RA. Pt denies any chest pain, palpitation, fever, chills, abdominal pain. General: Denies: Chills Constitutional: Denies: Chills, Fever Pulmonary: Reports: Cough; Denies: Dyspnea, Pleuritic Chest Pain Cardiovascular: Reports: Orthopnea; Denies: Chest Pain, Palpitations Gastrointestinal: Denies: Nausea, Vomiting, Abdominal Pain, Diarrhea, Constipation, Hematochezia Objective Physical Examination General Exam: Positive: Alert, Cooperative, No Acute Distress Eye Exam: Positive: Conjunctiva & lids normal; Negative: Sclera icteric ENT Exam: Positive: Atraumatic, Mucous membr. moist/pink Neck Exam: Positive: Supple; Negative: JVD Chest Exam: Positive: Normal air movement, Rales (b/l, mild to mod); Negative: Rhonchi, Wheezing Heart Exam: Positive: Rate Normal, Regular Rhythm, Normal S1, Normal S2; Negative: Murmurs Abdomen Exam: Positive: Normal bowel sounds, Soft; Negative: Tenderness Extremity Exam: Positive: Edema (trace); Negative: Tenderness Skin Exam: Positive: Nl turgor and temperature, Other skin issue (chronic hyperpigmentation changes); Negative: Breakdown Neuro Exam: Positive: Normal Speech, Normal Tone Psych Exam: Positive: Mental status NL, Mood NL, Memory Intact, Oriented x 3; Negative: Anxiety Assessment /Plan Assessment 1. Dyspnea likely 2/2 acute on chronic diastolic heart failure, resolved. Switch IV lasix to PO lasix. Oxygen therapy with resp treatment PRN. Cont home albuterol PRN 2. Acute on chronic diastolic heart failure, uncompensated, improving. Exertional dyspnea resolved; orthopnea still present. BNP elevated upon a dmission. prior PMH of diastolic dysfunction documented without echo on file. Repeat echo showed grade I diastolic dysfunction. Pt has been on IV lasix 40mg Q4H; and she received about 40mgX2 on 01/19/2020 with others held due to blood pressure. Vitals, I&O, weigh daily. Elevate head of bed. Switch to PO 40mg Lasix BID. 3. HTN. PMH of HTN on home med lasix 20mg daily. Pt now on PO 40mg lasix BID Vital signs standard of care. 5. Hypomagnesemia, mild, likely 2/2 home lasix use. Mg 1.5 on 01/20/2020, 1 Mg run with Mg Ox 400mg ordered. Recheck Mg in the afternoon 5. Vitamin B12 deficiency. Hx of Vitamin B12 deficiency. Cont home med B12 6. 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 Pt reported to be in remission. Per oncology note 12/16/2019, recommend continued close ob with CT chest, abd/pelvis in 3 months with blood work and follow up in [address] Gifford. 7. Hypoxia likely 2/2 undiagnosed CLARI and/or COPD. Pulse ox 79% on RA. Start Salmeterol, incentive spirometry, acapella with duoneb. As preceptor for this patient I was fully available. All aspects of the patient interview, examination, medical decision making process, and medical care plan development were reviewed and approved. Aware and concur with the plan as stated in the body of this note and will attest to such by my cosignature. Plan/VTE VTE Prophylaxis Ordered?: Yes Plan Diet: Continue Current Activity: Continue Current Medications: Change to PO Respiratory: Wean Oxygen Diagnostics: Check Labs, Repeat Labs in AM Anticipated Discharge: Home VS, I&O, [facility]H, [facility] Vital Signs/I&O Vital Signs Date Time Temp Pulse Resp B/P (MAP) Pulse Ox O2 Delivery O2 Flow Rate FiO2 01/21/20 07:19 82 89 Nasal Cannula 2.0 01/21/20 07:18 99 01/21/20 06:00 97.8 128/61 (83) I&O- Last 24 Hours up to 6 AM 01/21/20 05:59 Intake Total 1260 ml Output Total 1900 ml Balance -640 ml Laboratory Data 24H LABS Laboratory Tests 2 01/20/20 17:38: Magnesium Level 2.1 01/21/20 05:37: Magnesium Level 1.8, Nucleated Red Blood Cells % (auto) 0.0, Anion Gap 2L, Glomerular Filtration Rate > 60.0, Calcium Level 8.4L, GL-Qkw-D-Type Natriuretic Peptide 363H, Albumin 3.1L CBC/BMP Laboratory Tests 01/21/20 05:37 MAURY MELCHOR DO Jan 21, 2020 10:50 STEFFI JJ MD Jan 24, 2020 14:13
[2020-01-21 12:32] LABS: ABG HCO3 36.7 MEQ/L (22.0-26.0); ABG O2 SATURATION 94.5 % (95.0-99.0); ABG PARTIAL PRESSURE CO2 58.6 mmHg (35.0-45.0); ABG PARTIAL PRESSURE O2 69.5 mmHg (75.0-100.0); ABG STANDARD HCO3 33.7 MEQ/L (22.0-26.0); ABG TOTAL CO2 38.5 MEQ/L (23.0-31.0); ABG pH (ARTERIAL) 7.415 UNITS (7.350-7.450)
[2020-01-21] MEDS ORDERED: ISOVUE-370 76% 100ML VIAL As Ordered ONE (12:59)
[2020-01-21 14:00] VITALS: BP 118/58
--- NOTE | 2020-01-21 15:51 | REP ---
CT CHEST WITHOUT IV CONTRAST: CT chest performed without IV contrast. Sagittal and coronal reconstruction images are performed. Comparison is made with a prior study of 01/07/2020. Previously noted patchy atelectasis or infiltrate in the right apex has resolved. There is a tiny calcified granuloma in the left lower lobe. There is no acute infiltrate or pulmonary edema at this time. There is mild scattered interstitial fibrotic scarring, peribronchiolar thickening diffusely and bronchiectasis diffusely. A right central venous catheter is seen with the tip in the superior vena cava. There are a couple of subcentimeter superior mediastinal lymph nodes. There are also a couple of subcentimeter precarinal lymph nodes. No suspicious adenopathy is seen. Mild chronic oval opacity is seen in the right anterior medial hemithorax along the heart border has decreased since the prior studies. Visualized upper abdominal structures are unremarkable and unchanged. IMPRESSION: Mild diffuse chronic lung changes. Previously noted small area of atelectasis or infiltrate in the right upper lobe has resolved. No acute infiltrate or pulmonary edema at this time. No pleural or pericardial effusion. Electronically Signed by Grant Lowery MD 01/25/2020 06:38 P
[2020-01-21 22:00] VITALS: BP 136/78
[2020-01-22] MEDS: HEPARIN SOD (PORCINE) 5000UNITS/ML VIAL (J1644 PER 1000UNITS) SC SCH ×3 (05:21→22:35)
[2020-01-22 06:00] VITALS: BP 123/82
[2020-01-22 06:41] LABS: HEMATOCRIT 41.7 % (36.0-47.0); HEMOGLOBIN 12.9 g/dl (12.0-15.5); MEAN CORPUSCULAR HEMOGLOBIN 27.7 pg (27.0-33.0); MEAN CORPUSCULAR HGB CONC 30.9 g/dl (32.0-36.5); MEAN CORPUSCULAR VOLUME 89.7 fl (80.0-96.0); PLATELET COUNT, AUTOMATED 245 10^3/uL (150-450); RED BLOOD COUNT 4.65 10^6/uL (4.00-5.40); WHITE BLOOD COUNT 6.5 10^3/uL (4.0-10.0)
[2020-01-22 07:01] LABS: BLOOD UREA NITROGEN 20 MG/DL (7-18); CALCIUM LEVEL 8.6 MG/DL (8.8-10.2); CARBON DIOXIDE LEVEL 37 MEQ/L (21-32); CHLORIDE LEVEL 97 MEQ/L (98-107); GLOMERULAR FILTRATION RATE > 60.0 (>39); GLUCOSE, FASTING 142 MG/DL (70-100); POTASSIUM SERUM 4.1 MEQ/L (3.5-5.1); SODIUM LEVEL 140 MEQ/L (136-145)
[2020-01-22] MEDS: CYANOCOBALAMIN 500 MCG TAB PO SCH (08:00)
[2020-01-22] MEDS: FUROSEMIDE 40 MG TAB PO SCH ×2 (08:00→17:29)
[2020-01-22] MEDS: ASCORBIC ACID 500 MG TAB PO SCH (08:00)
[2020-01-22] MEDS: FORMOTEROL FUMARATE 20 MCG/2 ML INHALATION SOLUTION (PERFOROMIST) INH SCH ×3 (08:00→19:36)
[2020-01-22] MEDS: IPRATROPIUM 0.5MG/ALBUTEROL 2.5MG INH SOL UD 3ML (DUONEB) NEB SCH ×2 (08:49→15:17)
[2020-01-22 10:14] LABS: MAGNESIUM LEVEL 1.8 MG/DL (1.8-2.4)
[2020-01-22] MEDS ORDERED: FUROSEMIDE 40MG/4ML VIAL (J1940) IV ONE (12:00)
--- NOTE | 2020-01-22 13:09 | IPNPDOC ---
Subjective Date Seen The patient was seen on 01/22/20. Subjective Chief Complaint/HPI Pt was examined at bedside. She reported no resting dyspnea, exertional dyspnea, fever, chills, or chest pain. She reported still having some orthopnea which had improved. Pt reported her oxygen desats to 77% while on 2L NC after walking 4 steps of stairs. Pt voiced no other symptoms. Pt reported she thinks her leg swelling have continued to improve. Reported hx of tobacco use [id number] yrs, quit 6-7 years ago. Hx of bronchitis diagnosed about 6-8 times prior General: Denies: Chills Constitutional: Denies: Chills, Fever Pulmonary: Reports: Cough; Denies: Dyspnea, Pleuritic Chest Pain Cardiovascular: Reports: Orthopnea; Denies: Chest Pain, Palpitations Gastrointestinal: Denies: Abdominal Pain Other systems b/l LE edema improving Objective Physical Examination General Exam: Positive: Alert, Cooperative, No Acute Distress Eye Exam: Positive: Conjunctiva & lids normal; Negative: Sclera icteric ENT Exam: Positive: Atraumatic, Mucous membr. moist/pink Neck Exam: Positive: Supple; Negative: JVD Chest Exam: Positive: Normal air movement, Rales (b/l, mild to mod), D iminished; Negative: Rhonchi, Wheezing Heart Exam: Positive: Rate Normal, Regular Rhythm, Normal S1, Normal S2; Negative: Murmurs Abdomen Exam: Positive: Normal bowel sounds, Soft; Negative: Tenderness Extremity Exam: Negative: Edema, Tenderness Skin Exam: Positive: Nl turgor and temperature, Other skin issue (chronic hyperpigmentation changes); Negative: Breakdown Neuro Exam: Positive: Normal Speech, Normal Tone Psych Exam: Positive: Mental status NL, Mood NL, Memory Intact, Oriented x 3; Negative: Anxiety Assessment /Plan Assessment 1. Dyspnea likely 2/2 acute on chronic diastolic heart failure and/or bronchiectasis exacerbation, resolved. Cont PO lasix. Oxygen therapy with resp treatment PRN. Cont home albuterol PRN 2. Acute on chronic diastolic heart failure, uncompensated, improving. Exertional dyspnea resolved; orthopnea still present. BNP elevated upon admission. prior PMH of diastolic dysfunction documented without echo on file. Repeat echo showed grade I diastolic dysfunction. Pt has been on IV lasix 40mg Q4H; and she received about 40mgX2 on 01/19/2020 with others held due to blood pressure. Vitals, I&O, weigh daily. Elevate head of bed. Cont PO 40mg Lasix BID. Another dose of IV lasix 40mg ordered for today. 3. HTN. PMH of HTN on home med lasix 20mg daily. Pt now on PO 40mg lasix BID. Vital signs standard of care. 5. Hypomagnesemia, 2/2 home lasix use, resolved. Resolved after repletion. F/u with Mag level 5. Vitamin B12 deficiency. Hx of Vitamin B12 deficiency. Cont home med B12 6. 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 Pt reported to be in remission. Per oncology note 12/16/2019, recommend continued close ob with CT chest, abd/pelvis in 3 months with blood work and follow up in [address] Gifford. 7. Hypoxia 2/2 bronchiectasis. Pulse ox 77% on 2L with 4 steps of stairs. Started Salmeterol, incentive spirometry, acapella with duoneb ordered to start 01/22/2020 AM; Salmeterol was not given on 01/22/2020 due to reasons listed as medication not available with no day team provider notified. Start Formoterol scheduled, duoneb scheduled, chest PT, PT/OT. Per group discussion duplex b/l LE US ordered d/t hypoxia and hx of malignancy 8. Diffuse bronchiectasis, acute exacerbation.CT chest evidence of diffuse bronchiectasis. Temp 99.3F upon admission. Cough, mucous production with coughing, hypoxia requiring oxygen with pulse ox down to 77% on 2L oxygen with 4 steps of stairs. Smoking hx [id number]. Incentive spirometry, acapella with duoneb, chest PT, Formoterol, and neb saline. If no improvement of hypoxia, start augmentin for bronchiectasis exacerbation. Sputum cx ordered. Plan/VTE VTE Prophylaxis Ordered?: Yes Plan Diet: Continue Current Activity: Continue Current Therapy: PT, OT Medications: Change to PO Respiratory: Wean Oxygen, Pulse Ox on Room Air, Ambulatory Pulse Ox RA Diagnostics: Repeat Labs in AM Anticipated Discharge: Home VS, I&O, 24H, Fishbone Vital Signs/I&O Vital Signs Date Time Temp Pulse Resp B/P (MAP) Pulse Ox O2 Delivery O2 Flow Rate FiO2 01/22/20 09:00 2.0 01/22/20 06:00 98.0 76 19 123/82 (96) 96 Nasal Cannula I&O- Last 24 Hours up to 6 AM 01/22/20 06:00 Intake Total 780 ml Output Total 2600 ml Balance -1820 ml Laboratory Data 24H LABS Laboratory Tests 2 01/22/20 06:26: Nucleated Red Blood Cells % (auto) 0.0, Anion Gap 6L, Glomerular Filtration Rate > 60.0, Calcium Level 8.6L, Magnesium Level 1.8 CBC/BMP Laboratory Tests 01/22/20 06:26 GME ATTESTATION GME ATTESTATION My faculty preceptor for this patient encounter was physically present during the encounter and was fully available. All aspects of the patient interview, examination, medical decision making process, and medical care plan development were reviewed and approved by the faculty preceptor. The faculty preceptor is aware and concurs with the plan as stated in the body of this note and will attest to such by his/her cosignature. MAURY MELCHOR DO Jan 22, 2020 13:09
[2020-01-22] MEDS: SODIUM CHLORIDE 0.9% 3ML NEB SOLUTION FOR INHALATION INH SCH ×2 (15:17→19:37)
--- NOTE | 2020-01-22 18:10 | REPVR ---
PROCEDURE INFORMATION: Exam: US Duplex Lower Extremity Veins, Bilateral Exam date and time: 01/22/2020 5:21 PM Age: 75 years old Clinical indication: Condition or disease; Other: Hypoxia; Additional info: Hypoxia; R/O dvt, do after covid results are back TECHNIQUE: Imaging protocol: Real-time duplex ultrasound of the extremities with 2-D stratton scale, color Doppler flow and spectral waveform analysis with image documentation. Complete exam focused on the bilateral lower extremity veins. COMPARISON: US Duplex, Ext,LOWER veins,unilat RIGHT 08/06/2018 5:03 PM FINDINGS: Right deep veins: Unremarkable. The common femoral, femoral and popliteal veins are patent without thrombus. Normal Doppler waveforms. Normal compressibility and/or augmentation response. Right superficial veins: Saphenofemoral junction is patent without thrombus. Left deep veins: Unremarkable. The common femoral, femoral and popliteal veins are patent without thrombus. Normal Doppler waveforms. Normal compressibility and/or augmentation response. Left superficial veins: Saphenofemoral junction is patent without thrombus. Soft tissues: There is a large 7.5 x 3.4 x 4.6 cm cystic mass in the right superficial inguinal region. This shows no internal vascularity which is a new finding since the previous right groin ultrasound study from 08/06/2018 which showed intense vascularity in this probable malignant lymph node. The lymph node is likely now necrotic, post treatment. IMPRESSION: 1. No evidence of deep vein thrombosis in the major veins of both lower extremities. 2. There is a large 7.5 x 3.4 x 4.6 cm cystic mass in the right superficial inguinal region. This shows no internal vascularity which is a new finding since the previous right groin ultrasound study from 08/06/2018 which showed intense vascularity in this probable malignant lymph node. The lymph node is likely now necrotic, post treatment. Electronically signed by: Jeronimo Vela On 01/22/2020 18:10:08 PM
[2020-01-22] MEDS: IPRATROPIUM HFA INHALER 12.9 GRAMS (ATROVENT HFA) INH SCH (19:38)
[2020-01-22] MEDS: ALBUTEROL 90 MCG/ACT 8GM HFA INHALER INH SCH (20:00)
[2020-01-22 22:00] VITALS: BP 112/54
[2020-01-23 06:00] VITALS: BP 106/55
[2020-01-23 06:55] LABS: HEMATOCRIT 40.3 % (36.0-47.0); HEMOGLOBIN 12.7 g/dl (12.0-15.5); MEAN CORPUSCULAR HGB CONC 31.5 g/dl (32.0-36.5); PLATELET COUNT, AUTOMATED 233 10^3/uL (150-450); RED BLOOD COUNT 4.53 10^6/uL (4.00-5.40); WHITE BLOOD COUNT 6.1 10^3/uL (4.0-10.0)
[2020-01-23] MEDS: HEPARIN SOD (PORCINE) 5000UNITS/ML VIAL (J1644 PER 1000UNITS) SC SCH ×3 (06:57→21:54)
[2020-01-23 07:18] LABS: BLOOD UREA NITROGEN 22 MG/DL (7-18); CALCIUM LEVEL 9.1 MG/DL (8.8-10.2); CARBON DIOXIDE LEVEL 38 MEQ/L (21-32); CHLORIDE LEVEL 94 MEQ/L (98-107); CREATININE FOR GFR 0.63 MG/DL (0.55-1.30); GLOMERULAR FILTRATION RATE > 60.0 (>39); GLUCOSE, FASTING 124 MG/DL (70-100); POTASSIUM SERUM 3.6 MEQ/L (3.5-5.1); SODIUM LEVEL 136 MEQ/L (136-145)
[2020-01-23] MEDS: FORMOTEROL FUMARATE 20 MCG/2 ML INHALATION SOLUTION (PERFOROMIST) INH SCH ×2 (07:32→19:54)
[2020-01-23] MEDS: IPRATROPIUM HFA INHALER 12.9 GRAMS (ATROVENT HFA) INH SCH ×3 (07:34→19:55)
[2020-01-23] MEDS: ALBUTEROL 90 MCG/ACT 8GM HFA INHALER INH SCH ×3 (07:35→19:55)
[2020-01-23] MEDS: SODIUM CHLORIDE 0.9% 3ML NEB SOLUTION FOR INHALATION INH SCH ×5 (07:35→19:55)
[2020-01-23] MEDS: ASCORBIC ACID 500 MG TAB PO SCH (09:20)
[2020-01-23] MEDS: LevoFLOXacin 750 MG TABLET PO SCH (09:20)
[2020-01-23] MEDS: CYANOCOBALAMIN 500 MCG TAB PO SCH (09:20)
[2020-01-23] MEDS: methylPREDNISolone INJ 125 MG/2 ML VIAL (J2930) IV SCH ×2 (09:21→21:54)
[2020-01-23] MEDS: FUROSEMIDE 40 MG TAB PO SCH (09:21)
--- NOTE | 2020-01-23 10:49 | IPNPDOC ---
Text Note Date of Service The patient was seen on 01/23/20. NOTE Subjective: Patient seen and examined at bedside. No acute overnight events reported. States her breathing continues to improve. No new medical complaints. Objective: General; NAD, sitting comfortably at edge of bed HEENT: NC/AT, EOMI Lungs: mild rhonchi LILLY, scattered wheezes Heart: +S1S2, RRR Abd: soft, NT, +BS, obese Ext: trace edema A/P: 75 yo female with PMHx follicular lymphoma in remission, presents for SOB secondary to decompensated CHF, complicated with bronchiectasis/reactive airway disease. #SOB - acute hypoxic respiratory failure - continue to wean O2 - multifactorial etiology - tolerated additional lasix yesterday - will trial additional dose today 40 IV x 1 - start abx/steroids - very low suspicion for PE #HFpEF - as above, grossly compensated - perhaps can tolerate additional diuresis - continue lasix # HTN # Hypomagnesemia - resolved # Vitamin B12 deficiency. Hx of Vitamin B12 deficiency. 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 Pt reported to be in remission. Per oncology note 12/16/2019, recommend continued close ob with CT chest, abd/pelvis in 3 months with blood work and follow up in [address] Gifford. # bronchiectasis. Pulse ox 77% on 2L with 4 steps of stairs. Started Salmeterol, incentive spirometry, acapella with duoneb ordered to start 01/22/2020 AM; Salmeterol was not given on 01/22/2020 due to reasons listed as medication not available with no day team provider notified. Start Formoterol scheduled, duoneb scheduled, chest PT, PT/OT. Started oral steroid/abx VS,Fishbone, I+O VS, Fishbone, I+O Laboratory Tests 01/23/20 06:34 Vital Signs Date Time Temp Pulse Resp B/P (MAP) Pulse Ox O2 Delivery O2 Flow Rate FiO2 01/23/20 06:00 98.0 71 20 106/55 (72) 90 Nasal Cannula 0.5 I&O- Last 24 Hours up to 6 AM 01/23/20 05:59 Intake Total 1110 ml Output Total 0 ml Balance 1110 ml STEFFI JJ MD Jan 23, 2020 10:49
[2020-01-23 14:00] VITALS: BP 124/55
[2020-01-23] MEDS ORDERED: FUROSEMIDE 40MG/4ML VIAL (J1940) IV ONE (16:00)
[2020-01-23] MEDS ORDERED: FUROSEMIDE 20MG/2ML VIAL (J1940) IV ONE (16:30)
[2020-01-23 22:00] VITALS: BP 122/55
[2020-01-24 06:00] VITALS: BP 101/65
[2020-01-24] MEDS: HEPARIN SOD (PORCINE) 5000UNITS/ML VIAL (J1644 PER 1000UNITS) SC SCH ×2 (06:06→13:59)
[2020-01-24 06:24] LABS: HEMATOCRIT 43.1 % (36.0-47.0); HEMOGLOBIN 13.6 g/dl (12.0-15.5); MEAN CORPUSCULAR HEMOGLOBIN 27.6 pg (27.0-33.0); MEAN CORPUSCULAR HGB CONC 31.6 g/dl (32.0-36.5); MEAN CORPUSCULAR VOLUME 87.6 fl (80.0-96.0); PLATELET COUNT, AUTOMATED 279 10^3/uL (150-450); RED BLOOD COUNT 4.92 10^6/uL (4.00-5.40); WHITE BLOOD COUNT 5.7 10^3/uL (4.0-10.0)
[2020-01-24 06:43] LABS: CALCIUM LEVEL 9.6 MG/DL (8.8-10.2); CREATININE FOR GFR 1.12 MG/DL (0.55-1.30); GLOMERULAR FILTRATION RATE 50.8 (>39); POTASSIUM SERUM 3.9 MEQ/L (3.5-5.1)
[2020-01-24] MEDS: IPRATROPIUM HFA INHALER 12.9 GRAMS (ATROVENT HFA) INH SCH ×2 (07:43→12:09)
[2020-01-24] MEDS: FORMOTEROL FUMARATE 20 MCG/2 ML INHALATION SOLUTION (PERFOROMIST) INH SCH (07:43)
[2020-01-24] MEDS: ALBUTEROL 90 MCG/ACT 8GM HFA INHALER INH SCH ×2 (07:44→12:09)
[2020-01-24] MEDS: SODIUM CHLORIDE 0.9% 3ML NEB SOLUTION FOR INHALATION INH SCH ×2 (08:00→12:00)
[2020-01-24] MEDS ORDERED: predniSONE 20 MG TAB PO SCH (09:00)
[2020-01-24] MEDS: FUROSEMIDE 40 MG TAB PO SCH (09:00)
[2020-01-24] MEDS: CYANOCOBALAMIN 500 MCG TAB PO SCH (09:41)
[2020-01-24] MEDS: LevoFLOXacin 750 MG TABLET PO SCH (09:41)
[2020-01-24] MEDS: ASCORBIC ACID 500 MG TAB PO SCH (09:41)
[2020-01-24] MEDS ORDERED: ANOR1AER PO (10:45)
[2020-01-24] MEDS ORDERED: PRED10PA PO (10:51)
[2020-01-24] MEDS ORDERED: LEVO750T13 PO (10:51)
[2020-01-24] MEDS ORDERED: LASI40TA9 PO (10:52)
[2020-01-24 14:00] VITALS: BP 108/70
--- NOTE | 2020-01-24 16:34 | DS.PDOC ---
Discharge Summary General Date of Admission Jan 18, 2020 at 16:20 Date of Discharge 01/24/2020 Discharge Summary PROCEDURES PERFORMED DURING STAY: [None]. ADMITTING DIAGNOSES: 1. Dyspnea likely 2/2 acute on chronic diastolic heart failure 2. Acute on chronic diastolic heart failure, uncompensated 3. HTN 4. Hypokalemia, mild, likely 2/2 home lasix use, r/o hypomagnesia 5. Vitamin B12 deficiency 6. 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 Dyspnea likely 2/2 acute on chronic diastolic heart failure and/or bronchiectasis exacerbation, resolved 2. Acute on chronic diastolic heart failure, currently compensated 3. HTN 5. Hypomagnesemia, 2/2 home lasix use, resolved 5. Vitamin B12 deficiency, chronic 6. 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 Hypoxia 2/2 bronchiectasis, improved and stable 8. Diffuse bronchiectasis, acute exacerbation, improved COMPLICATIONS/CHIEF COMPLAINT: Exertional dyspnea HISTORY OF PRESENT ILLNESS: Pt is a 74 yo female with PMH of stage 3A follicular lymphoma in remission presented to [facility] ER due to 2 weeks of worsening exer tional dyspnea that started gradually. She reported that there is also orthopnea and that last night she needed to sleep with 4 pillows. Denies any cough, pleuritic pain, fever, chills, weight changes, diet changes. She reported that she does not limit her fluid or salt intake, and reported that recently there was a change of her med from HCTZ to lasix for breathing problem. She had chronic b/l leg swelling for 10-15 years with hyperpigmentation, and she reported currently the legs are her baseline. Denies any sick contact, travel hx, exposure to birds or reptiles. Last echo was done 2 yrs ago outpt in Dr. Bentley's office which pt reported she was told there was mild thickening of the heart but no major issue. Reported that her lymphoma is in remission with last tx in Apr 2019, s/p chemo and biological agents with radiation in right parotid gland HOSPITAL COURSE:Pt was noted to have elevated BNP with b/l LE edema and was diuresed with lasix IV and PO inpatient, and her b/l LE edema improved. She reported exertional dyspnea had improved however continues to have hypoxia requiring oxygen. Incentive spirometry, acapella, and chest PT was ordered. Pt's chest CT noted diffused bronchiectasis with resolving atelectasis. LABA was ordered, and oral steroids and levofloxacin was also ordered for bronchiectasis exacerbation. On the day of discharge, pt denies any orthopnea, dyspnea at rest, or exertional dyspnea. She was sat from 89%-95% on RA in the exam room. It was noted per PT that with ambulations 150ft, her pulse ox remained >90%. Pt was determined ready to be discharged with follow up PCP and recommended pulm establishment. DISCHARGE MEDICATIONS: Please see below. ALLERGIES: Please see below. PHYSICAL EXAMINATION ON DISCHARGE: VITAL SIGNS: Please see below. General Exam: Alert, Cooperative, No Acute Distress Eye Exam: Conjunctiva & lids normal. No sclera icterus ENT Exam: Atraumatic, Mucous membr. moist/pink Neck Exam: Supple. No JVD Chest Exam: Normal air movement, mild wheezing in left upper lobe region. Mildly diminished breath sounds. Heart Exam: Rate Normal, Regular Rhythm, Normal S1, Normal S2. No murmur Abdomen Exam: Normal bowel sounds, Soft, no guarding or distention. No tenderness in any quadrants Extremity Exam: No edema or swelling Skin Exam: Normal turgor and temperature, chronic hyperpigmentation changes in b/l LE Neuro Exam: Normal Speech, Normal Tone Psych Exam: Mental status NL, Mood NL, Memory Intact, Oriented x 3 LABORATORY DATA: Please see below. IMAGING: CXR showed no acute pulm process PROGNOSIS: Fair ACTIVITY: [As tolerated]. DIET: Low sodium diet; consistent carbohydrate diet. 1800ml fluid restriction per day. DISPOSITION: 01 Home, Self-Care. DISCHARGE PLAN AND INSTRUCTIONS: 1. Take medication as prescribed. Prednisone 40mgX4 days, followed by 30mgX3 days, followed by 20mgX2 days, followed by 10mgX1 day. 2. Follow up with PCP in 7 days 3. 2g Na with consistent carbohydrate diet; 1800ml fluid restriction per day ITEMS TO FOLLOWUP ON ON OUTPATIENT: 1. Bronchiectasis 2. Diastolic heart failure 3. Recommend pulmonary function test DISCHARGE CONDITION: [Improved]. TIME SPENT ON DISCHARGE: Greater than [38] minutes. Vital Signs/I&Os Vital Signs Date Time Temp Pulse Resp B/P (MAP) Pulse Ox O2 Delivery O2 Flow Rate FiO2 01/24/20 14:00 98.1 67 19 108/70 (83) 98 Nasal Cannula 0.5 I&O- Last 24 Hours up to 6 AM 01/24/20 06:00 Intake Total 990 ml Output Total 1500 ml Balance -510 ml Laboratory Data Labs 24H Laboratory Tests 2 01/24/20 05:42: Nucleated Red Blood Cells % (auto) 0.0, Anion Gap 7L, Glomerular Filtration Rate 50.8, Calcium Level 9.6 CBC/BMP Laboratory Tests 01/24/20 05:42 Microbiology Microbiology 01/22/20 Respiratory Virus Panel (PCR) (JESSICA) - Final, Complete 01/22/20 Gram Stain - Final, Complete 01/22/20 Sputum Culture - Final, Complete Discharge Medications Scheduled Ascorbic Acid (Ascorbic Acid) 500 Mg Tablet, 500 MG PO DAILY, (Reported) Cyanocobalamin (Vitamin B-12) (Vitamin B-12) 1,000 Mcg Tablet, 1,000 MCG PO DAILY, (Reported) Furosemide (Lasix) 40 Mg Tablet, 40 MG PO Q12H Levofloxacin (Levofloxacin) 750 Mg Tablet, 750 MG PO DAILY Prednisone (Prednisone) 10 Mg Tab.ds.pk, 10 MG PO DAILY Umeclidinium Brm/Vilanterol Tr (Anoro Ellipta 62.5-25 Mcg INH) 1 Each Blst.w.dev, 1 PUFF PO DAILY Scheduled PRN Albuterol Sulfate (Albuterol Sulfate Hfa) 8.5 Gm Hfa.aer.ad, 2 PUFFS INH Q6H PRN for SOB/WHEEZING, (Reported) Allergies Coded Allergies: sulfamethoxazole (Verified Allergy, Intermediate, rash/ hives, 11/04/18) tetracycline (Verified Allergy, Intermediate, hives/itching, 11/04/18) trimethoprim (Verified Allergy, Intermediate, rash/ hives, 11/04/18) GME ATTESTATION GME ATTESTATION My faculty preceptor for this patient encounter was physically present during the encounter and was fully available. All aspects of the patient interview, examination, medical decision making process, and medical care plan development were reviewed and approved by the faculty preceptor. The faculty preceptor is aware and concurs with the plan as stated in the body of this note and will attest to such by his/her cosignature. MAURY MELCHOR DO Jan 24, 2020 16:34
== END 2020-01-24 15:11 | disposition home or self-care (01) | DRG 292 ==
LOC: M ED 14:22 → M ED INP 16:20 → ENRESERV 17:55 → M MSPAV 18:12
PROVIDERS: ADMIT Internal Medicine; ATTEND Internal Medicine
DX: I11.0 Hypertensive heart disease with heart failure (principal); J47.1 Bronchiectasis with (acute) exacerbation; I50.33 Acute on chronic diastolic (congestive) heart failure; I87.2 Venous insufficiency (chronic) (peripheral); R73.01 Impaired fasting glucose; E87.6 Hypokalemia; G47.33 Obstructive sleep apnea (adult) (pediatric); E53.8 Deficiency of other specified B group vitamins; E66.9 Obesity, unspecified; E83.42 Hypomagnesemia; Z92.3 Personal history of irradiation; Z92.21 Personal history of antineoplastic chemotherapy; Z79.899 Other long term (current) drug therapy; Z88.2 Allergy status to sulfonamides; Z88.1 Allergy status to other antibiotic agents; Z88.8 Allergy status to other drugs, medicaments and biological substances; Z68.36 Body mass index [BMI] 36.0-36.9, adult; Z85.79 Personal history of other malignant neoplasms of lymphoid, hematopoietic and related tissues; Z96.653 Presence of artificial knee joint, bilateral; Z98.41 Cataract extraction status, right eye; Z98.42 Cataract extraction status, left eye; Z11.59 Encounter for screening for other viral diseases

== ENCOUNTER → 2020-03-24 | Outpatient (CLI) | payer MEDICARE, BC, OTHER ==
[~2020-03-24] MED LIST changes: +ALBU8.5H INH; +ANOR1AER PO; +ASCO500T PO; +FURO20TA2 PO; +FURO40TA2 PO; +GASTROGRAFIN SOLUTION 30ML (Q9963) ONE; +ISOVUE-370 76% 100ML VIAL ONE; +LASI40TA9 PO; +LEVO750T13 PO; +PRED10PA PO; +TREL1AER PO; +VITA100018 PO
--- NOTE | 2020-05-03 09:31 | REP ---
CT OF THE CHEST WITH IV CONTRAST: HISTORY: Restaging lymphoma. CONTRAST DOSE: 100 ml of intravenous Isovue 370 COMPARISON: 01/21/20 and 01/07/20 FINDINGS: There is no evidence of pulmonary nodule or mass lesion. There are mild scattered subtle fibrotic changes again noted, as before in the lung parenchyma. No pleural or pericardial effusion is seen. There are stable pretracheal and precarinal lymph nodes, normal in size. There is a small soft tissue density consistent with a lymph node in the anterior pericardial fat, which is unchanged from prior studies, including 01/07/20. This 2.2 x 1.2 x 1.6 cm. There is a low density retrocrural lymph node on the right, which is decreased in size from comparison CT study of 09/01/18 and only measures 9 mm today, not pathologically enlarged. Cholelithiasis is again noted. There is mild fatty infiltration of the liver and a small cyst is seen in the upper pole of the left kidney. There is some vascular calcification in the left coronary artery distribution. No other vascular abnormality. Bone window settings show no bony destructive lesion. IMPRESSION: Stable chest CT findings. MTDD
--- NOTE | 2020-05-03 09:32 | REP ---
CT ABDOMEN AND PELVIS WITH IV AND ORAL CONTRAST HISTORY: Restaging lymphoma. COMPARISON: CT study from 09/01/2018. CT FINDINGS: The liver and spleen are normal in size and homogeneous in texture. No adrenal lesion is seen. Gallstones are noted in the lumen of the gallbladder. No abnormality is noted in the pancreas. There is a small cortical cyst 9 mm in diameter in the upper pole of the left kidney. There is a 9-mm right retrocrural lymph node improved from 09/01/2018 CT. There is no evidence of retroperitoneal lymphadenopathy with several tiny lymph nodes in the periaortic region. There is a left common iliac lymph node measuring 10 mm in diameter. This contains some central fat. This node is decreased in size from the prior study when it measured 12 mm x 17 mm. There is a small right common iliac artery lymph node normal in size also decreased from the prior study. The large right pelvic side wall bulky adenopathy seen on the prior CT study has resolved. Similarly, the previously noted inguinal adenopathy is much improved. There is a persistent fluid collection surrounded by calcifications and surgical clips in the right inguinal soft tissues. This fluid collection measures 4.6 x 4.3 cm. The largest lymph node in the right groin measures 12 mm in short axis dimension, previously 22 mm. The largest lymph node in the left groin measures 12 mm in short axis dimension, previously 16 mm. There is some skeletal muscle marbling and atrophy about the left hip compared to the right, but this is stable and unchanged. No uterine or ovarian abnormalities seen. No evidence of ascites. IMPRESSION: Cholelithiasis. Previously noted multifactorial abdominal adenopathy is resolved or much improved as above. No new mass or adenopathy seen. MTDD
== END ==
LOC: M RAD 11:00
PROVIDERS: ATTEND Specialist
DX: K80.20 Calculus of gallbladder without cholecystitis without obstruction (principal); Z85.72 Personal history of non-Hodgkin lymphomas
CPT/HCPCS: 71260; 74177; Q9963; Q9967

== ENCOUNTER → 2021-04-23 | Outpatient (CLI) | payer MEDICARE, BC, OTHER ==
[~2021-04-23] MED LIST changes: +CALC600C3 PO; +GASTROGRAFIN SOLUTION 30ML (Q9963) As Ordered ONE; -GASTROGRAFIN SOLUTION 30ML (Q9963) ONE; +GNP250TA9 PO; +HYDR-3490 PO; -HYDR25TAB PO; +ISOVUE-370 76% 100ML VIAL As Ordered ONE; -ISOVUE-370 76% 100ML VIAL ONE; +K-TA1TAB PO; -KLOR20TA42 PO; +POTA-141 PO
--- NOTE | 2021-04-23 14:16 | REP ---
INDICATION: LYMPHOMA. COMPARISON: Multiple the latest 03/24/2020 TECHNIQUE: Standard helical technique after the intravenous administration of 100 cc Isovue 370. Oral bowel preparatory contrast was also administered prior to the exam. FINDINGS: The liver, gallbladder, spleen, pancreas, adrenal glands, and kidneys are unchanged. There is cholelithiasis status quo. There are left renal cysts status quo. The abdominal aorta and para-aortic regions are unchanged. There are nonenlarged lymph node status quo. The bowel loops and the mesenteries are unchanged. No mass or adenopathy has developed. There are no significant changes in the appearance of the right inguinal fluid collection with surrounding calcifications although this is partially imaged today less completely so than compared to the prior exam bone window technique throughout the examination shows no change in the osseous structures. IMPRESSION: Stable chronic changes as described above. There is no evidence of acute disease. <Electronically signed by Kristian Martines > 04/23/21 [id number]
--- NOTE | 2021-04-23 14:25 | REP ---
INDICATION: LYMPHOMA COMPARISON: Multiple latest a 14 20 TECHNIQUE: Standard helical technique after the intravenous administration of 100 cc Isovue 370 FINDINGS: In the right anterior mediastinum seemingly confined to the anterior pericardial adipose tissue note is again made of a nodular density which today measures approximately 3.1 x 1.8 x 2.3 cm previously 2.2 x 1.6 x 1.2 cm. In addition, there is a new soft tissue density in the anterior mediastinum which is predominantly right-sided but abuts the anterior junction. This measures approximately 3.9 by 2.3 cm. There are no pleural or pericardial effusions. There is no significant change in appearance of the imaged osseous structures. Evaluation of the lung espinosa shows no new abnormal nodules, masses, or opacities. There is stable cylindrical bronchiectasis. IMPRESSION: Anterior mediastinal soft tissue densities as described above concerning for recurrent disease. Close follow-up is recommended. Follow-up with PET-CT is suggested. <Electronically signed by Kristian Martines > 04/23/21 [id number]
--- NOTE | 2021-04-23 14:37 | REPVR ---
PROCEDURE INFORMATION: Exam: CT Neck With Contrast Exam date and time: 04/23/2021 1:49 PM Age: 76 years old Clinical indication: Pain; Other: Lymphoma TECHNIQUE: Imaging protocol: Computed tomography images of the neck with contrast. Radiation optimization: All CT scans at this facility use at least one of these dose optimization techniques: automated exposure control; mA and/or kV adjustment per patient size (includes targeted exams where dose is matched to clinical indication); or iterative reconstruction. Contrast material: ISOVUE 370; Contrast volume: 100 ml; Contrast route: INTRAVENOUS (IV); COMPARISON: 1. CT Chest with contrast 03/24/2020 1:51 PM 2. PET/CT Skull/mid thigh 08/31/2019 12:23:55 PM FINDINGS: Nasopharynx: Unremarkable. Oropharynx: Unremarkable. No significant tonsillar enlargement. Hypopharynx: Unremarkable. Larynx: Unremarkable. Normal epiglottis. Retropharyngeal space: Unremarkable. Submandibular/Parotid glands: Normal. Glands are normal in size. Thyroid: Normal. No enlarged or calcified nodules. Lymph nodes: See "Soft tissues" finding. Trachea: Visualized trachea is unremarkable. Lungs: Unremarkable as visualized. Bones/joints: Bone mineralization is decreased, suggestive of osteopenia. No acute fracture is identified. Severe facet arthropathy is noted in the upper/mid cervical spine. Vasculature: Atherosclerotic calcifications are noted within the aortic arch and its branches. Atherosclerotic calcifications are present at the carotid bifurcations. There appears to be less than 50% stenosis of the proximal left internal carotid artery. However, there is possible severe stenosis of the right carotid bifurcation. A follow-up carotid ultrasound is recommended. Soft tissues: There is a new 2.5 x 2.2 x 1.7 cm soft tissue mass within the inferior right neck near the thoracic inlet. The mass is just posterolateral to the right lobe of the thyroid and posterior to the right jugular vein and common carotid artery. Mild surrounding inflammation is present. An adjacent 16 x 10 x 6 mm satellite nodule or lymph node is noted along the lateral aspect of the mass. A right internal jugular Port-A-Cath is present. The distal tip is below the field of view on this exam. IMPRESSION: New 2.5 x 2.2 x 1.7 cm soft tissue mass within the inferior right neck near the thoracic inlet. The mass is just posterolateral to the right lobe of the thyroid and posterior to the right jugular vein and common carotid artery. Mild surrounding inflammation is present. An adjacent 16 x 10 x 6 mm satellite nodule or lymph node is noted along the lateral aspect of the mass. Recurrent malignancy is most likely. Electronically signed by: Edwin Burciaga On 04/23/2021 14:36:48 PM
== END ==
LOC: M RAD 12:13
PROVIDERS: ATTEND Specialist
DX: I89.0 Lymphedema, not elsewhere classified (principal)
CPT/HCPCS: 70491; 71260; 74177; Q9963; Q9967

== ENCOUNTER → 2021-05-14 | Outpatient (CLI) | payer MEDICARE, BC, OTHER ==
[~2021-05-14] MED LIST changes: +BIOT1000 PO; -GASTROGRAFIN SOLUTION 30ML (Q9963) As Ordered ONE; -ISOVUE-370 76% 100ML VIAL As Ordered ONE
--- NOTE | 2021-05-15 09:25 | REP ---
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 COMPARISON: Multiple prior PET CTs the latest 08/31/2019. Latest prior CT neck chest abdomen and pelvis 04/23/2021 TECHNIQUE: After the intravenous administration of 8.85 mCi of FDG 18 triplane whole-body PET-CT was performed from the skull base to the mid thigh FINDINGS: The hypermetabolic lesion seen previously in the deep lobe of the parotid gland on the right has decreased in size when comparing the nondiagnostic CT component of the prior PET-CT of 08/31/2019 to the diagnostic contrast-enhanced CT of the neck obtained 04/23/2021. It is hypermetabolic activity, however, is persistent and today having a maximal SUV value of 3.0. The right neck root mass seen at the level of the thoracic inlet on the neck CT of 04/23/2021 is hypermetabolic and represents a change compared to the prior exam. This region has a maximal SUV value of 14.08. This mass lesion is immediately posterior to the right carotid artery and displaces it anteriorly. It may be invading or originating from the right carotid space. There is new right anterior mediastinal hypermetabolic activity which is anterior to the ascending aorta at the level of the manubriosternal junction. This was described on the contrast-enhanced CT examination of the chest of 04/23/2021 and when today's CT component of this exam is compared to that exam it does not appear to be significantly changed. This region has a maximal SUV value of 8.66. There is an additional right anterior substernal soft tissue density which abuts the pericardium this was also described on the prior CT of the chest of 04/23/2021 and appears unchanged when the CT component of today's exam is compared to that, however, it has increased significantly compared to the chest CT of 03/24/2020 and the PET-CT of 08/31/2019 where as before this region was not abnormally hypermetabolic and today this region has a maximal SUV value of 19.95. Scattered areas of hypermetabolism are again seen in the spine and again likely secondary to chemo reactive change. This has a maximal SUV value of 3.95. No other areas of abnormal hypermetabolic activity are seen in the neck, chest, abdomen, or pelvis. IMPRESSION: 1. Decrease in size in the right parotid gland lesion which remains hypermetabolic as described above. 2. New right-sided neck and right-sided anterior mediastinal mass density/lymphadenopathy with hypermetabolism as described above and consistent with recurrent disease. 3. Other findings as described above. <Electronically signed by Kristian Martines > 05/15/21 [id number]
== END ==
LOC: M PLARAD 14:28
PROVIDERS: ATTEND Nurse Practitioner Adult Health
DX: C82.95 Follicular lymphoma, unspecified, lymph nodes of inguinal region and lower limb (principal)
CPT/HCPCS: 78815; A9552

== ENCOUNTER → 2021-06-06 | Outpatient (CLI) | payer MEDICARE, BC, OTHER ==
[~2021-06-06] MED LIST changes: +LIDOCAINE 1% MDV 20ML VIAL As Ordered ONE; -MAGN400T3 PO; +MAGN400T33 PO
[2021-06-06 10:30] VITALS: BP 123/64
--- NOTE | 2021-06-06 18:51 | REP ---
INDICATION: RT NECK MASS. COMPARISON: None. TECHNIQUE: The procedure was performed by CHELSIE Chavez, under the direct supervision of Dr. Lowery. The risks and benefits of the procedure were explained to the patient and an informed consent was obtained both verbally and written. Directly prior to the start of the procedure a formal time-out was completed in the procedure room. FINDINGS: CT guidance the right neck lymph node was localized. The skin was prepped and draped in a sterile fashion. 10 mL of 1% lidocaine was used as a local anesthetic. Using CT guidance a 19/20 gauge coaxial needle biopsy system was inserted and advanced into the right neck lymph node. 6 core biopsy specimens were obtained. Four specimens were sent to our lab here, and remaining 2 were sent out in RPMI solution, for further testing. The patient tolerated the procedure well and there were no immediate complications. After the appropriate amount of monitored convalescence the patient was discharged from the department. IMPRESSION: 1. CT guided right neck lymph node biopsy. <Electronically signed by Renee Ibrahim > 06/06/21 [id number] <Electronically signed by Grant Lowery > 06/06/21 [id number]
== END ==
LOC: M IRPRO 08:14
PROVIDERS: ATTEND Nurse Practitioner Adult Health
DX: C82.90 Follicular lymphoma, unspecified, unspecified site (principal)

== ENCOUNTER 2021-08-22 10:52 | Day surgery (SDC) | payer MEDICARE, BC, OTHER ==
[~2021-08-22] VITALS: Ht 160 cm; Wt 97.1 kg
[~2021-08-22 10:52] MED LIST changes: -LIDOCAINE 1% MDV 20ML VIAL As Ordered ONE; +LR 1,000 ML IV ONE; +POTA-151 PO; -POTA20TA6 PO; -PROC10TA4 PO; +PROC10TA5 PO
[2021-08-22] MEDS ORDERED: LIDOCAINE 2% 100MG/5ML SDV (FOR ANES.) As Ordered ONE (12:04)
[2021-08-22] MEDS ORDERED: fentaNYL 250 MCG/5 ML INJECTION (J3010) As Ordered ONE (12:04)
[2021-08-22] MEDS ORDERED: MIDAZOLAM INJ 2MG/2ML VIAL (J2250 PER 1MG) As Ordered ONE (12:04)
[2021-08-22] MEDS ORDERED: propofoL 200 MG/20 ML VIAL As Ordered ONE (12:04)
[2021-08-22] MEDS ORDERED: SUCCINYLCHOLINE 100 MG/5 ML SYRINGE (J0330) As Ordered ONE (12:04)
[2021-08-22] MEDS ORDERED: BACITRACIN OINTMENT 30GM TUBE As Ordered ONE (12:54)
[2021-08-22] MEDS ORDERED: LIDOCAINE W/EPINEPHRINE 1% 20ML VIAL As Ordered ONE (12:55)
[2021-08-22] MEDS ORDERED: PHENYLephrine 500MCG 5ML (100MCG/ML) SYRINGE As Ordered ONE (13:57)
[2021-08-22] MEDS ORDERED: ONDANSETRON 4MG/2ML VIAL As Ordered ONE (15:03)
[2021-08-22] MEDS ORDERED: ACETAMINOPHEN 1000MG 100ML IV BTL (OFIRMEV) (J0131 PER 10MG) As Ordered ONE (15:03)
[2021-08-22] MEDS ORDERED: dexameTHASONE 4 MG/ML 1ML VIAL (J1100 PER 1MG) As Ordered ONE (15:03)
[2021-08-22] MEDS ORDERED: KETOROLAC 60MG 2ML VIAL As Ordered ONE (15:03)
[2021-08-22] MEDS ORDERED: KETOROLAC 30 MG/ML 1ML VIAL IV PRN (15:05)
[2021-08-22] MEDS ORDERED: oxyCODONE 5MG TAB PO PRN (15:35)
[2021-08-22] MEDS ORDERED: ONDANSETRON 4MG/2ML VIAL IV PRN (15:35)
[2021-08-22] MEDS ORDERED: LR 1,000 ML IV SCH (15:35)
[2021-08-22] MEDS ORDERED: HYDROMORPHONE HCL 0.5 MG/ 0.5 ML SYRINGE (J1170 PER 1) IV PRN (15:35)
[2021-08-22] MEDS ORDERED: fentaNYL 100 MCG/2 ML INJECTION (J3010) IV PRN (15:35)
[2021-08-22] MEDS ORDERED: fentaNYL 100 MCG/2 ML INJECTION (J3010) As Ordered ONE (15:39)
[2021-08-22 16:33] VITALS: BP 113/58
[2021-08-22] MEDS ORDERED: ACET1TAB16 (22:21)
[2021-08-23] MEDS ORDERED: POTA-151 PO (13:59)
== END 2021-08-22 16:56 | disposition home or self-care (01) ==
LOC: M SDC 10:52
PROVIDERS: ATTEND Otolaryngology
DX: C85.90 Non-Hodgkin lymphoma, unspecified, unspecified site (principal); I50.9 Heart failure, unspecified; R60.0 Localized edema; K21.9 Gastro-esophageal reflux disease without esophagitis; Z86.718 Personal history of other venous thrombosis and embolism; J44.9 Chronic obstructive pulmonary disease, unspecified; N39.3 Stress incontinence (female) (male); Z92.21 Personal history of antineoplastic chemotherapy; Z92.3 Personal history of irradiation; Z87.891 Personal history of nicotine dependence; Z88.1 Allergy status to other antibiotic agents; Z88.2 Allergy status to sulfonamides; Z79.899 Other long term (current) drug therapy; Z79.51 Long term (current) use of inhaled steroids

== ENCOUNTER 2021-08-22 22:08 | Emergency (ER) | payer MEDICARE, BC, OTHER ==
[~2021-08-22] VITALS: Ht 160 cm; Wt 97.3 kg
[~2021-08-22 22:08] MED LIST changes: -LR 1,000 ML IV ONE
[2021-08-22] MEDS ORDERED: ACET1TAB16 (22:21)
[2021-08-23 01:06] VITALS: BP 155/71
[2021-08-23] MEDS ORDERED: POTA-151 PO (13:59)
== END 2021-08-23 01:47 | disposition home or self-care (01) ==
LOC: M ED 22:08
DX: L76.22 Postprocedural hemorrhage of skin and subcutaneous tissue following other procedure (principal); I10 Essential (primary) hypertension; M19.90 Unspecified osteoarthritis, unspecified site; Z86.718 Personal history of other venous thrombosis and embolism; Z85.72 Personal history of non-Hodgkin lymphomas; Z79.899 Other long term (current) drug therapy; Z88.2 Allergy status to sulfonamides; Z88.1 Allergy status to other antibiotic agents; R22.1 Localized swelling, mass and lump, neck; C85.90 Non-Hodgkin lymphoma, unspecified, unspecified site; I50.9 Heart failure, unspecified; R60.0 Localized edema; K21.9 Gastro-esophageal reflux disease without esophagitis; M17.10 Unilateral primary osteoarthritis, unspecified knee; J44.9 Chronic obstructive pulmonary disease, unspecified; N39.3 Stress incontinence (female) (male); Z92.21 Personal history of antineoplastic chemotherapy; Z92.3 Personal history of irradiation; Z87.891 Personal history of nicotine dependence; Z79.51 Long term (current) use of inhaled steroids
CPT/HCPCS: 21550; 88307; 99283; J0131; J0330; J1100; J1885; J2250; J2370; J2405; J3010

== ENCOUNTER → 2021-09-26 | Outpatient (CLI) | payer MEDICARE, BC, OTHER ==
[~2021-09-26] MED LIST changes: +ACET1TAB16; +GASTROGRAFIN SOLUTION 30ML (Q9963) As Ordered ONE; +ISOVUE-370 76% 100ML VIAL As Ordered ONE; +OXYC1TAB23 PO
== END ==
LOC: M RAD 14:12
PROVIDERS: ATTEND Specialist
DX: C82.90 Follicular lymphoma, unspecified, unspecified site (principal)
CPT/HCPCS: 71260; 74177; Q9963; Q9967

== ENCOUNTER → 2021-09-28 | Outpatient (CLI) | payer MEDICARE, BC, OTHER ==
[~2021-09-28] MED LIST changes: -GASTROGRAFIN SOLUTION 30ML (Q9963) As Ordered ONE; -ISOVUE-370 76% 100ML VIAL As Ordered ONE
== END ==
LOC: M CARPUL 09:59
PROVIDERS: ATTEND Specialist
DX: C82.90 Follicular lymphoma, unspecified, unspecified site (principal); I34.0 Nonrheumatic mitral (valve) insufficiency

== ENCOUNTER 2021-10-08 14:23 | Inpatient (IN) | payer MEDICARE, BC, OTHER ==
[~2021-10-08] VITALS: Ht 162.6 cm; Wt 103.1 kg
[~2021-10-08 14:23] MED LIST changes: +ONDA-84 PO; +PRED50TA PO
[2021-10-08 20:32] LABS: RSV AMPLIFICATION NEGATIVE (NEGATIVE)
[2021-10-08] MEDS ORDERED: KCL 20MEQ IN 100ML SWI (KRUN) 20 MEQ in IV 1 EA IV ONE ×2 (21:40)
[2021-10-08] MEDS: NS 1,000 ML IV SCH (21:45)
[2021-10-08] MEDS ORDERED: HYDROMORPHONE HCL 0.5 MG/ 0.5 ML SYRINGE (J1170 PER 1) IV PRN (21:55)
[2021-10-08] MEDS ORDERED: PIPERACILLIN/TAZOBACTAM SOD 3.375 GM in D5W MINI-BAG PLUS 50 ML IV ONE (23:00)
[2021-10-08] MEDS ORDERED: MAGN400T35 PO (23:12)
[2021-10-08] MEDS ORDERED: OYST500T92 PO (23:12)
[2021-10-08] MEDS ORDERED: HOME MED LIST COMPLETE! XX SCH (23:15)
[2021-10-09] MEDS: KCL 10MEQ/100ML SWI (KRUN) 100 ML IV SCH ×4 (00:58→05:15)
[2021-10-09 01:10] VITALS: BP 120/59
[2021-10-09 06:00] VITALS: BP 112/56
[2021-10-09 06:33] LABS: HEMATOCRIT 33.1 % (36.0-47.0); HEMOGLOBIN 11.4 g/dl (12.0-15.5); MEAN CORPUSCULAR HEMOGLOBIN 28.1 pg (27.0-33.0); MEAN CORPUSCULAR HGB CONC 34.4 g/dl (32.0-36.5); MEAN CORPUSCULAR VOLUME 81.5 fl (80.0-96.0); PLATELET COUNT, AUTOMATED 125 10^3/uL (150-450); RED BLOOD COUNT 4.06 10^6/uL (4.00-5.40); WHITE BLOOD COUNT 8.4 10^3/uL (4.0-10.0)
[2021-10-09 07:07] LABS: ALBUMIN 2.4 GM/DL (3.2-5.2); BILIRUBIN,TOTAL 12.6 MG/DL (0.2-1.0); CREATININE FOR GFR 1.43 MG/DL (0.55-1.30); GLOMERULAR FILTRATION RATE 38.2 (>39); POTASSIUM SERUM 4.2 MEQ/L (3.5-5.1); TOTAL PROTEIN 4.5 GM/DL (6.4-8.2)
[2021-10-09] MEDS: NS 1,000 ML IV SCH ×3 (07:45→18:42)
[2021-10-09] MEDS ORDERED: FUROSEMIDE 40 MG TAB PO SCH (09:00)
[2021-10-09] MEDS ORDERED: CALCIUM/VITAMIN D 500 MG TAB PO SCH (09:00)
[2021-10-09] MEDS: ENOXAPARIN 40MG/0.4ML SYRINGE (J1650 PER 10MG) SC SCH (10:00)
[2021-10-09] MEDS ORDERED: oxyCODONE 5MG TAB PO PRN (14:50)
[2021-10-09] MEDS ORDERED: ONDANSETRON 4 MG TAB PO PRN (14:50)
[2021-10-09 15:37] VITALS: BP 138/54
[2021-10-09] MEDS: ASCORBIC ACID 500 MG TAB PO SCH (16:16)
[2021-10-09] MEDS: CYANOCOBALAMIN 500 MCG TAB PO SCH (16:16)
[2021-10-09] MEDS: CALCIUM/VITAMIN D 500 MG TAB PO SCH (16:16)
[2021-10-09 17:06] LABS: ALBUMIN 2.4 GM/DL (3.2-5.2); BILIRUBIN,TOTAL 13.2 MG/DL (0.2-1.0); CALCIUM LEVEL 8.5 MG/DL (8.8-10.2); CREATININE FOR GFR 1.6 MG/DL (0.55-1.30); GLOMERULAR FILTRATION RATE 33.5 (>39); POTASSIUM SERUM 3.6 MEQ/L (3.5-5.1); TOTAL PROTEIN 4.6 GM/DL (6.4-8.2)
[2021-10-09] MEDS: MAGNESIUM OXIDE 400MG TAB (MAG-OX) PO SCH (20:23)
[2021-10-09] MEDS: POTASSIUM CHLORIDE 10MEQ SR TABLET PO SCH (20:24)
[2021-10-09 22:00] VITALS: BP 140/90
[2021-10-09] MEDS: PROCHLORPERAZINE 5 MG TAB (S0183) PO PRN (23:22)
[2021-10-10] MEDS: ONDANSETRON 4MG/2ML VIAL IV PRN ×2 (01:41→12:46)
[2021-10-10] MEDS: NS 1,000 ML IV SCH ×3 (01:46→22:02)
[2021-10-10 05:41] LABS: HEMATOCRIT 31.3 % (36.0-47.0); HEMOGLOBIN 10.7 g/dl (12.0-15.5); MEAN CORPUSCULAR HEMOGLOBIN 28.1 pg (27.0-33.0); MEAN CORPUSCULAR HGB CONC 34.2 g/dl (32.0-36.5); MEAN CORPUSCULAR VOLUME 82.2 fl (80.0-96.0); PLATELET COUNT, AUTOMATED 121 10^3/uL (150-450); RED BLOOD COUNT 3.81 10^6/uL (4.00-5.40)
[2021-10-10 06:00] VITALS: BP 123/58
[2021-10-10 06:07] LABS: ALBUMIN 2.2 GM/DL (3.2-5.2); CALCIUM LEVEL 8.6 MG/DL (8.8-10.2); CREATININE FOR GFR 1.3 MG/DL (0.55-1.30); GLOMERULAR FILTRATION RATE 42.6 (>39); MAGNESIUM LEVEL 1.6 MG/DL (1.8-2.4); POTASSIUM SERUM 3.6 MEQ/L (3.5-5.1); TOTAL PROTEIN 4.2 GM/DL (6.4-8.2)
[2021-10-10] MEDS: CALCIUM/VITAMIN D 500 MG TAB PO SCH (09:04)
[2021-10-10] MEDS: ASCORBIC ACID 500 MG TAB PO SCH (09:04)
[2021-10-10] MEDS: CYANOCOBALAMIN 500 MCG TAB PO SCH (09:04)
[2021-10-10] MEDS: ENOXAPARIN 40MG/0.4ML SYRINGE (J1650 PER 10MG) SC SCH (09:04)
[2021-10-10] MEDS ORDERED: MAALOX 30 ML SUSP *UDC PO ONE (12:25)
[2021-10-10 14:00] VITALS: BP 122/73
[2021-10-10 14:13] LABS: INR 1.22; PROTHROMBIN TIME 15.8 SECONDS (12.7-14.5)
[2021-10-10 14:15] LABS: PARTIAL THROMBOPLASTIN TIME 90.8 SECONDS (25.9-37.0)
[2021-10-10 16:45] LABS: FERRITIN 804 NG/ML (8-252); HEPATITIS B SURFACE ANTIGEN NEGATIVE (NEGATIVE); IRON (FE) 58 UG/DL (50-170); TOTAL IRON BINDING CAPACITY 215 UG/DL (250-450)
[2021-10-10] MEDS: PROCHLORPERAZINE 5 MG TAB (S0183) PO PRN (17:56)
[2021-10-10] MEDS: MAALOX 30 ML SUSP *UDC PO PRN (20:31)
[2021-10-10] MEDS: POTASSIUM CHLORIDE 10MEQ SR TABLET PO SCH (20:32)
[2021-10-10] MEDS: MAGNESIUM OXIDE 400MG TAB (MAG-OX) PO SCH (20:32)
[2021-10-10 22:00] VITALS: BP 103/64
[2021-10-11 05:53] VITALS: BP 125/60
[2021-10-11 08:00] VITALS: BP 118/78
[2021-10-11 08:28] LABS: HEMATOCRIT 35.9 % (36.0-47.0); HEMOGLOBIN 12.1 g/dl (12.0-15.5); MEAN CORPUSCULAR HEMOGLOBIN 28.6 pg (27.0-33.0); MEAN CORPUSCULAR HGB CONC 33.7 g/dl (32.0-36.5); MEAN CORPUSCULAR VOLUME 84.9 fl (80.0-96.0); PLATELET COUNT, AUTOMATED 122 10^3/uL (150-450); RED BLOOD COUNT 4.23 10^6/uL (4.00-5.40); WHITE BLOOD COUNT 8.8 10^3/uL (4.0-10.0)
[2021-10-11] MEDS: CYANOCOBALAMIN 500 MCG TAB PO SCH (08:48)
[2021-10-11] MEDS: ASCORBIC ACID 500 MG TAB PO SCH (08:48)
[2021-10-11] MEDS: CALCIUM/VITAMIN D 500 MG TAB PO SCH (08:48)
[2021-10-11] MEDS: MAALOX 30 ML SUSP *UDC PO PRN ×2 (08:49→21:23)
[2021-10-11] MEDS: ENOXAPARIN 40MG/0.4ML SYRINGE (J1650 PER 10MG) SC SCH (08:49)
[2021-10-11 09:12] LABS: ALBUMIN 2.4 GM/DL (3.2-5.2); BILIRUBIN,TOTAL 14.8 MG/DL (0.2-1.0); CALCIUM LEVEL 8.5 MG/DL (8.8-10.2); CREATININE FOR GFR 1.24 MG/DL (0.55-1.30); MAGNESIUM LEVEL 1.9 MG/DL (1.8-2.4); POTASSIUM SERUM 3.9 MEQ/L (3.5-5.1); TOTAL PROTEIN 4.6 GM/DL (6.4-8.2)
[2021-10-11] MEDS: SODIUM CHLORIDE 0.9% INJ 10 ML SYR IV PRN (10:01)
[2021-10-11] MEDS: ONDANSETRON 4MG/2ML VIAL IV PRN (10:55)
[2021-10-11 13:09] LABS: ANTINUCLEAR ANTIBODIES DIRECT Negative (Negative); CERULOPLASMIN 43.1 mg/dL (19.0-39.0)
[2021-10-11 14:00] VITALS: BP 119/73
[2021-10-11 14:12] LABS: THYROID STIMULATING HORMONE 1.82 uIU/ML (0.358-3.740)
[2021-10-11 17:19] LABS: ANTI-MITOCHONDRIAL ANTIBODY <20.0 Units (0.0-20.0); TRANSFERRIN 173 mg/dL (192-364)
[2021-10-11] MEDS: POTASSIUM CHLORIDE 10MEQ SR TABLET PO SCH (20:32)
[2021-10-11] MEDS: MAGNESIUM OXIDE 400MG TAB (MAG-OX) PO SCH (20:32)
[2021-10-11 22:00] VITALS: BP 126/59
[2021-10-12 06:00] VITALS: BP 114/56
[2021-10-12 06:29] LABS: HEMATOCRIT 33.1 % (36.0-47.0); HEMOGLOBIN 11.2 g/dl (12.0-15.5); MEAN CORPUSCULAR HEMOGLOBIN 28.3 pg (27.0-33.0); MEAN CORPUSCULAR HGB CONC 33.8 g/dl (32.0-36.5); MEAN CORPUSCULAR VOLUME 83.6 fl (80.0-96.0); PLATELET COUNT, AUTOMATED 112 10^3/uL (150-450); RED BLOOD COUNT 3.96 10^6/uL (4.00-5.40)
[2021-10-12 06:43] LABS: INR 1.2; PROTHROMBIN TIME 15.6 SECONDS (12.7-14.5)
[2021-10-12 06:58] LABS: ALBUMIN 2.1 GM/DL (3.2-5.2); BILIRUBIN,TOTAL 15.3 MG/DL (0.2-1.0); CALCIUM LEVEL 8.2 MG/DL (8.8-10.2); CREATININE FOR GFR 1.04 MG/DL (0.55-1.30); GLOMERULAR FILTRATION RATE 55.1 (>39); POTASSIUM SERUM 3.9 MEQ/L (3.5-5.1); TOTAL PROTEIN 4.3 GM/DL (6.4-8.2)
[2021-10-12] MEDS: CYANOCOBALAMIN 500 MCG TAB PO SCH (09:44)
[2021-10-12] MEDS: ASCORBIC ACID 500 MG TAB PO SCH (09:44)
[2021-10-12] MEDS: FUROSEMIDE 40 MG TAB PO SCH (09:44)
[2021-10-12] MEDS: CALCIUM/VITAMIN D 500 MG TAB PO SCH (09:44)
[2021-10-12] MEDS: SODIUM CHLORIDE 0.9% INJ 10 ML SYR IV SCH (09:45)
[2021-10-12 10:00] VITALS: BP 113/43
[2021-10-12 10:52] VITALS: BP 96/52
[2021-10-12 13:30] VITALS: BP 111/44
[2021-10-12 14:00] VITALS: BP 101/70
[2021-10-12 17:10] LABS: LIVER-KIDNEY MICROSOMAL ABY <20.1 Units (0.0-20.0)
[2021-10-12] MEDS: SODIUM CHLORIDE 0.9% INJ 10 ML SYR IV PRN (17:59)
[2021-10-12] MEDS: ONDANSETRON 4MG/2ML VIAL IV PRN (17:59)
[2021-10-12] MEDS: MAALOX 30 ML SUSP *UDC PO PRN ×2 (18:00→21:10)
[2021-10-12] MEDS: POTASSIUM CHLORIDE 10MEQ SR TABLET PO SCH (20:23)
[2021-10-12] MEDS: MAGNESIUM OXIDE 400MG TAB (MAG-OX) PO SCH (20:24)
[2021-10-12 22:00] VITALS: BP 154/62
[2021-10-13 06:00] VITALS: BP 121/67
[2021-10-13 06:01] LABS: HEMATOCRIT 33.4 % (36.0-47.0); HEMOGLOBIN 11.4 g/dl (12.0-15.5); MEAN CORPUSCULAR HEMOGLOBIN 28.8 pg (27.0-33.0); MEAN CORPUSCULAR HGB CONC 34.1 g/dl (32.0-36.5); MEAN CORPUSCULAR VOLUME 84.3 fl (80.0-96.0); PLATELET COUNT, AUTOMATED 108 10^3/uL (150-450); RED BLOOD COUNT 3.96 10^6/uL (4.00-5.40); WHITE BLOOD COUNT 8.5 10^3/uL (4.0-10.0)
[2021-10-13 06:19] LABS: INR 1.18; PROTHROMBIN TIME 15.4 SECONDS (12.7-14.5)
[2021-10-13 06:38] LABS: ALBUMIN 2.1 GM/DL (3.2-5.2); BILIRUBIN,TOTAL 18.2 MG/DL (0.2-1.0); CALCIUM LEVEL 8.3 MG/DL (8.8-10.2); CREATININE FOR GFR 1.26 MG/DL (0.55-1.30); GLOMERULAR FILTRATION RATE 44.2 (>39)
[2021-10-13] MEDS: CALCIUM/VITAMIN D 500 MG TAB PO SCH (09:29)
[2021-10-13] MEDS: FUROSEMIDE 40 MG TAB PO SCH (09:29)
[2021-10-13] MEDS: CYANOCOBALAMIN 500 MCG TAB PO SCH (09:29)
[2021-10-13] MEDS: PROCHLORPERAZINE 5 MG TAB (S0183) PO PRN (09:30)
[2021-10-13] MEDS: SODIUM CHLORIDE 0.9% INJ 10 ML SYR IV SCH (09:30)
[2021-10-13] MEDS: ASCORBIC ACID 500 MG TAB PO SCH (09:30)
[2021-10-13] MEDS: ONDANSETRON 4MG/2ML VIAL IV PRN (12:37)
[2021-10-13] MEDS: SODIUM CHLORIDE 0.9% INJ 10 ML SYR IV PRN (12:38)
[2021-10-13 14:00] VITALS: BP 119/63
[2021-10-13] MEDS: MAALOX 30 ML SUSP *UDC PO PRN (19:10)
[2021-10-13] MEDS: MAGNESIUM OXIDE 400MG TAB (MAG-OX) PO SCH (20:13)
[2021-10-13] MEDS: POTASSIUM CHLORIDE 10MEQ SR TABLET PO SCH (20:19)
[2021-10-13 22:00] VITALS: BP 123/59
[2021-10-14 06:00] VITALS: BP 124/57
[2021-10-14 06:24] LABS: HEMATOCRIT 35.2 % (36.0-47.0); HEMOGLOBIN 12.1 g/dl (12.0-15.5); MEAN CORPUSCULAR HEMOGLOBIN 28.8 pg (27.0-33.0); MEAN CORPUSCULAR HGB CONC 34.4 g/dl (32.0-36.5); MEAN CORPUSCULAR VOLUME 83.8 fl (80.0-96.0); PLATELET COUNT, AUTOMATED 106 10^3/uL (150-450); WHITE BLOOD COUNT 10.1 10^3/uL (4.0-10.0)
[2021-10-14 06:39] LABS: INR 1.22; PROTHROMBIN TIME 15.8 SECONDS (12.7-14.5)
[2021-10-14 07:31] LABS: ALBUMIN 2.3 GM/DL (3.2-5.2); BILIRUBIN,TOTAL 21.5 MG/DL (0.2-1.0); CALCIUM LEVEL 8.6 MG/DL (8.8-10.2); CREATININE FOR GFR 1.53 MG/DL (0.55-1.30); GLOMERULAR FILTRATION RATE 35.3 (>39); MAGNESIUM LEVEL 2.2 MG/DL (1.8-2.4); POTASSIUM SERUM 4.7 MEQ/L (3.5-5.1); TOTAL PROTEIN 4.2 GM/DL (6.4-8.2)
[2021-10-14] MEDS: FUROSEMIDE 40 MG TAB PO SCH ×2 (09:00→09:19)
[2021-10-14] MEDS: CYANOCOBALAMIN 500 MCG TAB PO SCH (09:19)
[2021-10-14] MEDS: ASCORBIC ACID 500 MG TAB PO SCH (09:19)
[2021-10-14] MEDS: CALCIUM/VITAMIN D 500 MG TAB PO SCH (09:19)
[2021-10-14] MEDS: ENOXAPARIN 40MG/0.4ML SYRINGE (J1650 PER 10MG) SC SCH ×2 (09:21→09:58)
[2021-10-14] MEDS: SODIUM CHLORIDE 0.9% INJ 10 ML SYR IV SCH (09:25)
[2021-10-14] MEDS: MAALOX 30 ML SUSP *UDC PO PRN ×2 (11:25→20:06)
[2021-10-14] MEDS: ONDANSETRON 4MG/2ML VIAL IV PRN (12:27)
[2021-10-14] MEDS: SODIUM CHLORIDE 0.9% INJ 10 ML SYR IV PRN (12:29)
[2021-10-14 14:00] VITALS: BP 114/48
[2021-10-14] MEDS ORDERED: CALCIUM CARBONATE 500 MG CHEW U/D PO ONE ×2 (18:00→23:10)
[2021-10-14] MEDS: POTASSIUM CHLORIDE 10MEQ SR TABLET PO SCH (20:06)
[2021-10-14] MEDS: MAGNESIUM OXIDE 400MG TAB (MAG-OX) PO SCH (20:06)
[2021-10-14 22:00] VITALS: BP 147/65
[2021-10-15 06:00] VITALS: BP 127/63
[2021-10-15 06:25] LABS: HEMATOCRIT 34.2 % (36.0-47.0); HEMOGLOBIN 11.7 g/dl (12.0-15.5); MEAN CORPUSCULAR HEMOGLOBIN 28.5 pg (27.0-33.0); MEAN CORPUSCULAR HGB CONC 34.2 g/dl (32.0-36.5); MEAN CORPUSCULAR VOLUME 83.4 fl (80.0-96.0); PLATELET COUNT, AUTOMATED 110 10^3/uL (150-450); WHITE BLOOD COUNT 9.5 10^3/uL (4.0-10.0)
[2021-10-15 06:33] LABS: INR 1.2; PROTHROMBIN TIME 15.6 SECONDS (12.7-14.5)
[2021-10-15 07:00] LABS: ALBUMIN 2.1 GM/DL (3.2-5.2); BILIRUBIN,TOTAL 21.8 MG/DL (0.2-1.0); CALCIUM LEVEL 8.5 MG/DL (8.8-10.2); GLOMERULAR FILTRATION RATE 25.9 (>39); MAGNESIUM LEVEL 2.4 MG/DL (1.8-2.4); POTASSIUM SERUM 4.9 MEQ/L (3.5-5.1); TOTAL PROTEIN 4.1 GM/DL (6.4-8.2)
[2021-10-15] MEDS ORDERED: FUROSEMIDE 40MG/4ML VIAL (J1940) IV ONE (08:10)
[2021-10-15] MEDS: SODIUM CHLORIDE 0.9% INJ 10 ML SYR IV SCH (08:39)
[2021-10-15] MEDS: CYANOCOBALAMIN 500 MCG TAB PO SCH (08:40)
[2021-10-15] MEDS: CALCIUM/VITAMIN D 500 MG TAB PO SCH (08:40)
[2021-10-15] MEDS: ASCORBIC ACID 500 MG TAB PO SCH (08:40)
[2021-10-15] MEDS ORDERED: LIDOCAINE 1% MDV 20ML VIAL As Ordered ONE (10:41)
[2021-10-15 14:00] VITALS: BP 113/48
[2021-10-15] MEDS: SODIUM CHLORIDE 0.9% INJ 10 ML SYR IV PRN (15:10)
[2021-10-15] MEDS: ONDANSETRON 4MG/2ML VIAL IV PRN (15:11)
[2021-10-15] MEDS: MAALOX 30 ML SUSP *UDC PO PRN ×2 (15:11→22:42)
[2021-10-15] MEDS ORDERED: CALCIUM CARBONATE 500 MG CHEW U/D PO ONE (19:45)
[2021-10-15] MEDS: MAGNESIUM OXIDE 400MG TAB (MAG-OX) PO SCH (20:01)
[2021-10-15] MEDS: POTASSIUM CHLORIDE 10MEQ SR TABLET PO SCH (20:01)
[2021-10-15 22:00] VITALS: BP 115/49
[2021-10-16 06:00] VITALS: BP 115/50
[2021-10-16 06:29] LABS: MEAN CORPUSCULAR HEMOGLOBIN 29.2 pg (27.0-33.0); MEAN CORPUSCULAR HGB CONC 34.2 g/dl (32.0-36.5); MEAN CORPUSCULAR VOLUME 85.4 fl (80.0-96.0); PLATELET COUNT, AUTOMATED 124 10^3/uL (150-450); RED BLOOD COUNT 4.45 10^6/uL (4.00-5.40); WHITE BLOOD COUNT 9.8 10^3/uL (4.0-10.0)
[2021-10-16 06:57] LABS: INR 1.13; PROTHROMBIN TIME 14.9 SECONDS (12.7-14.5)
[2021-10-16 07:16] LABS: ALBUMIN 2.3 GM/DL (3.2-5.2); CALCIUM LEVEL 9.1 MG/DL (8.8-10.2); CREATININE FOR GFR 2.19 MG/DL (0.55-1.30); GLOMERULAR FILTRATION RATE 23.3 (>39); MAGNESIUM LEVEL 2.7 MG/DL (1.8-2.4); POTASSIUM SERUM 4.4 MEQ/L (3.5-5.1); TOTAL PROTEIN 4.8 GM/DL (6.4-8.2)
[2021-10-16] MEDS: ONDANSETRON 4MG/2ML VIAL IV PRN (08:17)
[2021-10-16] MEDS: MAALOX 30 ML SUSP *UDC PO PRN ×3 (08:17→19:59)
[2021-10-16] MEDS: CYANOCOBALAMIN 500 MCG TAB PO SCH (08:18)
[2021-10-16] MEDS: CALCIUM CARBONATE 500 MG CHEW U/D PO PRN ×2 (08:18→22:30)
[2021-10-16] MEDS: CALCIUM/VITAMIN D 500 MG TAB PO SCH (08:18)
[2021-10-16] MEDS: SODIUM CHLORIDE 0.9% INJ 10 ML SYR IV SCH (08:19)
[2021-10-16] MEDS: ASCORBIC ACID 500 MG TAB PO SCH (08:21)
[2021-10-16] MEDS: FUROSEMIDE 40 MG TAB PO SCH (08:21)
[2021-10-16] MEDS: NS 1,000 ML IV SCH ×2 (09:22→17:54)
[2021-10-16 14:00] VITALS: BP 111/44
[2021-10-16] MEDS: POTASSIUM CHLORIDE 10MEQ SR TABLET PO SCH (20:00)
[2021-10-16] MEDS: MAGNESIUM OXIDE 400MG TAB (MAG-OX) PO SCH (21:00)
[2021-10-16 22:00] VITALS: BP 122/59
[2021-10-17] MEDS: MAALOX 30 ML SUSP *UDC PO PRN ×3 (00:20→13:56)
[2021-10-17] MEDS: NS 1,000 ML IV SCH ×2 (04:05→14:25)
[2021-10-17 06:00] VITALS: BP 123/47
[2021-10-17 06:31] LABS: INR 1.21; PROTHROMBIN TIME 15.7 SECONDS (12.7-14.5)
[2021-10-17] MEDS: CALCIUM/VITAMIN D 500 MG TAB PO SCH (08:46)
[2021-10-17] MEDS: CYANOCOBALAMIN 500 MCG TAB PO SCH (08:46)
[2021-10-17] MEDS: ASCORBIC ACID 500 MG TAB PO SCH (08:46)
[2021-10-17] MEDS: SODIUM CHLORIDE 0.9% INJ 10 ML SYR IV SCH (08:51)
[2021-10-17 09:05] LABS: HEMATOCRIT 35.8 % (36.0-47.0); HEMOGLOBIN 12.2 g/dl (12.0-15.5); MEAN CORPUSCULAR HEMOGLOBIN 29.3 pg (27.0-33.0); MEAN CORPUSCULAR HGB CONC 34.1 g/dl (32.0-36.5); MEAN CORPUSCULAR VOLUME 85.9 fl (80.0-96.0); PLATELET COUNT, AUTOMATED 106 10^3/uL (150-450); RED BLOOD COUNT 4.17 10^6/uL (4.00-5.40); WHITE BLOOD COUNT 9.9 10^3/uL (4.0-10.0)
[2021-10-17 09:05] LABS: PARTIAL THROMBOPLASTIN TIME 77.6 SECONDS (25.9-37.0)
[2021-10-17 09:34] LABS: ALBUMIN 2.1 GM/DL (3.2-5.2); CALCIUM LEVEL 8.8 MG/DL (8.8-10.2); CREATININE FOR GFR 2.03 MG/DL (0.55-1.30); GLOMERULAR FILTRATION RATE 25.5 (>39); POTASSIUM SERUM 5.2 MEQ/L (3.5-5.1)
[2021-10-17] MEDS: CALCIUM CARBONATE 500 MG CHEW U/D PO PRN (09:43)
[2021-10-17] MEDS: ENOXAPARIN 40MG/0.4ML SYRINGE (J1650 PER 10MG) SC SCH (09:44)
[2021-10-17] MEDS ORDERED: HumuLIN R (REGULAR) INSULIN (NovoLIN R) **100U/ML** PER UNIT IV STA (10:44)
[2021-10-17] MEDS ORDERED: DEXTROSE 50% 50 ML SYRINGE IV STA (10:44)
[2021-10-17] MEDS ORDERED: OXYC-517 PO (10:52)
[2021-10-17 14:00] VITALS: BP 118/45
[2021-10-17] MEDS: ONDANSETRON 4MG/2ML VIAL IV PRN (17:16)
[2021-10-18] MEDS ORDERED: HEPARIN SOD (PORCINE) 5000UNITS/ML 1ML VIAL/SYRINGE SQ SCH (09:00)
== END 2021-10-17 17:39 | disposition short-term general hospital (02) | DRG 436 ==
LOC: M ED 14:23 → M ED INP 21:43 → M MSPAV 10-09 00:10
PROVIDERS: ADMIT Internal Medicine; ATTEND Internal Medicine
PROC: 0FB23ZX Excision of Left Lobe Liver, Percutaneous Approach, Diagnostic (ICD-10-PCS; principal; 2021-10-15 15:00)
DX: C78.7 Secondary malignant neoplasm of liver and intrahepatic bile duct (principal); C82.38 Follicular lymphoma grade IIIa, lymph nodes of multiple sites; N17.9 Acute kidney failure, unspecified; I50.32 Chronic diastolic (congestive) heart failure; Z98.49 Cataract extraction status, unspecified eye; Z87.891 Personal history of nicotine dependence; I48.0 Paroxysmal atrial fibrillation; E87.6 Hypokalemia; D69.6 Thrombocytopenia, unspecified; R74.01 Elevation of levels of liver transaminase levels; K80.20 Calculus of gallbladder without cholecystitis without obstruction; Z20.822 Contact with and (suspected) exposure to COVID-19; Z79.899 Other long term (current) drug therapy; Z79.52 Long term (current) use of systemic steroids; Z88.2 Allergy status to sulfonamides; Z88.8 Allergy status to other drugs, medicaments and biological substances

== ENCOUNTER 2021-11-08 19:45 | Observation (INO) | payer MEDICARE, BC, OTHER ==
[~2021-11-08] VITALS: Ht 160 cm; Wt 214.3 kg
[~2021-11-08 19:45] MED LIST changes: -ACET1TAB16; +ACET300T48; +MAGN400T35 PO; +OXYC-517 PO; +OYST500T92 PO
[2021-11-08] MEDS ORDERED: ISOVUE-370 76% 100ML VIAL As Ordered ONE (21:31)
[2021-11-08 21:36] LABS: BASO % 0.5 % (0.0-1.0); EOS % 0.3 % (0.0-3.0); HEMATOCRIT 28.2 % (36.0-47.0); HEMOGLOBIN 8.9 g/dl (12.0-15.5); LYMPH # 0.3 10^3/uL (1.5-5.0); LYMPH % 4.1 % (24.0-44.0); MEAN CORPUSCULAR HEMOGLOBIN 31.4 pg (27.0-33.0); MEAN CORPUSCULAR HGB CONC 31.6 g/dl (32.0-36.5); MEAN CORPUSCULAR VOLUME 99.6 fl (80.0-96.0); MONO # 0.7 10^3/uL (0.0-0.8); MONO % 8.8 % (2.0-8.0); NEUTROPHILS # 6.6 10^3/uL (1.5-8.5); NEUTROPHILS % 84.8 % (36.0-66.0); PLATELET COUNT, AUTOMATED 216 10^3/uL (150-450); RED BLOOD COUNT 2.83 10^6/uL (4.00-5.40); WHITE BLOOD COUNT 7.8 10^3/uL (4.0-10.0)
[2021-11-08 21:47] LABS: INR 1.45; PROTHROMBIN TIME 18.1 SECONDS (12.7-14.5)
[2021-11-08 21:58] LABS: RSV AMPLIFICATION NEGATIVE (NEGATIVE)
[2021-11-08 22:10] LABS: BILIRUBIN,DIRECT 3.4 MG/DL (0.0-0.2); BILIRUBIN,TOTAL 4.3 MG/DL (0.2-1.0); TOTAL PROTEIN 5.4 GM/DL (6.4-8.2)
[2021-11-09] MEDS ORDERED: NS 1,000 ML IV ONE (00:10)
[2021-11-09] MEDS ORDERED: C 50TAB PO (01:35)
[2021-11-09] MEDS ORDERED: CYAN500T3 PO (01:35)
[2021-11-09] MEDS ORDERED: POTA-151 PO (01:35)
[2021-11-09] MEDS ORDERED: FURO40TA2 PO (01:35)
[2021-11-09] MEDS ORDERED: BIOT1000 PO (01:35)
[2021-11-09] MEDS ORDERED: HOME MED LIST COMPLETE! XX SCH (01:40)
[2021-11-09] MEDS ORDERED: PROCHLORPERAZINE 5MG TAB PO PRN (02:40)
[2021-11-09] MEDS ORDERED: ONDANSETRON 4MG TAB PO PRN (02:40)
[2021-11-09 03:30] VITALS: BP 134/69
[2021-11-09] MEDS ORDERED: FUROSEMIDE 40 MG TAB PO SCH (09:00)
[2021-11-09] MEDS ORDERED: POTASSIUM CHLORIDE 10MEQ SR TABLET PO SCH (21:00)
== END 2021-11-09 10:55 | disposition home or self-care (01) ==
LOC: M ED 19:45 → M ED INP 19:46 → ENRESERV 11-09 02:03 → M 4MAIN 11-09 03:19
PROVIDERS: ADMIT Family Medicine; ATTEND Family Medicine
DX: T85.520A Displacement of bile duct prosthesis, initial encounter (principal); Y73.2 Prosthetic and other implants, materials and accessory gastroenterology and urology devices associated with adverse incidents; C82.38 Follicular lymphoma grade IIIa, lymph nodes of multiple sites; C78.7 Secondary malignant neoplasm of liver and intrahepatic bile duct; J44.9 Chronic obstructive pulmonary disease, unspecified; I50.30 Unspecified diastolic (congestive) heart failure; D69.6 Thrombocytopenia, unspecified; I11.0 Hypertensive heart disease with heart failure; Z79.899 Other long term (current) drug therapy; Z88.2 Allergy status to sulfonamides; Z88.1 Allergy status to other antibiotic agents
CPT/HCPCS: 74177; 80047; 80076; 85025; 85610; 85730; 87631; 96360; 96361; 99285; G0378; Q9967

== ENCOUNTER → 2021-11-13 | Outpatient (POV) | payer MEDICARE, BC, OTHER ==
[~2021-11-13] VITALS: Ht 160 cm; Wt 96.8 kg
[~2021-11-13] MED LIST changes: +C 50TAB PO; +CYAN500T3 PO
[2021-11-13 11:25] VITALS: BP 133/62
== END ==
LOC: M IRPOV 11:18
PROVIDERS: ATTEND Radiology Diagnostic Radiology
DX: K83.1 Obstruction of bile duct (principal); R17 Unspecified jaundice; C82.32 Follicular lymphoma grade IIIa, intrathoracic lymph nodes; R10.11 Right upper quadrant pain; Z88.1 Allergy status to other antibiotic agents; Z88.2 Allergy status to sulfonamides; Z92.21 Personal history of antineoplastic chemotherapy

== ENCOUNTER → 2021-12-11 | Outpatient (POV) | payer MEDICARE, BC, OTHER ==
[~2021-12-11] VITALS: Ht 160 cm; Wt 90.0 kg
[~2021-12-11] MED LIST changes: +OLAN1TAB20; +PRED50TA
[2021-12-11 10:20] VITALS: BP 142/63
== END ==
LOC: M IRPOV 10:09
PROVIDERS: ATTEND Radiology Diagnostic Radiology
DX: Z48.815 Encounter for surgical aftercare following surgery on the digestive system (principal); Z93.4 Other artificial openings of gastrointestinal tract status; Z88.1 Allergy status to other antibiotic agents; Z88.2 Allergy status to sulfonamides

== ENCOUNTER → 2022-01-15 | Outpatient (CLI) | payer MEDICARE, BC, OTHER | LOC: M RAD 10:11 | PROVIDERS: ATTEND Radiology Diagnostic Radiology | DX: K80.20 Calculus of gallbladder without cholecystitis without obstruction (principal); R91.8 Other nonspecific abnormal finding of lung field; K74.60 Unspecified cirrhosis of liver; N20.0 Calculus of kidney ==

== ENCOUNTER → 2022-01-15 | Outpatient (POV) | payer MEDICARE, BC, OTHER ==
[~2022-01-15] VITALS: Ht 160 cm; Wt 85.4 kg
[2022-01-15 09:10] VITALS: BP 150/67
== END ==
LOC: M IRPOV 08:55
PROVIDERS: ATTEND Radiology Diagnostic Radiology
DX: L03.319 Cellulitis of trunk, unspecified (principal); K80.20 Calculus of gallbladder without cholecystitis without obstruction; R91.8 Other nonspecific abnormal finding of lung field; K74.60 Unspecified cirrhosis of liver; N20.0 Calculus of kidney; Z88.1 Allergy status to other antibiotic agents; Z88.2 Allergy status to sulfonamides; Z93.4 Other artificial openings of gastrointestinal tract status
CPT/HCPCS: 74150; G0463

== ENCOUNTER → 2022-02-18 | Outpatient (CLI) | payer MEDICARE, BC, OTHER ==
[~2022-02-18] MED LIST changes: +ISOVUE-300 61% 50ML VIAL As Ordered ONE; +LIDOCAINE 1% MDV 20ML VIAL As Ordered ONE; +MIDAZOLAM INJ 2MG/2ML VIAL (J2250 PER 1MG) As Ordered ONE; +NS 1,000 ML IV SCH; +cefTRIAXone SOD 1 GM in D5W MINI-BAG PLUS 50 ML IV ONE; +cefTRIAXone SOD 1GM VIAL (J0696 PER 250MG) As Ordered ONE; +diphenhydrAMINE 50MG/ML VIAL (J1200) As Ordered ONE; +fentaNYL 100 MCG/2 ML INJECTION As Ordered ONE
[2022-02-18 16:44] VITALS: BP 91/47
== END ==
LOC: M IRPRO 13:04
PROVIDERS: ATTEND Radiology Diagnostic Radiology
DX: K80.20 Calculus of gallbladder without cholecystitis without obstruction (principal); Z88.1 Allergy status to other antibiotic agents; Z88.2 Allergy status to sulfonamides; Z79.899 Other long term (current) drug therapy
CPT/HCPCS: 47536; 99152; 99153; C1729; C1769; J0696; J1200; J2250; J3010; Q9967

== ENCOUNTER → 2022-03-18 | Outpatient (CLI) | payer MEDICARE, BC, OTHER ==
[~2022-03-18] MED LIST changes: -ISOVUE-300 61% 50ML VIAL As Ordered ONE; +LEVO1TAB40 PO; -LEVO750T13 PO; -LIDOCAINE 1% MDV 20ML VIAL As Ordered ONE; -MIDAZOLAM INJ 2MG/2ML VIAL (J2250 PER 1MG) As Ordered ONE; -NS 1,000 ML IV SCH; -cefTRIAXone SOD 1 GM in D5W MINI-BAG PLUS 50 ML IV ONE; -cefTRIAXone SOD 1GM VIAL (J0696 PER 250MG) As Ordered ONE; -diphenhydrAMINE 50MG/ML VIAL (J1200) As Ordered ONE; -fentaNYL 100 MCG/2 ML INJECTION As Ordered ONE
== END ==
LOC: M PLARAD 15:52
PROVIDERS: ATTEND Specialist
DX: C82.95 Follicular lymphoma, unspecified, lymph nodes of inguinal region and lower limb (principal)
CPT/HCPCS: 78815; A9552

== ENCOUNTER → 2022-03-26 | Outpatient (POV) | payer MEDICARE, BC, OTHER ==
[~2022-03-26] VITALS: Ht 160 cm; Wt 78.6 kg
[2022-03-26 15:30] VITALS: BP 130/88
== END ==
LOC: M IRPOV 15:23
PROVIDERS: ATTEND Radiology Diagnostic Radiology
DX: Z43.4 Encounter for attention to other artificial openings of digestive tract (principal); K80.21 Calculus of gallbladder without cholecystitis with obstruction; Z88.1 Allergy status to other antibiotic agents; Z88.2 Allergy status to sulfonamides

== ENCOUNTER → 2022-05-13 | Outpatient (REF) | payer MEDICARE, BC, OTHER ==
[~2022-05-13] MED LIST changes: +[UNRECOGNIZED DRUG - SUPPLY]
[2022-05-13 11:41] LABS: BLOOD UREA NITROGEN 16 MG/DL (7-18); CALCIUM LEVEL 9.5 MG/DL (8.8-10.2); CARBON DIOXIDE LEVEL 30 MEQ/L (21-32); CHLORIDE LEVEL 104 MEQ/L (98-107); CREATININE FOR GFR 0.79 MG/DL (0.55-1.30); GLOMERULAR FILTRATION RATE > 60.0 (>39); GLUCOSE, FASTING 126 MG/DL (70-100); MAGNESIUM LEVEL 1.5 MG/DL (1.8-2.4); SODIUM LEVEL 138 MEQ/L (136-145)
== END ==
LOC: M LAB REF 10:48
PROVIDERS: ATTEND Internal Medicine Cardiovascular Disease
DX: I49.3 Ventricular premature depolarization (principal)

== ENCOUNTER → 2022-05-20 | Outpatient (CLI) | payer MEDICARE, BC, OTHER ==
[~2022-05-20] MED LIST changes: +ISOVUE-300 61% 50ML VIAL As Ordered ONE
== END ==
LOC: M RADPRO 10:10
PROVIDERS: ATTEND Surgery
DX: K80.20 Calculus of gallbladder without cholecystitis without obstruction (principal)
CPT/HCPCS: 47531; Q9967

== ENCOUNTER → 2022-07-10 | Outpatient (CLI) | payer MEDICARE, BC, OTHER ==
[~2022-07-10] MED LIST changes: +ASCO500C3 PO; -ISOVUE-300 61% 50ML VIAL As Ordered ONE; -PURE500C5 PO
== END ==
LOC: M LABSMTC 10:57
PROVIDERS: ATTEND Anesthesiology
DX: Z01.812 Encounter for preprocedural laboratory examination (principal); Z11.52 Encounter for screening for COVID-19

== ENCOUNTER 2022-07-15 09:27 | Inpatient (IN) | payer MEDICARE, BC, OTHER ==
[~2022-07-15] VITALS: Ht 160 cm; Wt 80.5 kg
[2022-07-15] VITALS (7 sets, daily range): BP systolic 98–125; BP diastolic 61–69
[~2022-07-15 09:27] MED LIST changes: +BUPIVACAINE HCL 0.25% 30ML VIAL As Ordered ONE; +CelecoXIB 400 MG CAP PO ONE; +INDOCYANINE GREEN 25MG VIAL (IC-GREEN) As Ordered ONE; +INDOCYANINE GREEN 25MG VIAL (IC-GREEN) IV ONE; +LIDOCAINE 1% SDV 30ML VIAL As Ordered ONE; +LIDOCAINE 2% 100MG/5ML SDV (FOR ANES.) As Ordered ONE; +ONDANSETRON 4MG 2ML VIAL As Ordered ONE; +ROCURONIUM BROMIDE 50 MG/5 ML VIAL As Ordered ONE; +cefoTEtan DISODIUM 2 GM in D5W MINI-BAG PLUS 50 ML IV ONE; +fentaNYL 100 MCG/2 ML INJECTION As Ordered ONE; +propofoL 200 MG/20 ML VIAL As Ordered ONE
[2022-07-15] MEDS ORDERED: LR 1,000 ML IV SCH ×2 (09:50→15:50)
[2022-07-15] MEDS ORDERED: METR-265 PO (10:06)
[2022-07-15] MEDS ORDERED: ePHEDrine SULFATE 25 MG/5 ML(5MG/ML) SYRINGE As Ordered ONE ×2 (11:10→12:25)
[2022-07-15] MEDS ORDERED: ROCURONIUM BROMIDE 50 MG/5 ML VIAL As Ordered ONE (13:25)
[2022-07-15] MEDS ORDERED: PHENYLephrine 500MCG 5ML (100MCG/ML) SYRINGE As Ordered ONE (14:11)
[2022-07-15] MEDS ORDERED: ACETAMINOPHEN 1000MG 100ML IV BAG As Ordered ONE (15:11)
[2022-07-15] MEDS ORDERED: SUGAMMADEX SODIUM 500 MG/5 ML VIAL (BRIDION) As Ordered ONE (15:21)
[2022-07-15] MEDS ORDERED: fentaNYL 100 MCG/2 ML INJECTION IV PRN (15:50)
[2022-07-15] MEDS ORDERED: HYDROMORPHONE HCL 0.5 MG/ 0.5 ML SYRINGE (J1170 PER 1) IV PRN (15:50)
[2022-07-15] MEDS: LR 1,000 ML IV SCH (15:50)
[2022-07-15] MEDS ORDERED: ONDANSETRON 4MG 2ML VIAL IV PRN ×2 (15:50)
[2022-07-15] MEDS ORDERED: MORPHINE 4 MG/ML 1ML VIAL IV PRN (15:50)
[2022-07-15] MEDS: oxyCODONE 5MG TAB PO PRN ×2 (16:19→17:16)
[2022-07-15] MEDS: POTASSIUM CHLORIDE 10MEQ SR TABLET PO SCH (21:05)
[2022-07-15] MEDS: MAGNESIUM OXIDE 400MG TAB (MAG-OX) PO SCH (21:05)
[2022-07-15] MEDS: PANTOPRAZOLE 40MG VIAL IV SCH (21:05)
[2022-07-15] MEDS: DOCUSATE SODIUM 100MG CAPSULE PO SCH (21:05)
[2022-07-15] MEDS: KETOROLAC 30 MG/ML 1ML VIAL IV PRN (21:06)
[2022-07-16] VITALS (10 sets, daily range): BP systolic 78–108; BP diastolic 38–62
[2022-07-16] MEDS: PERCOCET 5MG/325MG TAB PO PRN (00:58)
[2022-07-16] MEDS: LR 1,000 ML IV SCH ×3 (02:01→22:09)
[2022-07-16 06:14] LABS: BASO % 0.3 % (0.0-1.0); HEMATOCRIT 33.2 % (36.0-47.0); HEMOGLOBIN 10.5 g/dl (12.0-15.5); LYMPH # 0.9 10^3/uL (1.5-5.0); LYMPH % 12.1 % (24.0-44.0); MEAN CORPUSCULAR HEMOGLOBIN 27.5 pg (27.0-33.0); MEAN CORPUSCULAR HGB CONC 31.6 g/dl (32.0-36.5); MEAN CORPUSCULAR VOLUME 86.9 fl (80.0-96.0); MONO # 0.6 10^3/uL (0.0-0.8); MONO % 7.9 % (2.0-8.0); PLATELET COUNT, AUTOMATED 175 10^3/uL (150-450); RED BLOOD COUNT 3.82 10^6/uL (4.00-5.40); WHITE BLOOD COUNT 7.6 10^3/uL (4.0-10.0)
[2022-07-16 06:51] LABS: ALBUMIN 2.5 G/DL (3.2-5.2); ALKALINE PHOSPHATASE 158 U/L (46-116); ALT/SGPT 29 U/L (7.0-40); AST/SGOT 31 U/L (<34); BILIRUBIN,TOTAL 0.5 MG/DL (0.3-1.2); BLOOD UREA NITROGEN 19 MG/DL (9-23); CALCIUM LEVEL 8.5 MG/DL (8.3-10.6); CARBON DIOXIDE LEVEL 28 MMOL/L (20-31); CHLORIDE LEVEL 101 MMOL/L (98-107); CREATININE FOR GFR 0.94 MG/DL (0.55-1.30); GLOMERULAR FILTRATION RATE > 60.0 (>39); GLUCOSE, FASTING 163 MG/DL (74-106); POTASSIUM SERUM 4.8 MMOL/L (3.5-5.1); SODIUM LEVEL 138 MMOL/L (136-145); TOTAL PROTEIN 4.8 G/DL (5.7-8.2)
[2022-07-16] MEDS ORDERED: FUROSEMIDE 40 MG TAB PO SCH (09:00)
[2022-07-16] MEDS: DOCUSATE SODIUM 100MG CAPSULE PO SCH ×2 (09:28→22:08)
[2022-07-16] MEDS: CYANOCOBALAMIN 500 MCG TAB PO SCH (09:28)
[2022-07-16] MEDS: ENOXAPARIN 30MG/0.3ML SYRINGE (J1650 PER 10MG) SC SCH (09:29)
[2022-07-16 13:16] LABS: BASO % 0.3 % (0.0-1.0); EOS % 0.1 % (0.0-3.0); HEMATOCRIT 33.2 % (36.0-47.0); HEMOGLOBIN 10.5 g/dl (12.0-15.5); LYMPH # 1.1 10^3/uL (1.5-5.0); LYMPH % 13.3 % (24.0-44.0); MEAN CORPUSCULAR HEMOGLOBIN 27.8 pg (27.0-33.0); MEAN CORPUSCULAR HGB CONC 31.6 g/dl (32.0-36.5); MEAN CORPUSCULAR VOLUME 87.8 fl (80.0-96.0); MONO # 0.6 10^3/uL (0.0-0.8); NEUTROPHILS # 6.1 10^3/uL (1.5-8.5); NEUTROPHILS % 77.4 % (36.0-66.0); PLATELET COUNT, AUTOMATED 183 10^3/uL (150-450); RED BLOOD COUNT 3.78 10^6/uL (4.00-5.40); WHITE BLOOD COUNT 7.9 10^3/uL (4.0-10.0)
[2022-07-16] MEDS ORDERED: NS 500 ML IV ONE (13:45)
[2022-07-16 13:49] LABS: CPK CREATINE PHOSPHOKINASE 48 U/L (34-145)
[2022-07-16 13:52] LABS: ALBUMIN 2.5 G/DL (3.2-5.2); ALKALINE PHOSPHATASE 151 U/L (46-116); ALT/SGPT 28 U/L (7.0-40); AST/SGOT 24 U/L (<34); BILIRUBIN,TOTAL 0.4 MG/DL (0.3-1.2); BLOOD UREA NITROGEN 20 MG/DL (9-23); CALCIUM LEVEL 8.1 MG/DL (8.3-10.6); CARBON DIOXIDE LEVEL 27 MMOL/L (20-31); CHLORIDE LEVEL 102 MMOL/L (98-107); CK-MB VALUE MASS < 1.0 NG/ML (<3.6); CREATININE FOR GFR 0.94 MG/DL (0.55-1.30); GLOMERULAR FILTRATION RATE > 60.0 (>39); GLUCOSE, FASTING 113 MG/DL (74-106); MB/CK RELATIVE INDEX 2.08 (< OR =4); POTASSIUM SERUM 3.6 MMOL/L (3.5-5.1); SODIUM LEVEL 139 MMOL/L (136-145); TOTAL PROTEIN 4.8 G/DL (5.7-8.2)
[2022-07-16] MEDS: ACETAMINOPHEN TAB 650MG DOSE (2X325MG) PO PRN (16:14)
[2022-07-16] MEDS: PANTOPRAZOLE 40MG VIAL IV SCH (22:08)
[2022-07-16] MEDS: POTASSIUM CHLORIDE 10MEQ SR TABLET PO SCH (22:08)
[2022-07-16] MEDS: MAGNESIUM OXIDE 400MG TAB (MAG-OX) PO SCH (22:08)
[2022-07-16] MEDS: KETOROLAC 30 MG/ML 1ML VIAL IV PRN (22:09)
[2022-07-17 02:00] VITALS: BP 100/65
[2022-07-17 06:00] VITALS: BP 99/58
[2022-07-17 08:16] LABS: BASO % 0.6 % (0.0-1.0); EOS # 0.1 10^3/uL (0.0-0.5); EOS % 1.3 % (0.0-3.0); HEMATOCRIT 34.3 % (36.0-47.0); HEMOGLOBIN 10.6 g/dl (12.0-15.5); LYMPH # 1.3 10^3/uL (1.5-5.0); LYMPH % 18.8 % (24.0-44.0); MEAN CORPUSCULAR HEMOGLOBIN 27.5 pg (27.0-33.0); MEAN CORPUSCULAR HGB CONC 30.9 g/dl (32.0-36.5); MEAN CORPUSCULAR VOLUME 89.1 fl (80.0-96.0); MONO # 0.7 10^3/uL (0.0-0.8); MONO % 9.8 % (2.0-8.0); NEUTROPHILS # 4.7 10^3/uL (1.5-8.5); NEUTROPHILS % 68.5 % (36.0-66.0); PLATELET COUNT, AUTOMATED 173 10^3/uL (150-450); RED BLOOD COUNT 3.85 10^6/uL (4.00-5.40); WHITE BLOOD COUNT 6.9 10^3/uL (4.0-10.0)
[2022-07-17] MEDS: DOCUSATE SODIUM 100MG CAPSULE PO SCH ×2 (08:36→21:00)
[2022-07-17] MEDS: ENOXAPARIN 30MG/0.3ML SYRINGE (J1650 PER 10MG) SC SCH (08:43)
[2022-07-17] MEDS: CYANOCOBALAMIN 500 MCG TAB PO SCH (08:44)
[2022-07-17 08:55] VITALS: BP 100/55
[2022-07-17 09:07] LABS: BLOOD UREA NITROGEN 18 MG/DL (9-23); CALCIUM LEVEL 8.3 MG/DL (8.3-10.6); CARBON DIOXIDE LEVEL 26 MMOL/L (20-31); CHLORIDE LEVEL 108 MMOL/L (98-107); CREATININE FOR GFR 0.92 MG/DL (0.55-1.30); GLOMERULAR FILTRATION RATE > 60.0 (>39); GLUCOSE, FASTING 117 MG/DL (74-106); POTASSIUM SERUM 4.3 MMOL/L (3.5-5.1); SODIUM LEVEL 141 MMOL/L (136-145)
[2022-07-17 10:00] VITALS: BP 98/54
[2022-07-17 14:00] VITALS: BP 107/58
[2022-07-17] MEDS: KETOROLAC 30 MG/ML 1ML VIAL IV PRN (18:17)
[2022-07-17] MEDS: PANTOPRAZOLE 40MG VIAL IV SCH (21:47)
[2022-07-17] MEDS: POTASSIUM CHLORIDE 10MEQ SR TABLET PO SCH (21:47)
[2022-07-17] MEDS: MAGNESIUM OXIDE 400MG TAB (MAG-OX) PO SCH (21:47)
[2022-07-17 22:00] VITALS: BP 106/57
[2022-07-18] VITALS (10 sets, daily range): BP systolic 92–132; BP diastolic 48–71
[2022-07-18] MEDS: DOCUSATE SODIUM 100MG CAPSULE PO SCH ×4 (09:00→21:45)
[2022-07-18] MEDS: CYANOCOBALAMIN 500 MCG TAB PO SCH (09:03)
[2022-07-18] MEDS: ENOXAPARIN 30MG/0.3ML SYRINGE (J1650 PER 10MG) SC SCH (09:04)
[2022-07-18] MEDS ORDERED: PERCOCET PO (11:30)
[2022-07-18] MEDS ORDERED: ISOVUE-370 76% 100ML VIAL As Ordered ONE (12:27)
[2022-07-18] MEDS: ACETAMINOPHEN TAB 650MG DOSE (2X325MG) PO PRN (12:39)
[2022-07-18 12:52] LABS: BASO # 0.1 10^3/uL (0.0-0.2); BASO % 0.6 % (0.0-1.0); EOS # 0.1 10^3/uL (0.0-0.5); EOS % 0.4 % (0.0-3.0); HEMATOCRIT 37.5 % (36.0-47.0); HEMOGLOBIN 11.7 g/dl (12.0-15.5); LYMPH # 1.6 10^3/uL (1.5-5.0); LYMPH % 13.5 % (24.0-44.0); MEAN CORPUSCULAR HEMOGLOBIN 27.6 pg (27.0-33.0); MEAN CORPUSCULAR HGB CONC 31.2 g/dl (32.0-36.5); MEAN CORPUSCULAR VOLUME 88.4 fl (80.0-96.0); MONO # 0.8 10^3/uL (0.0-0.8); MONO % 7.1 % (2.0-8.0); NEUTROPHILS # 8.9 10^3/uL (1.5-8.5); NEUTROPHILS % 76.8 % (36.0-66.0); PLATELET COUNT, AUTOMATED 199 10^3/uL (150-450); RED BLOOD COUNT 4.24 10^6/uL (4.00-5.40); WHITE BLOOD COUNT 11.6 10^3/uL (4.0-10.0)
[2022-07-18] MEDS: KETOROLAC 30 MG/ML 1ML VIAL IV PRN (13:19)
[2022-07-18 13:41] LABS: ALBUMIN 2.5 G/DL (3.2-5.2); ALKALINE PHOSPHATASE 270 U/L (46-116); ALT/SGPT 18 U/L (7.0-40); AST/SGOT 23 U/L (<34); BLOOD UREA NITROGEN 13 MG/DL (9-23); CALCIUM LEVEL 8.6 MG/DL (8.3-10.6); CARBON DIOXIDE LEVEL 24 MMOL/L (20-31); CHLORIDE LEVEL 107 MMOL/L (98-107); CREATININE FOR GFR 0.77 MG/DL (0.55-1.30); GLOMERULAR FILTRATION RATE > 60.0 (>39); GLUCOSE, FASTING 117 MG/DL (74-106); POTASSIUM SERUM 4.5 MMOL/L (3.5-5.1); SODIUM LEVEL 139 MMOL/L (136-145); TOTAL PROTEIN 5.1 G/DL (5.7-8.2)
[2022-07-18] MEDS: LR 1,000 ML IV SCH (18:07)
[2022-07-18] MEDS: PIPERACILLIN/TAZOBACTAM SOD 3.375 GM in D5W MINI-BAG PLUS 50 ML IV SCH ×2 (18:08→22:16)
[2022-07-18] MEDS: MAGNESIUM OXIDE 400MG TAB (MAG-OX) PO SCH (21:45)
[2022-07-18] MEDS: POTASSIUM CHLORIDE 10MEQ SR TABLET PO SCH (21:45)
[2022-07-18] MEDS: PANTOPRAZOLE 40MG VIAL IV SCH (21:45)
[2022-07-18] MEDS: PERCOCET 5MG/325MG TAB PO PRN (21:46)
[2022-07-19] MEDS: LR 1,000 ML IV SCH ×2 (04:28→15:30)
[2022-07-19] MEDS: PIPERACILLIN/TAZOBACTAM SOD 3.375 GM in D5W MINI-BAG PLUS 50 ML IV SCH ×4 (04:30→23:44)
[2022-07-19 06:00] VITALS: BP 114/59
[2022-07-19 06:41] LABS: BASO # 0.1 10^3/uL (0.0-0.2); BASO % 0.6 % (0.0-1.0); EOS # 0.1 10^3/uL (0.0-0.5); EOS % 1.2 % (0.0-3.0); HEMATOCRIT 36.2 % (36.0-47.0); HEMOGLOBIN 11.4 g/dl (12.0-15.5); LYMPH # 1.3 10^3/uL (1.5-5.0); LYMPH % 11.9 % (24.0-44.0); MEAN CORPUSCULAR HEMOGLOBIN 27.6 pg (27.0-33.0); MEAN CORPUSCULAR HGB CONC 31.5 g/dl (32.0-36.5); MEAN CORPUSCULAR VOLUME 87.7 fl (80.0-96.0); MONO # 0.8 10^3/uL (0.0-0.8); MONO % 6.7 % (2.0-8.0); NEUTROPHILS # 8.7 10^3/uL (1.5-8.5); NEUTROPHILS % 77.2 % (36.0-66.0); PLATELET COUNT, AUTOMATED 176 10^3/uL (150-450); RED BLOOD COUNT 4.13 10^6/uL (4.00-5.40); WHITE BLOOD COUNT 11.2 10^3/uL (4.0-10.0)
[2022-07-19 06:51] LABS: BLOOD UREA NITROGEN 13 MG/DL (9-23); CALCIUM LEVEL 8.3 MG/DL (8.3-10.6); CARBON DIOXIDE LEVEL 21 MMOL/L (20-31); CHLORIDE LEVEL 105 MMOL/L (98-107); CREATININE FOR GFR 0.83 MG/DL (0.55-1.30); GLOMERULAR FILTRATION RATE > 60.0 (>39); GLUCOSE, FASTING 122 MG/DL (74-106); POTASSIUM SERUM 4.3 MMOL/L (3.5-5.1); SODIUM LEVEL 138 MMOL/L (136-145)
[2022-07-19 08:00] VITALS: BP 113/76
[2022-07-19] MEDS ORDERED: LIDOCAINE 1% MDV 20ML VIAL IM ONE (08:05)
[2022-07-19] MEDS: DOCUSATE SODIUM 100MG CAPSULE PO SCH ×2 (09:37→21:05)
[2022-07-19] MEDS: CYANOCOBALAMIN 500 MCG TAB PO SCH (09:38)
[2022-07-19] MEDS: ENOXAPARIN 30MG/0.3ML SYRINGE (J1650 PER 10MG) SC SCH (09:39)
[2022-07-19 14:00] VITALS: BP 115/56
[2022-07-19 14:05] VITALS: BP 118/56
[2022-07-19 18:40] VITALS: BP 113/61
[2022-07-19] MEDS ORDERED: ACETAMINOPHEN 1000MG 100ML IV BAG IV PRN (18:40)
[2022-07-19 20:00] VITALS: BP 104/58
[2022-07-19] MEDS: PANTOPRAZOLE 40MG VIAL IV SCH (21:04)
[2022-07-19] MEDS: MAGNESIUM OXIDE 400MG TAB (MAG-OX) PO SCH (21:05)
[2022-07-20] MEDS: LR 1,000 ML IV SCH ×3 (03:33→20:06)
[2022-07-20] MEDS: PIPERACILLIN/TAZOBACTAM SOD 3.375 GM in D5W MINI-BAG PLUS 50 ML IV SCH ×4 (05:53→22:39)
[2022-07-20 06:00] VITALS: BP 106/59
[2022-07-20 07:07] LABS: HEMATOCRIT 34.4 % (36.0-47.0); HEMOGLOBIN 10.9 g/dl (12.0-15.5); MEAN CORPUSCULAR HEMOGLOBIN 27.9 pg (27.0-33.0); MEAN CORPUSCULAR HGB CONC 31.7 g/dl (32.0-36.5); MEAN CORPUSCULAR VOLUME 88.2 fl (80.0-96.0)
[2022-07-20 07:32] LABS: ALBUMIN 1.8 G/DL (3.2-5.2); ALKALINE PHOSPHATASE 283 U/L (46-116); ALT/SGPT 15 U/L (7.0-40); AST/SGOT 16 U/L (<34); BILIRUBIN,TOTAL 1.3 MG/DL (0.3-1.2); BLOOD UREA NITROGEN 10 MG/DL (9-23); CALCIUM LEVEL 8.1 MG/DL (8.3-10.6); CARBON DIOXIDE LEVEL 21 MMOL/L (20-31); CHLORIDE LEVEL 106 MMOL/L (98-107); CREATININE FOR GFR 0.76 MG/DL (0.55-1.30); GLOMERULAR FILTRATION RATE > 60.0 (>39); GLUCOSE, FASTING 109 MG/DL (74-106); POTASSIUM SERUM 3.9 MMOL/L (3.5-5.1); SODIUM LEVEL 140 MMOL/L (136-145); TOTAL PROTEIN 4.3 G/DL (5.7-8.2)
[2022-07-20 07:50] LABS: ATYPICAL LYMPH 2 % (0-5); EOSINOPHILS 1 % (0-3); LYMPHOCYTES 7 % (16-44); MONOCYTES 6 % (0-5); NEUTROPHILS 83 % (28-66)
[2022-07-20 07:52] LABS: PLATELET CLUMPS MODERATE AMT; PLATELET ESTIMATE INVALID (NORMAL)
[2022-07-20 08:00] VITALS: BP 103/55
[2022-07-20 08:02] VITALS: BP 98/52
[2022-07-20] MEDS: DOCUSATE SODIUM 100MG CAPSULE PO SCH ×2 (09:00→20:06)
[2022-07-20] MEDS: LACTOBACILLUS ACIDOPHILUS CAP (BACID) PO SCH ×3 (09:54→20:06)
[2022-07-20] MEDS: CYANOCOBALAMIN 500 MCG TAB PO SCH (09:54)
[2022-07-20] MEDS: ENOXAPARIN 30MG/0.3ML SYRINGE (J1650 PER 10MG) SC SCH (09:55)
[2022-07-20 14:00] VITALS: BP 117/62
[2022-07-20] MEDS: MAGNESIUM OXIDE 400MG TAB (MAG-OX) PO SCH (20:06)
[2022-07-20] MEDS: PANTOPRAZOLE 40MG VIAL IV SCH (20:06)
[2022-07-20 21:20] VITALS: BP 113/61
[2022-07-21 05:30] VITALS: BP 107/52
[2022-07-21] MEDS: PIPERACILLIN/TAZOBACTAM SOD 3.375 GM in D5W MINI-BAG PLUS 50 ML IV SCH ×4 (06:07→22:24)
[2022-07-21 06:24] LABS: HEMATOCRIT 30.2 % (36.0-47.0); HEMOGLOBIN 9.8 g/dl (12.0-15.5); MEAN CORPUSCULAR HEMOGLOBIN 27.9 pg (27.0-33.0); MEAN CORPUSCULAR HGB CONC 32.5 g/dl (32.0-36.5); PLATELET COUNT, AUTOMATED 193 10^3/uL (150-450); RED BLOOD COUNT 3.51 10^6/uL (4.00-5.40); WHITE BLOOD COUNT 9.4 10^3/uL (4.0-10.0)
[2022-07-21 07:05] LABS: ATYPICAL LYMPH 2 % (0-5); EOSINOPHILS 2 % (0-3); LYMPHOCYTES 5 % (16-44); MONOCYTES 7 % (0-5); NEUTROPHILS 83 % (28-66)
[2022-07-21 07:09] LABS: PLATELET CLUMPS SMALL AMT; PLATELET ESTIMATE NORMAL (NORMAL)
[2022-07-21] MEDS: DOCUSATE SODIUM 100MG CAPSULE PO SCH ×2 (09:00→20:06)
[2022-07-21] MEDS: LACTOBACILLUS ACIDOPHILUS CAP (BACID) PO SCH ×3 (09:22→20:20)
[2022-07-21] MEDS: CYANOCOBALAMIN 500 MCG TAB PO SCH (09:22)
[2022-07-21] MEDS: ENOXAPARIN 30MG/0.3ML SYRINGE (J1650 PER 10MG) SC SCH (09:22)
[2022-07-21 14:00] VITALS: BP 106/54
[2022-07-21] MEDS: MAGNESIUM OXIDE 400MG TAB (MAG-OX) PO SCH (20:20)
[2022-07-21] MEDS: PANTOPRAZOLE 40MG VIAL IV SCH (20:20)
[2022-07-21 21:00] VITALS: BP 101/54
[2022-07-22 04:30] VITALS: BP 105/58
[2022-07-22] MEDS: PIPERACILLIN/TAZOBACTAM SOD 3.375 GM in D5W MINI-BAG PLUS 50 ML IV SCH ×2 (05:36→12:18)
[2022-07-22] MEDS: GASTROGRAFIN SOLUTION 30ML PO SCH ×2 (07:57→08:36)
[2022-07-22] MEDS: LACTOBACILLUS ACIDOPHILUS CAP (BACID) PO SCH (07:58)
[2022-07-22] MEDS: CYANOCOBALAMIN 500 MCG TAB PO SCH (07:58)
[2022-07-22] MEDS: ENOXAPARIN 30MG/0.3ML SYRINGE (J1650 PER 10MG) SC SCH (07:59)
[2022-07-22] MEDS: DOCUSATE SODIUM 100MG CAPSULE PO SCH (08:02)
[2022-07-22] MEDS ORDERED: ISOVUE-370 76% 100ML VIAL As Ordered ONE (09:23)
[2022-07-22] MEDS ORDERED: LEVO1TAB39 PO (12:58)
[2022-07-22 14:00] VITALS: BP 108/52
== END 2022-07-22 16:09 | disposition home or self-care (01) | DRG 418 ==
LOC: M OR 09:27 → M MSPAV 17:05
PROVIDERS: ADMIT Surgery; ATTEND Surgery
PROC: 8E0W4CZ Robotic Assisted Procedure of Trunk Region, Percutaneous Endoscopic Approach (ICD-10-PCS; 2022-07-15)
PROC: 0FT44ZZ Resection of Gallbladder, Percutaneous Endoscopic Approach (ICD-10-PCS; principal; 2022-07-15 11:40)
DX: K81.1 Chronic cholecystitis (principal); C85.90 Non-Hodgkin lymphoma, unspecified, unspecified site; K82.3 Fistula of gallbladder; J90 Pleural effusion, not elsewhere classified; K74.60 Unspecified cirrhosis of liver; Z79.899 Other long term (current) drug therapy

== ENCOUNTER → 2023-03-27 | Outpatient (CLI) | payer MEDICARE, BC, OTHER ==
[~2023-03-27] MED LIST changes: -BUPIVACAINE HCL 0.25% 30ML VIAL As Ordered ONE; -CelecoXIB 400 MG CAP PO ONE; +GASTROGRAFIN SOLUTION 30ML As Ordered ONE; -INDOCYANINE GREEN 25MG VIAL (IC-GREEN) As Ordered ONE; -INDOCYANINE GREEN 25MG VIAL (IC-GREEN) IV ONE; +ISOVUE-370 76% 100ML VIAL As Ordered ONE; +LEVO1TAB39 PO; -LIDOCAINE 1% SDV 30ML VIAL As Ordered ONE; -LIDOCAINE 2% 100MG/5ML SDV (FOR ANES.) As Ordered ONE; +METR-265 PO; -ONDANSETRON 4MG 2ML VIAL As Ordered ONE; +PERCOCET PO; +POTA-298; +POTA-298 PO; -POTA1TAB14 PO; -ROCURONIUM BROMIDE 50 MG/5 ML VIAL As Ordered ONE; +ROPI0.5T33 PO; -cefoTEtan DISODIUM 2 GM in D5W MINI-BAG PLUS 50 ML IV ONE; -fentaNYL 100 MCG/2 ML INJECTION As Ordered ONE; -propofoL 200 MG/20 ML VIAL As Ordered ONE
== END ==
LOC: M RAD 11:39
PROVIDERS: ATTEND Specialist
DX: C85.90 Non-Hodgkin lymphoma, unspecified, unspecified site (principal)
CPT/HCPCS: 71260; 74177; Q9963; Q9967

== ENCOUNTER → 2023-06-02 | Outpatient (CLI) | payer MEDICARE, BC, OTHER ==
[~2023-06-02] MED LIST changes: -GASTROGRAFIN SOLUTION 30ML As Ordered ONE; -ISOVUE-370 76% 100ML VIAL As Ordered ONE
== END ==
LOC: M ONCR 14:11
PROVIDERS: ATTEND General Practice
DX: C82.05 Follicular lymphoma grade I, lymph nodes of inguinal region and lower limb (principal); Z71.2 Person consulting for explanation of examination or test findings; Z79.899 Other long term (current) drug therapy; Z87.891 Personal history of nicotine dependence; Z88.1 Allergy status to other antibiotic agents; Z88.2 Allergy status to sulfonamides; Z98.51 Tubal ligation status

== ENCOUNTER 2023-07-08 13:06 | Outpatient (RCR) | payer MEDICARE, BC, OTHER | END 2023-07-10 | LOC: M ONCR 13:06 | PROVIDERS: ATTEND General Practice | DX: Z51.0 Encounter for antineoplastic radiation therapy (principal); C82.05 Follicular lymphoma grade I, lymph nodes of inguinal region and lower limb ==

== ENCOUNTER 2023-09-06 12:30 | Inpatient (IN) | payer MEDICARE, BC, OTHER ==
[2023-09-06] VITALS (12 sets, daily range): BP systolic 96–108; BP diastolic 48–53; TEMP 97.5–98; O2SAT 92–97
[~2023-09-06] VITALS: Ht 160 cm; Wt 82.1 kg
[2023-09-06] MEDS ORDERED: ACETAMINOPHEN TAB 650MG DOSE (2X325MG) PO ONE (13:15)
[2023-09-06 13:28] LABS: VENOUS BASE EXCESS 1.4 (-2.0-2.0); VENOUS HCO3 26.3 MMOL/L (23.0-27.0); VENOUS O2 SATURATION 49.1 % (60.0-80.0); VENOUS PARTIAL PRESSURE CO2 42.9 mmHg (38.0-50.0); VENOUS PARTIAL PRESSURE O2 26.1 mmHg (30.0-50.0); VENOUS PH 7.406 UNITS (7.330-7.430); VENOUS STANDARD HCO3 24.4 MMOL/L; VENOUS TOTAL CO2 27.7 MMOL/L (24.0-28.0)
[2023-09-06 13:35] LABS: BASO % 0.3 % (0.0-1.0); HEMATOCRIT 40.9 % (36.0-47.0); HEMOGLOBIN 13.7 g/dl (12.0-15.5); LYMPH # 0.5 10^3/uL (1.5-5.0); LYMPH % 8.3 % (24.0-44.0); MEAN CORPUSCULAR HEMOGLOBIN 28.5 pg (27.0-33.0); MEAN CORPUSCULAR HGB CONC 33.5 g/dl (32.0-36.5); MONO # 0.9 10^3/uL (0.0-0.8); NEUTROPHILS # 4.6 10^3/uL (1.5-8.5); NEUTROPHILS % 73.4 % (36.0-66.0); PLATELET COUNT, AUTOMATED 137 10^3/uL (150-450); RED BLOOD COUNT 4.81 10^6/uL (4.00-5.40); WHITE BLOOD COUNT 6.3 10^3/uL (4.0-10.0)
[2023-09-06 13:56] LABS: CK-MB VALUE MASS < 1.0 NG/ML (<3.6); CPK CREATINE PHOSPHOKINASE 48 U/L (34-145); MB/CK RELATIVE INDEX 2.08 (< OR =4)
[2023-09-06 14:00] LABS: THYROXINE (T4) 10.2 UG/DL (4.5-10.9)
[2023-09-06 14:05] LABS: ALBUMIN 2.7 G/DL (3.2-5.2); ALKALINE PHOSPHATASE 149 U/L (46-116); ALT/SGPT 21 U/L (7.0-40); AST/SGOT 26 U/L (<34); BILIRUBIN,DIRECT 0.6 MG/DL (<0.4); BILIRUBIN,TOTAL 1.2 MG/DL (0.3-1.2); BLOOD UREA NITROGEN 17 MG/DL (9-23); CALCIUM LEVEL 7.8 MG/DL (8.3-10.6); CARBON DIOXIDE LEVEL 28 MMOL/L (20-31); CHLORIDE LEVEL 105 MMOL/L (98-107); CREATININE FOR GFR 0.94 MG/DL (0.55-1.30); GLOMERULAR FILTRATION RATE > 60.0 (>39); GLUCOSE, FASTING 119 MG/DL (74-106); POTASSIUM SERUM 2.8 MMOL/L (3.5-5.1); SODIUM LEVEL 143 MMOL/L (136-145); TOTAL PROTEIN 5.4 G/DL (5.7-8.2)
[2023-09-06] MEDS ORDERED: KCL 10MEQ/100ML SWI (KRUN) 10 MEQ in IV 1 EA IV ONE (14:15)
[2023-09-06] MEDS ORDERED: ISOVUE-370 76% 100ML VIAL As Ordered ONE (14:17)
[2023-09-06 14:36] LABS: MAGNESIUM LEVEL 1.3 MG/DL (1.8-2.4)
[2023-09-06 15:07] LABS: CK-MB VALUE MASS < 1.0 NG/ML (<3.6)
[2023-09-06 15:12] LABS: CPK CREATINE PHOSPHOKINASE 53 U/L (34-145); MB/CK RELATIVE INDEX 1.88 (< OR =4)
[2023-09-06] MEDS ORDERED: HEPARIN SOD (PORCINE) 5000UNITS/ML 1ML VIAL/SYRINGE IV PRN (15:25)
[2023-09-06] MEDS ORDERED: HEPARIN SOD (PORCINE) 5000UNITS/ML 1ML VIAL/SYRINGE IV ONE (15:25)
[2023-09-06] MEDS ORDERED: HEPARIN DRIP 25,000 UNITS in IV 1 EA IV SCH (15:25)
[2023-09-06] MEDS ORDERED: ACETAMINOPHEN TAB 650MG DOSE (2X325MG) PO PRN (16:45)
[2023-09-06 16:52] LABS: INR 1.28; PROTHROMBIN TIME 15.6 SECONDS (12.5-14.5)
[2023-09-06 16:53] LABS: PARTIAL THROMBOPLASTIN TIME 31.2 SECONDS (24.8-34.2)
[2023-09-06] MEDS ORDERED: POTASSIUM CHLORIDE 10MEQ SR TABLET PO ONE ×2 (17:00→20:00)
[2023-09-06] MEDS ORDERED: HOME MED LIST COMPLETE! XX SCH (17:50)
[2023-09-06] MEDS: guaiFENesin 200 MG TAB PO SCH ×2 (18:00→23:04)
[2023-09-06] MEDS: ENOXAPARIN 80MG/0.8ML SYRINGE (J1650 PER 10MG) SC SCH (18:05)
[2023-09-06] MEDS: MAG SULF 1GM/100ML (MAG RUN) 1 GM in IV 1 EA IV SCH ×4 (18:06→22:22)
[2023-09-06] MEDS ORDERED: LEVALBUTEROL 1.25MG 0.5ML CONCENTRATE NEB INH PRN (18:15)
[2023-09-06] MEDS: LEVALBUTEROL 1.25MG 0.5ML CONCENTRATE NEB INH SCH (20:00)
[2023-09-06] MEDS: LEVALBUTEROL HFA 45MCG/ACT 15GM INHALER INH PRN (20:52)
[2023-09-07] VITALS (35 sets, daily range): BP systolic 85–108; BP diastolic 42–64; TEMP 97.9–99; O2SAT 84–100
[2023-09-07 00:55] LABS: MAGNESIUM LEVEL 2.5 MG/DL (1.8-2.4); POTASSIUM SERUM 2.7 MMOL/L (3.5-5.1)
[2023-09-07] MEDS: LEVALBUTEROL 1.25MG 0.5ML CONCENTRATE NEB INH SCH ×5 (01:11→20:01)
[2023-09-07] MEDS: LEVALBUTEROL HFA 45MCG/ACT 15GM INHALER INH PRN (01:11)
[2023-09-07] MEDS: KCL 10MEQ/100ML SWI (KRUN) 10 MEQ in IV 1 EA IV SCH ×4 (01:32→06:24)
[2023-09-07] MEDS ORDERED: POTASSIUM CHLORIDE 10MEQ SR TABLET PO ONE (02:00)
[2023-09-07] MEDS: guaiFENesin 200 MG TAB PO SCH ×3 (06:00→17:25)
[2023-09-07 06:16] LABS: BASO % 0.4 % (0.0-1.0); EOS % 0.4 % (0.0-3.0); HEMATOCRIT 35.6 % (36.0-47.0); LYMPH # 0.7 10^3/uL (1.5-5.0); LYMPH % 14.6 % (24.0-44.0); MEAN CORPUSCULAR HEMOGLOBIN 28.1 pg (27.0-33.0); MEAN CORPUSCULAR HGB CONC 32.9 g/dl (32.0-36.5); MEAN CORPUSCULAR VOLUME 85.6 fl (80.0-96.0); MONO # 0.6 10^3/uL (0.0-0.8); MONO % 13.1 % (2.0-8.0); NEUTROPHILS # 3.1 10^3/uL (1.5-8.5); NEUTROPHILS % 66.8 % (36.0-66.0); PLATELET COUNT, AUTOMATED 127 10^3/uL (150-450); RED BLOOD COUNT 4.16 10^6/uL (4.00-5.40); WHITE BLOOD COUNT 4.7 10^3/uL (4.0-10.0)
[2023-09-07 06:17] LABS: HEMOGLOBIN 11.7 g/dl (12.0-15.5)
[2023-09-07] MEDS: ENOXAPARIN 80MG/0.8ML SYRINGE (J1650 PER 10MG) SC SCH ×2 (06:27→17:54)
[2023-09-07 06:41] LABS: BLOOD UREA NITROGEN 15 MG/DL (9-23); CALCIUM LEVEL 7.7 MG/DL (8.3-10.6); CARBON DIOXIDE LEVEL 26 MMOL/L (20-31); CHLORIDE LEVEL 109 MMOL/L (98-107); CREATININE FOR GFR 0.84 MG/DL (0.55-1.30); GLOMERULAR FILTRATION RATE > 60.0 (>39); GLUCOSE, FASTING 108 MG/DL (74-106); MAGNESIUM LEVEL 2.1 MG/DL (1.8-2.4); POTASSIUM SERUM 4.4 MMOL/L (3.5-5.1); SODIUM LEVEL 142 MMOL/L (136-145)
[2023-09-07 07:29] LABS: CK-MB VALUE MASS < 1.0 NG/ML (<3.6)
[2023-09-07 07:30] LABS: CPK CREATINE PHOSPHOKINASE 56 U/L (34-145); MB/CK RELATIVE INDEX 1.78 (< OR =4)
[2023-09-07] MEDS: CYANOCOBALAMIN 500 MCG TAB PO SCH (08:49)
[2023-09-07] MEDS ORDERED: NS 500 ML IV ONE (09:00)
[2023-09-07] MEDS: NS 1,000 ML IV SCH (10:03)
[2023-09-07] MEDS ORDERED: NS 1,000 ML IV ONE (10:05)
[2023-09-07 10:19] LABS: PROCALCITONIN 0.09 ng/ml
[2023-09-07 14:08] LABS: HEMATOCRIT 34.1 % (36.0-47.0); HEMOGLOBIN 11.3 g/dl (12.0-15.5)
[2023-09-07] MEDS: ADVAIR HFA 230/21MCG INHALER INH SCH (20:01)
[2023-09-08] VITALS (9 sets, daily range): BP systolic 88–103; BP diastolic 50–69; TEMP 97.9–98.9; O2SAT 93–98
[2023-09-08] MEDS: guaiFENesin 200 MG TAB PO SCH ×5 (01:00→23:46)
[2023-09-08] MEDS: LEVALBUTEROL 1.25MG 0.5ML CONCENTRATE NEB INH SCH ×4 (01:25→20:43)
[2023-09-08 04:20] LABS: BASO % 0.2 % (0.0-1.0); EOS % 0.2 % (0.0-3.0); HEMATOCRIT 31.3 % (36.0-47.0); HEMOGLOBIN 10.2 g/dl (12.0-15.5); LYMPH # 0.4 10^3/uL (1.5-5.0); LYMPH % 10.7 % (24.0-44.0); MEAN CORPUSCULAR HEMOGLOBIN 27.9 pg (27.0-33.0); MEAN CORPUSCULAR HGB CONC 32.6 g/dl (32.0-36.5); MEAN CORPUSCULAR VOLUME 85.5 fl (80.0-96.0); MONO # 0.5 10^3/uL (0.0-0.8); MONO % 11.9 % (2.0-8.0); NEUTROPHILS % 73.4 % (36.0-66.0); PLATELET COUNT, AUTOMATED 128 10^3/uL (150-450); RED BLOOD COUNT 3.66 10^6/uL (4.00-5.40); WHITE BLOOD COUNT 4.1 10^3/uL (4.0-10.0)
[2023-09-08 04:51] LABS: BLOOD UREA NITROGEN 11 MG/DL (9-23); CALCIUM LEVEL 7.4 MG/DL (8.3-10.6); CARBON DIOXIDE LEVEL 24 MMOL/L (20-31); CHLORIDE LEVEL 109 MMOL/L (98-107); CREATININE FOR GFR 0.74 MG/DL (0.55-1.30); GLOMERULAR FILTRATION RATE > 60.0 (>39); GLUCOSE, FASTING 125 MG/DL (74-106); MAGNESIUM LEVEL 1.8 MG/DL (1.8-2.4); POTASSIUM SERUM 3.8 MMOL/L (3.5-5.1); SODIUM LEVEL 140 MMOL/L (136-145)
[2023-09-08] MEDS: NS 1,000 ML IV SCH (05:26)
[2023-09-08] MEDS: ENOXAPARIN 80MG/0.8ML SYRINGE (J1650 PER 10MG) SC SCH ×2 (06:09→17:15)
[2023-09-08] MEDS: ADVAIR HFA 230/21MCG INHALER INH SCH ×2 (08:15→20:43)
[2023-09-08] MEDS: TIOTROPIUM INHALER/CAPSULE (SPIRIVA) INH SCH (08:15)
[2023-09-08] MEDS: CYANOCOBALAMIN 500 MCG TAB PO SCH (09:03)
[2023-09-08 11:05] LABS: HEMATOCRIT 32.4 % (36.0-47.0); HEMOGLOBIN 10.5 g/dl (12.0-15.5)
[2023-09-08] MEDS: CALCIUM CARBONATE 500 MG CHEW U/D PO PRN ×2 (15:36→21:58)
[2023-09-09] VITALS (12 sets, daily range): BP systolic 94–98; BP diastolic 50–56; TEMP 97.5–97.8; O2SAT 92–97
[2023-09-09] MEDS: LEVALBUTEROL 1.25MG 0.5ML CONCENTRATE NEB INH SCH ×3 (02:00→13:37)
[2023-09-09] MEDS: guaiFENesin 200 MG TAB PO SCH ×2 (06:00→12:00)
[2023-09-09 06:07] LABS: BASO % 0.3 % (0.0-1.0); EOS % 0.3 % (0.0-3.0); HEMATOCRIT 31.3 % (36.0-47.0); HEMOGLOBIN 10.5 g/dl (12.0-15.5); LYMPH # 0.4 10^3/uL (1.5-5.0); MEAN CORPUSCULAR HEMOGLOBIN 28.4 pg (27.0-33.0); MEAN CORPUSCULAR HGB CONC 33.5 g/dl (32.0-36.5); MEAN CORPUSCULAR VOLUME 84.6 fl (80.0-96.0); MONO # 0.5 10^3/uL (0.0-0.8); MONO % 12.1 % (2.0-8.0); NEUTROPHILS # 2.8 10^3/uL (1.5-8.5); NEUTROPHILS % 74.1 % (36.0-66.0); PLATELET COUNT, AUTOMATED 128 10^3/uL (150-450); WHITE BLOOD COUNT 3.8 10^3/uL (4.0-10.0)
[2023-09-09] MEDS: ENOXAPARIN 80MG/0.8ML SYRINGE (J1650 PER 10MG) SC SCH (06:28)
[2023-09-09 06:32] LABS: BLOOD UREA NITROGEN 9 MG/DL (9-23); CALCIUM LEVEL 7.3 MG/DL (8.3-10.6); CARBON DIOXIDE LEVEL 23 MMOL/L (20-31); CHLORIDE LEVEL 108 MMOL/L (98-107); CREATININE FOR GFR 0.64 MG/DL (0.55-1.30); GLOMERULAR FILTRATION RATE > 60.0 (>39); GLUCOSE, FASTING 107 MG/DL (74-106); MAGNESIUM LEVEL 1.5 MG/DL (1.8-2.4); POTASSIUM SERUM 3.4 MMOL/L (3.5-5.1); SODIUM LEVEL 139 MMOL/L (136-145)
[2023-09-09] MEDS ORDERED: POTASSIUM CHLORIDE 10MEQ SR TABLET PO STA (07:29)
[2023-09-09] MEDS: TIOTROPIUM INHALER/CAPSULE (SPIRIVA) INH SCH (08:04)
[2023-09-09] MEDS: ADVAIR HFA 230/21MCG INHALER INH SCH (08:04)
[2023-09-09] MEDS ORDERED: ELIQ5TAB PO (08:57)
[2023-09-09] MEDS: CYANOCOBALAMIN 500 MCG TAB PO SCH (09:04)
[2023-09-09] MEDS: MAG SULF 1GM/100ML (MAG RUN) 100 ML IV SCH ×2 (09:05→10:42)
[2023-09-09] MEDS ORDERED: APIXABAN 5 MG TAB (ELIQUIS) PO SCH (21:00)
== END 2023-09-09 14:59 | disposition home or self-care (01) | DRG 175 ==
LOC: EDBD 12:30 → M ED 12:30 → M ED INP 16:21 → M PCU 17:33
PROVIDERS: ADMIT Internal Medicine; ATTEND Internal Medicine
PROC: B246ZZZ Ultrasonography of Right and Left Heart (ICD-10-PCS; principal; 2023-09-08)
DX: I26.94 Multiple subsegmental thrombotic pulmonary emboli without acute cor pulmonale (principal); U07.1 COVID-19; C82.33 Follicular lymphoma grade IIIa, intra-abdominal lymph nodes; I50.32 Chronic diastolic (congestive) heart failure; D80.1 Nonfamilial hypogammaglobulinemia; I11.0 Hypertensive heart disease with heart failure; I87.2 Venous insufficiency (chronic) (peripheral); J44.9 Chronic obstructive pulmonary disease, unspecified; D51.0 Vitamin B12 deficiency anemia due to intrinsic factor deficiency; J47.9 Bronchiectasis, uncomplicated; K74.60 Unspecified cirrhosis of liver; K75.81 Nonalcoholic steatohepatitis (NASH); R91.1 Solitary pulmonary nodule; I95.9 Hypotension, unspecified; E87.6 Hypokalemia; E83.42 Hypomagnesemia; Z79.69 Long term (current) use of other immunomodulators and immunosuppressants; I89.0 Lymphedema, not elsewhere classified; Z90.49 Acquired absence of other specified parts of digestive tract; Z98.41 Cataract extraction status, right eye; Z98.42 Cataract extraction status, left eye; Z96.1 Presence of intraocular lens; Z96.653 Presence of artificial knee joint, bilateral; Z87.891 Personal history of nicotine dependence; Z79.899 Other long term (current) drug therapy; Z88.2 Allergy status to sulfonamides; Z88.8 Allergy status to other drugs, medicaments and biological substances

== ENCOUNTER → 2023-09-12 | Outpatient (CLI) | payer MEDICARE, BC, OTHER ==
[~2023-09-12] MED LIST changes: +ELIQ5TAB PO; +GASTROGRAFIN SOLUTION 30ML As Ordered ONE; +ISOVUE-370 76% 100ML VIAL As Ordered ONE
== END ==
LOC: M RAD 12:50
PROVIDERS: ATTEND Nurse Practitioner
DX: C82.90 Follicular lymphoma, unspecified, unspecified site (principal)
CPT/HCPCS: 70491; 74177; Q9963; Q9967

== ENCOUNTER → 2023-09-30 | Outpatient (CLI) | payer MEDICARE, BC, OTHER ==
[~2023-09-30] MED LIST changes: -GASTROGRAFIN SOLUTION 30ML As Ordered ONE; -ISOVUE-370 76% 100ML VIAL As Ordered ONE
== END ==
LOC: M PLAIMG 16:29
PROVIDERS: ATTEND Family Medicine
DX: R05.9 Cough, unspecified (principal)

== ENCOUNTER → 2023-11-12 | Outpatient (CLI) | payer MEDICARE, BC ==
[~2023-11-12] MED LIST changes: +DAPS100T22 PO; -DAPS10TA PO
== END ==
LOC: M ONCR 10:24
PROVIDERS: ATTEND General Practice
DX: C82.05 Follicular lymphoma grade I, lymph nodes of inguinal region and lower limb (principal); C82.91 Follicular lymphoma, unspecified, lymph nodes of head, face, and neck; D64.89 Other specified anemias; Z71.2 Person consulting for explanation of examination or test findings; Z79.01 Long term (current) use of anticoagulants; Z79.620 Long term (current) use of immunosuppressive biologic; Z79.899 Other long term (current) drug therapy; Z86.19 Personal history of other infectious and parasitic diseases; Z87.891 Personal history of nicotine dependence; Z88.1 Allergy status to other antibiotic agents; Z88.2 Allergy status to sulfonamides; Z92.3 Personal history of irradiation

== ENCOUNTER 2023-11-20 07:12 | Outpatient (CLI) | payer MEDICARE, BC ==
[~2023-11-20] VITALS: Ht 160 cm; Wt 74.1 kg
[~2023-11-20 07:12] MED LIST changes: +ALBUTEROL SULFATE 2.5MG/0.5ML INH NEB SOLN INH PRN; +EPINEPHrine INJ 1 MG/ML 1ML AMP IM PRN; +diphenhydrAMINE 50MG/ML VIAL IV PRN; +methylPREDNISolone 125MG 2ML VIAL IV PRN
[2023-11-20 07:34] VITALS: BP 121/64; O2SAT 95
[2023-11-20] MEDS: NS 1,000 ML IV SCH (07:46)
[2023-11-20] MEDS: ACETAMINOPHEN 650MG PO PRIOR TO INFUSION PO ONE (07:47)
[2023-11-20] MEDS: methylPREDNISolone 40MG 1ML VIAL IV ONE (07:47)
[2023-11-20] MEDS: diphenhydrAMINE 25MG PO PRIOR TO INFUSION PO ONE (07:47)
[2023-11-20] MEDS: IMMUNE GLOBULIN 10% 20 GM in IV 1 EA IV ONE (08:22)
[2023-11-20 08:50] VITALS: BP 109/55; O2SAT 96
[2023-11-20 09:20] VITALS: BP 111/56; O2SAT 96
[2023-11-20 09:50] VITALS: BP 120/61; O2SAT 96
[2023-11-20] MEDS: IMMUNE GLOBULIN 10% 10 GM in IV 1 EA IV ONE (10:39)
[2023-11-20] MEDS: IMMUNE GLOBULIN 10% 5 GM in IV 1 EA IV ONE (10:40)
[2023-11-20 10:50] VITALS: BP 119/66; O2SAT 96
[2023-11-20 11:30] VITALS: BP 113/58; O2SAT 97
== END 2023-11-20 11:45 ==
LOC: M INFU 07:12
PROVIDERS: ATTEND Specialist
DX: C85.90 Non-Hodgkin lymphoma, unspecified, unspecified site (principal); D80.1 Nonfamilial hypogammaglobulinemia; Z88.2 Allergy status to sulfonamides; Z88.1 Allergy status to other antibiotic agents
CPT/HCPCS: 96365; 96375; J1459; J2919

== ENCOUNTER 2023-12-18 08:12 | Outpatient (CLI) | payer MEDICARE, BC ==
[~2023-12-18 08:12] MED LIST changes: +FERR160T4 PO; +NS 1,000 ML IV SCH; -SLOW160T8 PO
[2023-12-18 08:30] VITALS: BP 122/60; O2SAT 98
[2023-12-18] MEDS: diphenhydrAMINE 25MG PO PRIOR TO INFUSION PO ONE (08:37)
[2023-12-18] MEDS: methylPREDNISolone 40MG 1ML VIAL IV ONE (08:37)
[2023-12-18] MEDS: ACETAMINOPHEN 650MG PO PRIOR TO INFUSION PO ONE (08:37)
[2023-12-18] MEDS: IMMUNE GLOBULIN 10% 20 GM in IV 1 EA IV ONE (08:58)
[2023-12-18] MEDS: IMMUNE GLOBULIN 10% 10 GM in IV 1 EA IV ONE (08:59)
[2023-12-18] MEDS: IMMUNE GLOBULIN 10% 5 GM in IV 1 EA IV ONE (09:00)
[2023-12-18 09:30] VITALS: BP 116/68; O2SAT 96
[2023-12-18 10:00] VITALS: BP 119/74; O2SAT 96
[2023-12-18 10:30] VITALS: BP 112/57; O2SAT 95
[2023-12-18 11:30] VITALS: BP 122/64; O2SAT 96
[2023-12-18 12:10] VITALS: BP 127/75
== END 2023-12-18 12:30 ==
LOC: M INFU 08:12
PROVIDERS: ATTEND Specialist
DX: D80.1 Nonfamilial hypogammaglobulinemia (principal); Z88.1 Allergy status to other antibiotic agents; Z88.2 Allergy status to sulfonamides
CPT/HCPCS: 96365; 96366; 96367; J1459; J2919

== ENCOUNTER → 2024-06-09 | Outpatient (CLI) | payer MEDICARE, BC ==
[~2024-06-09] MED LIST changes: -ALBUTEROL SULFATE 2.5MG/0.5ML INH NEB SOLN INH PRN; -EPINEPHrine INJ 1 MG/ML 1ML AMP IM PRN; +FURO40TA2; +GASTROGRAFIN SOLUTION 30ML As Ordered ONE; +ISOVUE-370 76% 100ML VIAL As Ordered ONE; -NS 1,000 ML IV SCH; +ONDA-284 PO; -ONDA8TAB8 PO; -diphenhydrAMINE 50MG/ML VIAL IV PRN; -methylPREDNISolone 125MG 2ML VIAL IV PRN
== END ==
LOC: M RAD 09:24
PROVIDERS: ATTEND Specialist
DX: C85.90 Non-Hodgkin lymphoma, unspecified, unspecified site (principal)
CPT/HCPCS: 70491; 71260; 74177; Q9963; Q9967

== ENCOUNTER → 2024-12-29 | Outpatient (REF) | payer MEDICARE, BC ==
[~2024-12-29] MED LIST changes: -BIOT1000 PO; +BIOT10002 PO; -GASTROGRAFIN SOLUTION 30ML As Ordered ONE; -ISOVUE-370 76% 100ML VIAL As Ordered ONE; -PRED50TA; -PRED50TA PO; +PRED50TA57; +PRED50TA57 PO
[2024-12-29 11:29] LABS: CHOLESTEROL RISK RATIO 2.32 (<5); HDL CHOLESTEROL 84.2 MG/DL (>40); LDL CHOLESTEROL 95.4 MG/DL (<100); NON-HDL-C 111.8 MG/DL
[2024-12-29 12:19] LABS: HEMOGLOBIN A1c 6.3 % (4.0-6.0)
== END ==
LOC: M LAB REF 10:35
PROVIDERS: ATTEND Family Medicine
DX: I50.32 Chronic diastolic (congestive) heart failure (principal); R73.01 Impaired fasting glucose

== ENCOUNTER → 2025-06-23 | Outpatient (CLI) | payer MEDICARE, BC ==
[~2025-06-23] MED LIST changes: +ACYC200C10 PO; -ACYC200C8 PO; +HYDR12.510 PO; -HYDR12CA PO; +ISOVUE-370 76% 100 ML VIAL ONE; +SLOW1TAB3 PO; -SLOWTAB2 PO
== END ==
LOC: M PLAIMG 07:27
PROVIDERS: ATTEND Specialist
DX: C82.90 Follicular lymphoma, unspecified, unspecified site (principal); J98.11 Atelectasis; K44.9 Diaphragmatic hernia without obstruction or gangrene; R93.2 Abnormal findings on diagnostic imaging of liver and biliary tract; N20.0 Calculus of kidney; N28.1 Cyst of kidney, acquired; I70.0 Atherosclerosis of aorta; I25.10 Atherosclerotic heart disease of native coronary artery without angina pectoris; J47.9 Bronchiectasis, uncomplicated; Z95.828 Presence of other vascular implants and grafts
CPT/HCPCS: 70491; 71275; 74177; Q9967